=== PATIENT | male | born 1965 | race Caucasian/White ===

== ENCOUNTER 2024-02-24 02:09 | Emergency (ER) | payer OTHER, SELFPAY ==
[2024-02-24 02:12] VITALS: BP 138/110
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
[2024-02-24] MEDS: TORADOL 60 MG IM (03:48)
[2024-02-24 04:07] VITALS: BP 148/97
== END 2024-02-24 04:09 | disposition home or self-care (01) ==
LOC: EMR 02:09
PROVIDERS: EMERGENCY PHYSICIAN Emergency Medicine; FAMILY PHYSICIAN Physician Assistant Medical
DX: M60.9 Myositis, unspecified (principal); F41.9 Anxiety disorder, unspecified; K21.9 Gastro-esophageal reflux disease without esophagitis; Z82.49 Family history of ischemic heart disease and other diseases of the circulatory system; Z83.49 Family history of other endocrine, nutritional and metabolic diseases; Z85.840 Personal history of malignant neoplasm of eye; Z86.16 Personal history of COVID-19; Z87.891 Personal history of nicotine dependence
CPT/HCPCS: 99282; 96372

== ENCOUNTER 2024-03-11 10:34 | Emergency (ER) | payer OTHER, SELFPAY ==
[2024-03-11 10:43] VITALS: BP 132/96
--- NOTE | 2024-03-11 11:19 | ED.GENMED ---
History of Present Illness
General
Chief Complaint: Musculo-Skeletal Complaint
Source: patient
Time Seen by Provider: 03/11/24 10:52
Travel History
Have you had any contact with someone who has COVID-19?: No
Do you have any symptoms of coronavirus? Fever > 100 degrees, chills, cough, shortness of breath, sore throat, loss of taste or smell, muscle aches, or headache?: No
History of Present Illness
History of Present Illness:
58-year-old male presenting to the emergency department for evaluation of atraumatic right knee pain x 1 day, states no specific injury but notes that he had fallen 2 days prior not have pain to the right knee following. Patient notes a previous
history of needing his right knee drained and is not sure if this is needed today. Denies any fevers, chills, rigors, calf pain or swelling. Patient states he does have a history of gout but that this is something that has not bothered him in a a
while. Patient did not take anything for his pain prior to arrival to the emergency department.
Past History
Past History
ED Past Medical History: GERD, Psychiatric (anxiety), Other (eye melanoma, head injury, Migraines, Gout) and Other (COVID-18 May 2021); Negative Asthma, HTN, Hypercholesterolemia or NIDDM
ED Past Surgical History: Orthopedic (Right elbow surgery), Tonsilectomy and Other (Left inguinal hernia repair, prior head injury requiring craniotomy)
Patient has exhibited threatening behavior?: No
PSI?: No
Social History
Tobacco: Former smoker (Quit March 2020)
Alcohol: Former (12 pack Beer and shots previously, On Vivitrol inj monthly starting Jun; relapsed 01/07/23)
Drug: None
Personal:
Living: alone
Employment: Employed (at a bar)
Family History
Family History: Other (Sister with thyroid disease); Negative Diabetes, Hypertension, Early CAD or CAD
Review of Systems
Review of Systems
All Other Systems: ROS reviewed and negative except as documented in HPI and ROS
Phy Exam
Physical Exam
Physical Exam:
GENERAL: Alert , in no apparent distress
EYE: conjunctiva clear
Head: Normocephalic atraumatic
NECK: Supple,
ENT: mmm.
LUNGS: no acute respiratory distress
NEUROLOGICAL: Alert and oriented
SKIN: Warm and dry, abrasion to the left forearm and left knee
MUSCULOSKELETAL: Right knee: No obvious deformity, erythema, edema, ecchymosis, abrasions or lacerations. No joint effusion. Tenderness over the proximal portion of the patella. Patient does allow for range of motion with pain. No calf
tenderness or edema. Extremities otherwise warm and well-perfused and neurovascularly intact. No laxity to the joint.
PSYCH: Normal and appropriate interaction.
Scores
Heart Failure Risk
Heart Failure Risk Score: Not Applicable
Heart Score for Chest Pain Patients
STEMI patient?: Not applicable
Withdrawal Assessment of Alcohol
Withdrawal Assessment Completed?: Not applicable
Course
Orders/Labs/Results
Orders:
Orders
03/11/24 10:47
CR Knee- Right 4 Or More View* Urgent
Comment:
Reason For Exam: pain/swelling
03/11/24 11:19
Naproxen [Naprosyn] 500 mg PO NOW STA
Oxycodone/Acetaminophen [Percocet 5/325] 1 tablet PO NOW STA
Vital Signs
Initial and Last Documented VS:
Initial Vital Signs
Temp Pulse Resp BP Pulse Ox
97.8 F 89 16 132/96 94
03/11/24 10:43 03/11/24 10:43 03/11/24 10:43 03/11/24 10:43 03/11/24 10:43
Last Documented Vital Signs
Temp Pulse Resp BP Pulse Ox
97.8 F 89 16 132/96 94
03/11/24 10:43 03/11/24 10:43 03/11/24 10:43 03/11/24 10:43 03/11/24 10:43
MDM/Problems Addressed
Differential Diagnosis Includes:
Osteoarthritis, gout, no concern for septic joint, given lack of injury I have less concern for fracture. Like
MDM/Problems Addressed:
58-year-old male presenting to the emergency department for evaluation of atraumatic right knee pain x 1 day. Has not attempted any medications for relief of pain today. No overlying signs of infection. X-ray was ordered from triage and shows
some mild degenerative changes but otherwise no fracture. No evidence for joint effusion that would require arthrocentesis. Will treat with NSAIDs. Dose of Percocet given in the ER. Patient is otherwise stable for discharge home and outpatient
management with his orthopedist.
*Radiology
Radiology exam reviewed: preliminary read by ED provider (No fracture )
*Pulse Oximetry
Patient hypoxic: no
*Critical Care Note
Total Time (30-74mins, 75-104mins- exclusive of procedures): Not Applicable
ED Attending Note
-
Portions of this chart may have been created with voice recognition software.� Occasional wrong word or��sound alike� substitutions may have occurred due to the inherent limitations of voice recognition software.
Discharge Plan
Departure
Patient Disposition: Home (Routine Discharge)
Date of Disposition: 03/11/24
Time of Disposition: 11:20
Patient with high blood pressure during this ER visit?: No
Discharge Problem:
Knee pain, right
Instructions: Knee Pain (DC)
Prescriptions:
New
naproxen 500 mg tablet
500 mg PO BID 7 Days Qty: 14 0RF
No Action
sertraline [Zoloft] 50 MG tablet
50 mg PO DAILY
levothyroxine [Synthroid] 50 mcg Tablet
50 mcg PO DAILY AT 0700
thiamine HCl (vitamin B1) 100 mg Tablet
100 mg PO BID Qty: 0 0RF
folic acid 1 mg Tablet
1 mg PO DAILY Qty: 0 0RF
diclofenac sodium 75 mg tablet,delayed release (DR/EC)
75 mg PO BID PRN (Reason: pain) Qty: 30 0RF
Referrals:
Chema Green MD [Family Provider] -
Interventions
Interventions:
*Risk Screen - Suicide Last Done: 03/11/24 10:46
*General Assessment Last Done: 03/11/24 11:37
*Neglect/Abuse Screening Last Done: 03/11/24 10:46
*ED COVID-19 Vaccine History Last Done: 03/11/24 10:43
*Nursing Disposition Last Done: 03/11/24 11:37
ED-Musculoskeletal Assessment Last Done: 03/11/24 11:36
Discharge Date and Time
Discharge Date/Time: 03/11/24 11:37
Print Language: MALAWIAN
[2024-03-11] MEDS: NAPROSYN 500 MG PO (11:30)
[2024-03-11] MEDS: PERCOCET 5/325 1 TABLET PO (11:31)
== END 2024-03-11 11:37 | disposition home or self-care (01) ==
LOC: EMR 10:34
PROVIDERS: EMERGENCY PHYSICIAN Emergency Medicine; FAMILY PHYSICIAN Internal Medicine
DX: M25.561 Pain in right knee (principal); K21.9 Gastro-esophageal reflux disease without esophagitis; F41.9 Anxiety disorder, unspecified; Z82.49 Family history of ischemic heart disease and other diseases of the circulatory system; Z83.49 Family history of other endocrine, nutritional and metabolic diseases; Z85.840 Personal history of malignant neoplasm of eye; Z86.16 Personal history of COVID-19; Z87.891 Personal history of nicotine dependence
CPT/HCPCS: 99283; 73564

== ENCOUNTER 2024-03-12 04:49 | Emergency (ER) | payer OTHER, SELFPAY ==
[2024-03-12 04:51] VITALS: BP 131/97
--- NOTE | 2024-03-12 06:51 | ED.MUSCINJ ---
HPI-Injury
General
Chief Complaint: Musculo-Skeletal Complaint
Source: patient and records
Exam Limitations: none
Time Seen by Provider: 03/12/24 06:02
Nursing documentation reviewed up to this point in time: agreed with
Travel History
Have you had any contact with someone who has COVID-19?: No
Do you have any symptoms of coronavirus? Fever > 100 degrees, chills, cough, shortness of breath, sore throat, loss of taste or smell, muscle aches, or headache?: No
History of Present Illness-Injury
Initial Injury comments:
58 yo male presents to the emergency department c/o right knee pain for the past 30 hours. He was seen yesterday for same complaint. He noted some redness on his knee.
Past History
Past History
ED Past Medical History: GERD, Psychiatric (anxiety), Other (eye melanoma, head injury, Migraines, Gout) and Other (COVID-18 May 2021); Negative Asthma, HTN, Hypercholesterolemia or NIDDM
ED Past Surgical History: Orthopedic (Right elbow surgery), Tonsilectomy and Other (Left inguinal hernia repair, prior head injury requiring craniotomy)
Patient has exhibited threatening behavior?: No
PSI?: No
Social History
Tobacco: Former smoker (Quit March 2020)
Alcohol: Former (12 pack Beer and shots previously, On Vivitrol inj monthly starting Jun; relapsed 01/07/23)
Drug: None
Personal:
Living: alone
Employment: Employed (at a bar)
Family History
Family History: Other (Sister with thyroid disease); Negative Diabetes, Hypertension, Early CAD or CAD
Review of Systems
Review of Systems
Allergies reviewed?: Yes
All Other Systems: Not applicable
Constitutional: Reports no symptoms
EENT: Reports no symptoms
Respiratory: Reports no symptoms
Cardiac: Reports no symptoms
ABD/GI: Reports no symptoms
: Reports no symptoms
Musculoskeletal: Reports joint pain
Skin: Reports other (redness)
Neurological: Reports no symptoms
Endocrine: Reports no symptoms
Hematologic/Lymphatic: Reports no symptoms
Psychiatric: Reports no symptoms
Musculoskeletal Injury Exam
Musculoskeletal Injury Exam
Right Knee:
Pain with Movement?: Mild
Tender to palpation?: Moderate
Soft tissue swelling?: Mild
External deformity and angulation?: None
Joint effusion?: None
Contusion?: None
Hematoma-local bleeding into tissue?: None
Strain- Sprain- Tear (Connective tissue injury)?: None
Crepitus with movement?: No
Joint instability?: No
Malalignment/deformity?: No
Range of motion: Limited
Distal skin color and temperature: normal-warm & good color
Capillary Refill: normal
Normal distal neurovascular exam?: Yes
Peripheral Pulses: popliteal (right): 4+ and dorsalis pedis (right): 4+
Phy Exam
Physical Exam
Physical Exam:
General: No acute distress, afebrile
Respiratory: No respiratory distress
Cardiovascular: Equal pulses in all extremities
Injury Course
Orders/Labs/Results
Orders:
Orders
03/12/24 06:49
Ketorolac [Toradol] 15 mg IM NOW STA
Pantoprazole [Protonix] 40 mg PO NOW STA
Prednisone [Deltasone] 50 mg PO NOW STA
MDM/Problems Addressed
Differential Diagnosis Includes:
gout, fracture
MDM/Problems Addressed:
58 yo male with right knee pain. Possibly due to gout.
*Radiology
Radiology exam reviewed: radiology read reviewed (right knee xray small effusion, no fracture)
*Pulse Oximetry
Patient hypoxic: no
*EKG
Interpreted by ED Provider?: NA
*Medical Affairs Director Interpretation
Rate: Medical Affairs Director- N/A
*Critical Care Note
Total Time (30-74mins, 75-104mins- exclusive of procedures): Not Applicable
Patient Management
Escalation/DeEscalation of care consider admission/obs:
admit not indicated
ED Attending Note
-
Portions of this chart may have been created with voice recognition software.� Occasional wrong word or��sound alike� substitutions may have occurred due to the inherent limitations of voice recognition software.
Discharge Plan
Departure
Patient Disposition: Home (Routine Discharge)
Date of Disposition: 03/12/24
Time of Disposition: 07:00
Patient with high blood pressure during this ER visit?: Yes
Condition: Good
Discharge Problem:
Acute pain of right knee
Instructions: Knee Pain (DC), Gout ED
Prescriptions:
New
prednisone 50 mg tablet
50 mg PO DAILY Qty: 5 0RF
pantoprazole [Protonix] 40 mg tablet,delayed release (DR/EC)
40 mg PO DAILY Qty: 30 0RF
No Action
sertraline [Zoloft] 50 MG tablet
50 mg PO DAILY
levothyroxine [Synthroid] 50 mcg Tablet
50 mcg PO DAILY AT 0700
thiamine HCl (vitamin B1) 100 mg Tablet
100 mg PO BID Qty: 0 0RF
folic acid 1 mg Tablet
1 mg PO DAILY Qty: 0 0RF
diclofenac sodium 75 mg tablet,delayed release (DR/EC)
75 mg PO BID PRN (Reason: pain) Qty: 30 0RF
naproxen 500 mg tablet
500 mg PO BID 7 Days Qty: 14 0RF
Referrals:
Teresita Jiang PA-C [Family Provider] -
Activity Restrictions/Additional Instructions:
Follow up with your orthopedist. Return for any concerns.
Interventions
Interventions:
*Risk Screen - Suicide Last Done: 03/12/24 04:51
*General Assessment Last Done: 03/12/24 04:51
*Neglect/Abuse Screening Last Done: 03/12/24 04:51
ED- Fall Risk Assessment Last Done: 03/12/24 07:13
*ED COVID-19 Vaccine History Last Done: 03/12/24 07:09
*Nursing Disposition Last Done: 03/12/24 07:13
ED-Musculoskeletal Assessment Last Done: 03/12/24 06:29
Discharge Date and Time
Print Language: MACANESE
[2024-03-12] MEDS: PROTONIX 40 MG PO (07:04)
[2024-03-12] MEDS: TORADOL 15 MG IM (07:04)
[2024-03-12] MEDS: DELTASONE 50 MG PO (07:04)
[2024-03-12 07:08] VITALS: BP 124/82
== END 2024-03-12 07:13 | disposition home or self-care (01) ==
LOC: EMR 04:49
PROVIDERS: EMERGENCY PHYSICIAN Emergency Medicine; FAMILY PHYSICIAN Physician Assistant Medical
DX: M25.561 Pain in right knee (principal); K21.9 Gastro-esophageal reflux disease without esophagitis; F41.9 Anxiety disorder, unspecified; Z82.49 Family history of ischemic heart disease and other diseases of the circulatory system; Z83.49 Family history of other endocrine, nutritional and metabolic diseases; Z85.840 Personal history of malignant neoplasm of eye; Z86.16 Personal history of COVID-19; Z87.891 Personal history of nicotine dependence
CPT/HCPCS: 99282; 96372

== ENCOUNTER 2024-03-30 19:44 | Emergency (ER) | payer OTHER, SELFPAY ==
[2024-03-30 19:54] VITALS: BP 133/84
[2024-03-30 20:18] LABS: % Basophils 1.3 % (0-2); % Eosinophils 5.6 % (0-6); % Immature Granulocytes 0.6 % (0-0.5); % Lymphocytes 36.5 % (20.5-51.1); % Monocytes 9.1 % (1.7-9.3); % Neutrophils 46.9 % (42.2-75.2); Absolute Basophils 0.1 10^3/uL (0-0.2); Absolute Eosinophils 0.4 10^3/uL (0-0.7); Absolute Lymphocytes 2.3 10^3/uL (1.2-3.4); Absolute Monocytes 0.6 10^3/uL (0.1-0.6); Hematocrit 38.3 % (39.0-52.0); Mean Corp Hgb Conc. 36.6 g/dL (33.0-37.0); Mean Corpuscular Hgb 31.8 pg (27.0-31.0); Mean Platelet Volume 9.9 fL (7.4-10.4); Nucleated Red Blood Cells % 0 % (-); Platelet Count 188 10^3/uL (130-400); Red Cell Dist. Width 12.7 % (11.5-14.5); White Blood Cell Count 6.4 10^3/uL (4.8-10.8)
[2024-03-30 20:39] LABS: ALT (SGPT) 17 U/L (0-50); AST (SGOT) 20 U/L (17-59); Albumin 4.7 g/dl (3.5-5.0); Alkaline Phosphatase 63 U/L (38-126); Blood Urea Nitrogen 19 mg/dl (9-20); Calcium 9.9 mg/dl (8.4-10.2); Carbon Dioxide 23 mmol/L (22-30); Chloride 105 mmol/L (98-107); Glucose 98 mg/dl (70-99); Potassium 4.1 mmol/L (3.5-5.1); Sodium 137 mmol/L (135-145); Total Bilirubin 0.7 mg/dl (0.2-1.3); Total Protein 7.5 g/dl (6.3-8.2); eGFR > 60.00
[2024-03-30 20:43] LABS: Troponin I < 0.012 ng/ml
--- NOTE | 2024-03-30 21:07 | ED.GENMED ---
History of Present Illness
General
Chief Complaint: Chest Pain
Source: patient
Exam Limitations: none
Time Seen by Provider: 03/30/24 21:07
History of Present Illness
History of Present Illness:
58-year-old male complaining of chest pain. Started 3 days ago. Has become continuous since late this afternoon. Nonpleuritic not exertional. No diaphoresis. Some mild shortness of breath.
Past History
Past History
ED Past Medical History: GERD, Psychiatric (anxiety), Other (eye melanoma, head injury, Migraines, Gout) and Other (COVID-18 May 2021); Negative Asthma, HTN, Hypercholesterolemia or NIDDM
ED Past Surgical History: Orthopedic (Right elbow surgery), Tonsilectomy and Other (Left inguinal hernia repair, prior head injury requiring craniotomy)
Patient has exhibited threatening behavior?: No
PSI?: No
Social History
Tobacco: Former smoker (Quit March 2020)
Alcohol: Former (12 pack Beer and shots previously, On Vivitrol inj monthly starting Jun; relapsed 01/07/23)
Drug: None
Personal:
Living: alone
Employment: Employed (at a bar)
Family History
Family History: Other (Sister with thyroid disease); Negative Diabetes, Hypertension, Early CAD or CAD
Review of Systems
Review of Systems
All Other Systems: Not applicable
Constitutional: Denies fever
Respiratory: Denies cough
Cardiac: Denies palpitations or syncope
Phy Exam
Physical Exam
Physical Exam:
GENERAL: Alert and oriented in no apparent distress
EYE: Orbits normal.
NECK: Supple, no significant adenopathy.
ENT: Pharynx without erythema
CARDIAC: Regular rate and rhythm without any obvious murmurs.
LUNGS: Clear breath sounds,normal
ABDOMEN: Soft, without focal tenderness or distention
NEUROLOGICAL: Alert and oriented , grossly non-focal
SKIN: Warm and dry, no rash or lesion, no discoloration, skin intact.
MUSCULOSKELETAL: No edema,no deformity.Good color
PSYCH: Normal and appropriate interaction.
Scores
Heart Score for Chest Pain Patients
STEMI patient?: No
History: Slightly or Non-Suspicious
ECG: Normal
Age: >45 - <65 years
Risk Factors: 1 or 2 Risk Factors
Troponin: </= Normal Limit
Heart Score for Chest Pain Patients: 2
Heart Score Risk: 2.5% MACE over next 6 weeks
Course
Orders/Labs/Results
Orders:
Orders
03/30/24 19:45
EKG [Electrocardiogram (*1)] Urgent
Reason for Study: Chest Pain
EKG- Treatment ONCE
03/30/24 20:06
Complete Blood Count/With Diff Urgent
Comprehensive Metabolic Panel Urgent
Troponin I Urgent
03/30/24 21:16
EKG- Treatment ONCE
CR Chest - 2 Views Urgent
Comment:
Reason For Exam: cp
03/30/24 23:00
Electrocardiogram (*1) Stat
Reason for Study: Other
Other Reason for Exam: chest pain
03/30/24 23:50
Troponin I Urgent
Abnormal Lab Results
03/30/24
20:06
RBC 4.40 L 10^6/uL
(4.70-6.10)
Hct 38.3 L %
(39.0-52.0)
MCH 31.8 H pg
(27.0-31.0)
Immature Gran % 0.6 H %
(0-0.5)
03/30/24 20:06
03/30/24 20:06
Vital Signs
Initial and Last Documented VS:
Initial Vital Signs
Temp Pulse Resp BP Pulse Ox
98.2 F 71 18 133/84 96
03/30/24 19:54 03/30/24 19:54 03/30/24 19:54 03/30/24 19:54 03/30/24 19:54
Last Documented Vital Signs
Temp Pulse Resp BP Pulse Ox
98.2 F 71 18 133/84 96
03/30/24 19:54 03/30/24 19:54 03/30/24 19:54 03/30/24 19:54 03/30/24 21:30
MDM/Problems Addressed
Differential Diagnosis Includes:
58-year-old male with no known cardiac disease presents with not exertional chest pain. Continuous since late this afternoon with initial normal EKG and troponin. Repeat EKG is stable. A few risk factors but not overwhelming. Given the prolonged
symptoms with negative cardiac testing reasonable for close outpatient follow-up.
*Pulse Oximetry
Patient hypoxic: no
*EKG
Interpreted by ED Provider?: Yes
Interpretation: abnormal
Comparison EKG: changes noted
Heart Rate: 68
Rate: normal
Rhythm: sinus
[place]: normal axis
Interval: normal interval
QRS Pattern: poor R-wave progression
Ischemia: non-specific ST changes
*Critical Care Note
Total Time (30-74mins, 75-104mins- exclusive of procedures): Not Applicable
Data Reviewed
Review of Other/Old Records Reveals: Labs, Records and Testing
Update Note
Update Note:
Repeat EKG normal sinus rhythm at 64. No acute changes. Poor R wave progression. Patient is remained clinically stable and nontoxic. I am comfortable with close cardiac outpatient follow-up
ED Attending Note
-
Portions of this chart may have been created with voice recognition software.� Occasional wrong word or��sound alike� substitutions may have occurred due to the inherent limitations of voice recognition software.
Discharge Plan
Departure
Patient Disposition: Home (Routine Discharge)
Date of Disposition: 03/31/24
Time of Disposition: 01:29
Patient with high blood pressure during this ER visit?: Yes
Discharge Problem:
Anterior chest pain
Instructions: Chest Pain CBC Follow Up, BLOOD PRESSURE
Prescriptions:
No Action
naproxen 500 mg tablet
500 mg PO BIDPRN PRN (Reason: neck/muscle pain)
Referrals:
Teresita Jiang PA-C [Family Provider] - Follow up in 2-3 days
Interventions
Interventions:
*Risk Screen - Suicide Last Done: 03/30/24 21:30
*General Assessment Last Done: 03/30/24 21:30
*Neglect/Abuse Screening Last Done: 03/30/24 21:30
ED- Fall Risk Assessment Last Done: 03/30/24 21:30
*ED COVID-19 Vaccine History Last Done: 03/30/24 21:30
ED- Cardiac Assessment Last Done: 03/30/24 21:30
Discharge Date and Time
Print Language: POLISH
[2024-03-30 21:29] VITALS: BP 131/77
[2024-03-30 21:45] VITALS: BMI 27.4
--- NOTE | 2024-03-30 21:57 | PHANOTE ---
Med Rec Note:
Pt was previously on Levothyroxine 50mcg Daily, Sertraline 100mg Daily and Atorvastatin 40mg QPM. Pt states he hasn't taken these meds in almost 6 months and needs to get back on them.
[2024-03-30 22:00] VITALS: BP 123/84
[2024-03-30 22:15] VITALS: BP 124/87
[2024-03-30 23:00] VITALS: BP 125/86
[2024-03-31] VITALS: BP 128/82
[2024-03-31 00:19] LABS: Troponin I < 0.012 ng/ml
[2024-03-31 01:00] VITALS: BP 156/85
== END 2024-03-31 01:50 | disposition home or self-care (01) ==
LOC: EMR 19:44
PROVIDERS: EMERGENCY PHYSICIAN Emergency Medicine; FAMILY PHYSICIAN Physician Assistant Medical
DX: R07.89 Other chest pain (principal); R06.02 Shortness of breath; R03.0 Elevated blood-pressure reading, without diagnosis of hypertension; K21.9 Gastro-esophageal reflux disease without esophagitis; F41.9 Anxiety disorder, unspecified; G43.909 Migraine, unspecified, not intractable, without status migrainosus; M10.9 Gout, unspecified; Z85.840 Personal history of malignant neoplasm of eye; Z86.16 Personal history of COVID-19; Z87.891 Personal history of nicotine dependence
CPT/HCPCS: 99284; 71046; 80053; 84484; 85025; 93005

== ENCOUNTER 2024-04-20 21:45 | Emergency (ER) | payer OTHER, SELFPAY ==
[2024-04-20 21:47] VITALS: BP 154/92
--- NOTE | 2024-04-20 22:00 | ED.GENMED ---
History of Present Illness
General
Chief Complaint: Swelling
Time Seen by Provider: 04/20/24 22:00
History of Present Illness
History of Present Illness:
HPI: The patient presents due to concerns for recurrence of gout. He states he no longer drinks alcohol. He ate spicy food (which is set gout attacks off in the past) 2 days ago. He tried to call his primary care doctor who would not prescribe
steroids which have helped him in the past without seeing the patient. He has tried allopurinol for gout without much success.
EXAM:
GENERAL: Well appearing in no distress
HEENT: Moist oral mucosa
CARDIOVASCULAR: No murmurs, normal heart rate, regular rhythm, No chest wall tenderness
PULMONARY: No respiratory distress, breath sounds are clear and equal
ABDOMEN: Soft with no peritoneal signs, no tenderness
NEUROLOGIC: Excellent strength all extremities, no coordination deficits
PSYCHIATRIC: Appropriate mental status, normal insight and judgement
EXTREMITIES: There is a patch of erythema to the dorsal medial aspect of the right foot with no significant abnormality noted at the right first MTP joint
SKIN: As above
TIME OF INITIAL ENCOUNTER: 10 PM
NUMBER AND COMPLEXITY OF PROBLEMS ADDRESSED AT THE ENCOUNTER
� Chronic conditions affecting care: Gout
� Acute Exacerbation and/or Progression of Chronic Illness: This is an acute exacerbation of a chronic problem
� Differential Diagnosis includes: Gout attack, cellulitis
AMOUNT AND/OR COMPLEXITY OF DATA TO BE REVIEWED AND ANALYZED
� I performed an independent evaluation of and my interpretation is:
EKG:
CT:
X-rays:
Laboratory Studies:
Other:
� Review of other/old records: Chest x-ray negative from earlier this month
� Clinical information was obtained by an independent historian: None needed
� Prescriptions/Medications Considered but not given:
� Further testing considered but not performed:
RISK OF COMPLICATIONS AND/OR MORBIDITY OR MORTALITY OF PATIENT MANAGEMENT
� Social determinants of health affecting care: Lives at home
� Discussion with other providers: None needed
� Escalation of care including admission/observation vs risk of discharge considered: The patient states that steroids have helped him in the past. He requests a dose now and will send a prescription to his pharmacy.
Past History
Past History
ED Past Medical History: GERD, Psychiatric (anxiety), Other (eye melanoma, head injury, Migraines, Gout) and Other (COVID-18 May 2021); Negative Asthma, HTN, Hypercholesterolemia or NIDDM
ED Past Surgical History: Orthopedic (Right elbow surgery), Tonsilectomy and Other (Left inguinal hernia repair, prior head injury requiring craniotomy)
Patient has exhibited threatening behavior?: No
PSI?: No
Social History
Tobacco: Former smoker (Quit March 2020)
Alcohol: Former (12 pack Beer and shots previously, On Vivitrol inj monthly starting Jun; relapsed 01/07/23)
Drug: None
Personal:
Living: alone
Employment: Employed (at a bar)
Family History
Family History: Other (Sister with thyroid disease); Negative Diabetes, Hypertension, Early CAD or CAD
Phy Exam
Physical Exam
Physical Exam:
See HPI
Scores
Heart Failure Risk
Heart Failure Risk Score: Not Applicable
Course
Orders/Labs/Results
Orders:
Orders
04/20/24 22:16
Ketorolac [Toradol] 30 mg IM NOW STA
Prednisone [Deltasone] 50 mg PO NOW STA
Vital Signs
Initial and Last Documented VS:
Initial Vital Signs
Temp Pulse Resp BP Pulse Ox
97.9 F 82 18 154/92 96
04/20/24 21:47 04/20/24 21:47 04/20/24 21:47 04/20/24 21:47 04/20/24 21:47
Last Documented Vital Signs
Temp Pulse Resp BP Pulse Ox
97.9 F 82 18 154/92 96
04/20/24 21:47 04/20/24 21:47 04/20/24 21:47 04/20/24 21:47 04/20/24 21:47
*Critical Care Note
Total Time (30-74mins, 75-104mins- exclusive of procedures): Not Applicable
ED Attending Note
-
Portions of this chart may have been created with voice recognition software.� Occasional wrong word or��sound alike� substitutions may have occurred due to the inherent limitations of voice recognition software.
Discharge Plan
Departure
Patient Disposition: Home (Routine Discharge)
Date of Disposition: 04/20/24
Time of Disposition: 22:17
Patient with high blood pressure during this ER visit?: Yes
Discharge Problem:
Acute gout, Gout
Instructions: Gout ED
Prescriptions:
New
prednisone 50 mg tablet
50 mg PO DAILY Qty: 4 0RF
No Action
naproxen 500 mg tablet
500 mg PO BIDPRN PRN (Reason: neck/muscle pain)
Activity Restrictions/Additional Instructions:
Follow-up with your primary care doctor. I sent a prescription for prednisone to your pharmacy. Return here if worse.
Interventions
Interventions:
*Risk Screen - Suicide Last Done: 04/20/24 21:47
*General Assessment Last Done: 04/20/24 21:47
*Neglect/Abuse Screening Last Done: 04/20/24 21:47
*Nursing Disposition Last Done: 04/20/24 22:44
ED- Cardiac Assessment Last Done: 04/20/24 22:41
ED- Pulmonary Assessment Last Done: 04/20/24 22:41
ED-Skin Assessment Last Done: 04/20/24 22:41
Discharge Date and Time
Print Language: CITIZEN OF [place]
[2024-04-20] MEDS: TORADOL 30 MG IM (22:21)
[2024-04-20] MEDS: DELTASONE 50 MG PO (22:21)
== END 2024-04-20 22:44 | disposition home or self-care (01) ==
LOC: EMR 21:45
PROVIDERS: EMERGENCY PHYSICIAN Emergency Medicine; FAMILY PHYSICIAN Internal Medicine
DX: M10.9 Gout, unspecified (principal); E11.9 Type 2 diabetes mellitus without complications; I10 Essential (primary) hypertension; K21.9 Gastro-esophageal reflux disease without esophagitis; Z82.49 Family history of ischemic heart disease and other diseases of the circulatory system; Z83.49 Family history of other endocrine, nutritional and metabolic diseases; Z85.840 Personal history of malignant neoplasm of eye; Z86.16 Personal history of COVID-19; Z87.891 Personal history of nicotine dependence
CPT/HCPCS: 99282; 96372

== ENCOUNTER 2024-05-18 10:40 | Emergency (ER) | payer SELFPAY ==
[2024-05-18 10:56] VITALS: BP 144/92
[2024-05-18 11:18] LABS: Urine Albumin Negative (Neg - Trace); Urine Bilirubin Negative (Negative); Urine Character Clear (Clear); Urine Color Yellow; Urine Glucose Negative (Negative); Urine Ketone Negative (Negative); Urine Leukocyte Negative (Negative); Urine Nitrite Negative (Negative); Urine Occult Blood Negative (Negative); Urine Urobilinogen Negative (Neg - 1+)
[2024-05-18 11:21] VITALS: BMI 28.8
[2024-05-18 11:24] VITALS: BP 132/95
[2024-05-18 11:25] VITALS: BMI 27.7
--- NOTE | 2024-05-18 11:30 | EDRN ---
Perez Hernandez [employer]ORTHAND TEACHER in room w/ pt at this time.
--- NOTE | 2024-05-18 11:38 | ED.GENMED ---
History of Present Illness
General
Chief Complaint: Male Genito-Urinary Symptoms
Source: patient
Exam Limitations: none
Time Seen by Provider: 05/18/24 11:25
Nursing documentation reviewed up to this point in time: agreed with
History of Present Illness
History of Present Illness:
Patient is a 58-year-old male who presents to the ER for evaluation. Patient reports the past couple days he has had tingling at the tip of his penis and some burning sensation and some mild testicular discomfort bilaterally. He denies any
swelling or injury. He denies any discharge. He was sexually active with his ex-girlfriend last week and is concerned about STD. He is concerned that she has been with other partners. He denies any nausea vomiting fever chills abdominal pain.
Past History
Past History
ED Past Medical History: GERD, Psychiatric (anxiety), Other (eye melanoma, head injury, Migraines, Gout) and Other (COVID-18 May 2021); Negative Asthma, HTN, Hypercholesterolemia or NIDDM
ED Past Surgical History: Orthopedic (Right elbow surgery), Tonsilectomy and Other (Left inguinal hernia repair, prior head injury requiring craniotomy)
Patient has exhibited threatening behavior?: No
PSI?: No
Social History
Tobacco: Former smoker (Quit March 2020)
Alcohol: Former (12 pack Beer and shots previously, On Vivitrol inj monthly starting Jun; relapsed 01/07/23)
Drug: None
Personal:
Living: alone
Employment: Employed (at a bar)
Family History
Family History: Other (Sister with thyroid disease); Negative Diabetes, Hypertension, Early CAD or CAD
Review of Systems
Review of Systems
Allergies reviewed?: Yes
All Other Systems: ROS reviewed and negative except as documented in HPI and ROS
Constitutional: Reports no symptoms; Denies fever
ABD/GI: Reports no symptoms
: Reports other (Tingling to penis mild scrotal pain)
Musculoskeletal: Reports no symptoms
Neurological: Reports no symptoms
Psychiatric: Reports no symptoms
Phy Exam
General Physical Exam
General Presentation: no apparent distress
General age: appears stated age
General Skin: warm and dry
General Habitus: normal
General Mental: alert
General Hydration: appears well hydrated
Gastrointestinal Exam
Gastrointestinal Exam: non tender and soft
Genitourinary Exam Male
Exam Male: circumcised, no discharge, normal external genitalia, normal testicular exam, no evidence of trauma, no lesions, no testicular swelling and no testicular tenderness
Neurological Exam
Neurological Exam: alert and oriented x3
Musculoskeletal Exam
Musculoskeletal Exam: full ROM
Skin Exam
Skin Exam: normal color and warm/dry
Psychiatric Exam
Psychiatric Exam: normal mood/affect
Course
Orders/Labs/Results
Orders:
Orders
05/18/24 10:59
Chlamydia/GC by PCR Urgent
NILSA Source: Urine
Specimen Description:
Source:: URINE
Date Specimen was Collected: 05/18/24
Time Specimen was Collected: 11:00
05/18/24 11:08
Urinalysis Reflex To Culture Urgent
Date Specimen was Collected: 05/18/24
Time Specimen was Collected: 10:58
05/18/24 11:37
US Scrotum Urgent
Comment:
Reason For Exam: Pain
Vital Signs
Initial and Last Documented VS:
Initial Vital Signs
Temp Pulse Resp BP Pulse Ox
98.3 F 82 18 144/92 95
05/18/24 10:56 05/18/24 10:56 05/18/24 10:56 05/18/24 10:56 05/18/24 10:56
Last Documented Vital Signs
Temp Pulse Resp BP Pulse Ox
98.3 F 75 16 131/91 96
05/18/24 10:56 05/18/24 13:28 05/18/24 13:28 05/18/24 13:28 05/18/24 13:28
MDM/Problems Addressed
MDM/Problems Addressed:
GC culture taken however there was a delay in the lab as they only resulted urine. It will be an additional an hour and 45 minutes to run the GC chlamydia. I did review this with patient he wishes to simply be treated for possible STD will treat
with Rocephin 500 mg IM and doxycycline 100 mg p.o. twice daily for the next 7 days. No acute findings on ultrasound. will recommend urology follow-up
*Critical Care Note
Total Time (30-74mins, 75-104mins- exclusive of procedures): Not Applicable
ED Attending Note
-
Portions of this chart may have been created with voice recognition software.� Occasional wrong word or��sound alike� substitutions may have occurred due to the inherent limitations of voice recognition software.
Discharge Plan
Departure
Patient Disposition: Home (Routine Discharge)
Date of Disposition: 05/18/24
Time of Disposition: 14:49
Patient with high blood pressure during this ER visit?: Yes
Condition: Fair
Covid-19: Not Applicable
Discharge Problem:
Dysuria
Instructions: BLOOD PRESSURE
Prescriptions:
New
doxycycline monohydrate 100 mg capsule
100 mg PO BID Qty: 14 0RF
No Action
naproxen 500 mg tablet
500 mg PO BIDPRN PRN (Reason: neck/muscle pain)
prednisone 50 mg tablet
50 mg PO DAILY Qty: 4 0RF
Referrals:
Natalio Edwards MD [Active] -
Chema Green MD [Family Provider] -
Activity Restrictions/Additional Instructions:
As discussed your results are pending but you were treated for possible STD.
A prescription was sent to your pharmacy to take as directed for the next week. Follow-up with urology. Given office a call today to make an appointment soon as possible return if any worsening of symptoms
Interventions
Interventions:
*Risk Screen - Suicide Last Done: 05/18/24 10:56
*General Assessment Last Done: 05/18/24 10:56
*Neglect/Abuse Screening Last Done: 05/18/24 10:56
ED- Fall Risk Assessment Last Done: 05/18/24 11:27
*ED COVID-19 Vaccine History Last Done: 05/18/24 11:27
ED-Male Genitourinary Assessment Last Done: 05/18/24 11:27
Discharge Date and Time
Print Language: [place]
[2024-05-18 13:28] VITALS: BP 131/91
--- NOTE | 2024-05-18 13:31 | EDRN ---
Perez Hernandez GRIT BLASTER in room w/pt at this time.
--- NOTE | 2024-05-18 13:45 | EDRN ---
Report was given to Cristiana MARY and pt moved to to await chlamidia test results.
[2024-05-18] MEDS: ROCEPHIN 500 MG IM (15:05)
[2024-05-18] MEDS: VIBRAMYCIN 100 MG PO (15:05)
[2024-05-18 15:23] VITALS: BP 139/97
== END 2024-05-18 15:24 | disposition home or self-care (01) ==
LOC: EMR 10:40
PROVIDERS: EMERGENCY PHYSICIAN Emergency Medicine; FAMILY PHYSICIAN Internal Medicine
DX: R30.0 Dysuria (principal); K21.9 Gastro-esophageal reflux disease without esophagitis; F41.9 Anxiety disorder, unspecified; Z82.49 Family history of ischemic heart disease and other diseases of the circulatory system; Z83.49 Family history of other endocrine, nutritional and metabolic diseases; Z85.840 Personal history of malignant neoplasm of eye; Z86.16 Personal history of COVID-19; Z87.891 Personal history of nicotine dependence
CPT/HCPCS: 99284; 76870; 81003; 87491; 87591; 93976

== ENCOUNTER 2024-05-24 02:46 | Emergency (ER) | payer OTHER, SELFPAY ==
[2024-05-24 02:48] VITALS: BP 142/96
--- NOTE | 2024-05-24 03:03 | ED.GENMED ---
History of Present Illness
General
Chief Complaint: Musculo-Skeletal Complaint
Source: patient, previous radiology exam (Knee x-ray February of this year for very similar complaint of right knee pain) and previous hospital records (ED visit x 2 February of this year for similar complaints of right knee pain.)
Exam Limitations: none
Time Seen by Provider: 05/24/24 02:54
Nursing documentation reviewed up to this point in time: agreed with
History of Present Illness
History of Present Illness:
This is a 58-year-old gentleman prior history of alcohol abuse has been sober more recently. He has history of gout, generalized anxiety and presents with complaints of right anterior knee pain, exquisite tenderness distal anterior knee with mild
local redness. 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 He has not taken anything for pain. Pain is worse with flexion of his knee, worse with direct palpation.
He does have history of gout and was evaluated in this ED twice in February with somewhat similar knee pain and thought was acute gouty arthropathy of his knee, treated with a course of prednisone with resolution.
He has not had a fever nor chills.
He remains sober.
No other associated symptoms.
Past History
Past History
ED Past Medical History: GERD, Psychiatric (anxiety), Other (eye melanoma, head injury, Migraines, Gout) and Other (COVID-18 May 2021); Negative Asthma, HTN, Hypercholesterolemia or NIDDM
ED Past Surgical History: Orthopedic (Right elbow surgery), Tonsilectomy and Other (Left inguinal hernia repair, prior head injury requiring craniotomy)
Patient has exhibited threatening behavior?: No
PSI?: No
Social History
Tobacco: Former smoker (Quit March 2020)
Alcohol: Former (12 pack Beer and shots previously, On Vivitrol inj monthly starting Jun; relapsed 01/07/23)
Drug: None
Personal:
Living: alone
Employment: Employed (at a bar)
Family History
Family History: Other (Sister with thyroid disease); Negative Diabetes, Hypertension, Early CAD or CAD
Phy Exam
Physical Exam
Physical Exam:
GENERAL: 58-year-old male appears somewhat older than stated age, awake and alert, mildly anxious otherwise in no acute distress.
EYE: . anicteric
NECK: Supple, nontender, no meningismus, no significant adenopathy.
ENT: oral mucosa is moist. No rhinorrhea.
CARDIAC: Regular rate and rhythm. no murmur.
LUNGS: Clear breath sounds bilaterally, no acute respiratory distress, no wheezes/rales/rhonchi
NEUROLOGICAL: Alert and oriented x3, no focal neuro deficits. Gait is steady.
SKIN: Warm and dry, normal color, skin intact. No rash.
MUSCULOSKELETAL: Right knee has very minimal erythema with minimal fullness at the patellar tendon insertion distal anterior aspect of the day. This focal area is exquisitely tender to palpation. There is no joint effusion, no tenderness about the
patella. Full range of motion of knee with increased pain with flexion greater than 90 degrees. Sensation and strength intact. Peripheral pulses are full and equal bilaterally.
PSYCH: Mildly anxious.
Course
Orders/Labs/Results
Orders:
Orders
05/24/24 03:02
Ketorolac [Toradol] 30 mg IM NOW STA
Prednisone [Deltasone] 50 mg PO NOW STA
Vital Signs
Initial and Last Documented VS:
Initial Vital Signs
Temp Pulse Resp BP Pulse Ox
97.4 F 86 22 142/96 94
05/24/24 02:48 05/24/24 02:48 05/24/24 02:48 05/24/24 02:48 05/24/24 02:48
Last Documented Vital Signs
Temp Pulse Resp BP Pulse Ox
97.4 F 86 22 142/96 94
05/24/24 02:48 05/24/24 02:48 05/24/24 02:48 05/24/24 02:48 05/24/24 02:48
MDM/Problems Addressed
Differential Diagnosis Includes:
Acute atraumatic right knee pain with focal tenderness to palpation and minimal erythema to distal anterior knee and aspect of patellar tendon I suspect is related to patellar tendinitis versus focal gout.
Will treat with a course of prednisone. Recommend elevation, local heat as tolerated.
As there has been no trauma, no indication for radiologic studies.
Right knee x-ray from February of this year reviewed, shows mild 3 compartment degenerative joint narrowing. Also note of calcific tendinitis of the quadricep tendon.
Focal tenderness at patellar tendon likely tendinitis in nature.
Chronic conditions affecting care: Psychiatric illness and Other (Prior history of gout.)
Acute Exacerbation and/or Progression of Chronic Illness: Other (Exacerbation of gout versus patellar tendinitis)
*Pulse Oximetry
Patient hypoxic: no
*Critical Care Note
Total Time (30-74mins, 75-104mins- exclusive of procedures): Not Applicable
ED Attending Note
-
Portions of this chart may have been created with voice recognition software.� Occasional wrong word or��sound alike� substitutions may have occurred due to the inherent limitations of voice recognition software.
Discharge Plan
Departure
Patient Disposition: Home (Routine Discharge)
Date of Disposition: 05/24/24
Time of Disposition: 03:10
Patient with high blood pressure during this ER visit?: No
Discharge Problem:
Patellar tendinitis of right knee
Instructions: Patellar Tendinopathy (DC)
Prescriptions:
New
prednisone 10 mg Tablet
See Rx Instructions .ROUTE .COMPLEX Qty: 30 0RF
Rx Instructions:
Take By Mouth:
40 mg daily x3 days, 30 mg daily x3 days,
20 mg daily x3 days, 10 mg daily x3 days.
No Action
naproxen 500 mg tablet
500 mg PO BIDPRN PRN (Reason: neck/muscle pain)
prednisone 50 mg tablet
50 mg PO DAILY Qty: 4 0RF
doxycycline monohydrate 100 mg capsule
100 mg PO BID Qty: 14 0RF
Referrals:
Royal Monae MD [Active] - Call in 1-3 days for appt
Interventions
Interventions:
*Risk Screen - Suicide Last Done: 05/24/24 02:48
*General Assessment Last Done: 05/24/24 03:03
*Neglect/Abuse Screening Last Done: 05/24/24 02:48
ED- Fall Risk Assessment Last Done: 05/24/24 03:03
*ED COVID-19 Vaccine History Last Done: 05/24/24 03:03
ED-Musculoskeletal Assessment Last Done: 05/24/24 03:03
Discharge Date and Time
Print Language: [place]BRE[place]
[2024-05-24 03:06] VITALS: BMI 25.7
[2024-05-24] MEDS: DELTASONE 50 MG PO (03:09)
[2024-05-24] MEDS: TORADOL 30 MG IM (03:10)
== END 2024-05-24 03:33 | disposition home or self-care (01) ==
LOC: EMR 02:46
PROVIDERS: EMERGENCY PHYSICIAN Emergency Medicine
DX: M76.51 Patellar tendinitis, right knee (principal); Z87.891 Personal history of nicotine dependence
CPT/HCPCS: 99284; 96372

== ENCOUNTER 2024-06-02 21:32 | Emergency (ER) | payer OTHER, SELFPAY ==
[2024-06-02 21:36] VITALS: BP 124/92
[2024-06-02 21:52] LABS: % Basophils 0.7 % (0-2); % Eosinophils 3.2 % (0-6); % Lymphocytes 37.8 % (20.5-51.1); % Monocytes 8.8 % (1.7-9.3); % Neutrophils 47.5 % (42.2-75.2); Absolute Basophils 0.1 10^3/uL (0-0.2); Absolute Eosinophils 0.2 10^3/uL (0-0.7); Absolute Immature Granulocytes 0.2 10^3/uL (0-0.05); Absolute Lymphocytes 2.8 10^3/uL (1.2-3.4); Absolute Monocytes 0.7 10^3/uL (0.1-0.6); Absolute Neutrophils 3.5 10^3/uL (1.4-6.5); Hematocrit 45.6 % (39.0-52.0); Hemoglobin 16.3 g/dL (13.0-18.0); Mean Corp Hgb Conc. 35.7 g/dL (33.0-37.0); Mean Corpuscular Hgb 32.4 pg (27.0-31.0); Mean Corpuscular Volume 90.7 fL (80.0-94.0); Mean Platelet Volume 9.2 fL (7.4-10.4); Nucleated Red Blood Cells % 0 % (-); Platelet Count 265 10^3/uL (130-400); Red Blood Cell Count 5.03 10^6/uL (4.70-6.10); Red Cell Dist. Width 12.5 % (11.5-14.5); White Blood Cell Count 7.4 10^3/uL (4.8-10.8)
[2024-06-02 22:08] LABS: COVID-19 Antigen Negative (Negative)
[2024-06-02 22:12] LABS: ALT (SGPT) 20 U/L (0-50); AST (SGOT) 26 U/L (17-59); Albumin 4.8 g/dl (3.5-5.0); Alkaline Phosphatase 66 U/L (38-126); Blood Urea Nitrogen 15 mg/dl (9-20); Calcium 9.7 mg/dl (8.4-10.2); Carbon Dioxide 21 mmol/L (22-30); Chloride 98 mmol/L (98-107); Glucose 90 mg/dl (70-99); Potassium 4.4 mmol/L (3.5-5.1); Sodium 136 mmol/L (135-145); Total Bilirubin 0.6 mg/dl (0.2-1.3); Total Protein 7.6 g/dl (6.3-8.2); eGFR > 60.00
[2024-06-02 22:22] VITALS: BP 139/97
[2024-06-02 22:49] VITALS: BMI 27.0
[2024-06-02] MEDS: NSS 1000 IV (22:57)
[2024-06-02 22:58] VITALS: BP 139/97
[2024-06-02 23:00] VITALS: BP 137/93
[2024-06-02 23:26] VITALS: BP 135/95
[2024-06-03] VITALS: BP 150/102
[2024-06-03 01:00] VITALS: BP 142/99
[2024-06-03] MEDS: ZOFRAN 4 MG IV (01:00)
--- NOTE | 2024-06-03 01:03 | ED.GENMED ---
History of Present Illness
<LEXI Cordero - Last Filed: 06/03/24 02:50>
General
Chief Complaint: Fever
Source: patient
Exam Limitations: none
Time Seen by Provider: 06/03/24 00:14
History of Present Illness
History of Present Illness:
This is a 58 year old male that comes in with c/o congestion. States that he started 4-5 days ago with sinus congestion. States that he has a headache across his forehead and he felt that he was just getting worse and worse. States that he had some
chest heaviness with SOB and there is a lot of mucous. States that he hat not been eating and that he feels nauseated. Denies any fever, chills, abd pain, vomiting, diarrhea, dizziness, urinary burning.
Past History
<LEXI Cordero - Last Filed: 06/03/24 02:50>
Past History
ED Past Medical History: GERD, Hypothyroidism, Psychiatric (anxiety, Depression), Other ( Left eye melanoma, head injury, Migraines, Gout, back pain, Hemorrhoids, ) and Other (COVID-18 May 2021); Negative Asthma, HTN, Hypercholesterolemia or NIDDM
ED Past Surgical History: Orthopedic (Right elbow surgery), Tonsilectomy and Other (Left inguinal hernia repair, prior head injury requiring craniotomy, Left eye tumor removed)
Patient has exhibited threatening behavior?: No
PSI?: No
Social History
Tobacco: Former smoker (Quit March 2020)
Alcohol: Former (12 pack Beer and shots previously, On Vivitrol inj monthly starting Jun; relapsed 01/07/23)
Drug: None
Personal:
Living: alone
Employment: Employed (at a bar)
Family History
Family History: Other (Sister with thyroid disease); Negative Diabetes, Hypertension, Early CAD or CAD
Review of Systems
<LEXI Cordero - Last Filed: 06/03/24 02:50>
Review of Systems
All Other Systems: ROS reviewed and negative except as documented in HPI and ROS
Constitutional: Reports no symptoms; Denies fever or chills
EENT: Reports no symptoms
Respiratory: Reports trouble breathing; Denies cough
Cardiac: Reports chest pain (Heaviness)
ABD/GI: Reports nausea; Denies abdominal pain, vomiting or diarrhea
: Reports no symptoms; Denies dysuria, frequency or urgency
Musculoskeletal: Reports no symptoms
Skin: Reports no symptoms
Neurological: Reports headache; Denies dizzy
Psychiatric: Reports no symptoms
Phy Exam
<LEXI Cordero - Last Filed: 06/03/24 02:50>
General Physical Exam
General Presentation: no apparent distress
General age: appears stated age
General Skin: warm and dry
General Habitus: normal
General Mental: alert
General Hydration: dry mucous membranes
ENT Exam
ENT Exam: TM's normal, pharynx normal and neck supple
Eye Exam
Eye Exam: EOMI
Cardiovascular Exam
Cardiovascular Exam: regular rate/rhythm, no edema, no murmur and normal peripheral pulses
Pulmonary Exam
Pulmonary Exam: lungs clear, no respiratory distress, no rales, chest non tender, no crackles, no rhonchi, no wheezing and no cough
Gastrointestinal Exam
Gastrointestinal Exam: normal bowel sounds, non tender, soft, no organomegaly, no pulsatile mass and non distended
Musculoskeletal Exam
Musculoskeletal Exam: full ROM and no edema
Skin Exam
Skin Exam: normal color, warm/dry, no rash and no petechia
Psychiatric Exam
Psychiatric Exam: normal mood/affect
Course
<LEXI Cordero - Last Filed: 06/03/24 02:50>
Orders/Labs/Results
Orders:
Orders
06/02/24 21:39
COVID-19 Antigen Urgent
Source: Nasal Swab
Complete Blood Count/With Diff Urgent
Comprehensive Metabolic Panel Urgent
Influenza A+B Rapid Molecular Urgent
NILSA Source: Nasal Swab
Specimen Description:
06/02/24 22:49
Chest [CR Chest - 2 Views ] Urgent
Comment:
Reason For Exam: Cough, SOB
06/02/24 22:56
0.9% Sodium Chloride 1000 ml [Nss] 1,000 ml IV BOLUS
06/03/24 00:57
Ondansetron Injectable [Zofran] 4 mg .ROUTE .STK-MED ONE
06/03/24 01:00
Ondansetron Injectable [Zofran] 4 mg IV NOW STA
06/03/24 01:03
Ketorolac [Toradol] 30 mg IV NOW STA
06/03/24 01:05
Electrocardiogram (*1) Urgent
Reason for Study: Shortness of Breath
EKG- Treatment ONCE
06/03/24 01:18
Troponin I Urgent
06/03/24 03:00
Add On- LAB Urgent
Tests Added?: Alcohol
Abnormal Lab Results
06/02/24
21:39
MCH 32.4 H pg
(27.0-31.0)
Abs Immat Gran (auto) 0.2 H 10^3/uL
(0-0.05)
Absolute Monos (auto) 0.7 H 10^3/uL
(0.1-0.6)
Immature Gran % 2.0 H %
(0-0.5)
Carbon Dioxide 21 L mmol/L
(22-30)
06/02/24 21:39
06/02/24 21:39
Carbon dioxide very slightly low. COVID negative. Influenza negative. Troponin <0.012
Vital Signs
Initial and Last Documented VS:
Initial Vital Signs
Temp Pulse Resp BP Pulse Ox
98.1 F 109 18 124/92 93
06/02/24 21:36 06/02/24 21:36 06/02/24 21:36 06/02/24 21:36 06/02/24 21:36
Last Documented Vital Signs
Temp Pulse Resp BP Pulse Ox
98.1 F 82 15 141/95 96
06/02/24 21:36 06/03/24 03:00 06/03/24 03:00 06/03/24 02:00 06/03/24 02:15
<Jerson Burch, DO - Last Filed: 06/03/24 03:14>
Orders/Labs/Results
Orders:
Orders
06/02/24 21:39
COVID-19 Antigen Urgent
Source: Nasal Swab
Complete Blood Count/With Diff Urgent
Comprehensive Metabolic Panel Urgent
Influenza A+B Rapid Molecular Urgent
NILSA Source: Nasal Swab
Specimen Description:
06/02/24 22:49
Chest [CR Chest - 2 Views ] Urgent
Comment:
Reason For Exam: Cough, SOB
06/02/24 22:56
0.9% Sodium Chloride 1000 ml [Nss] 1,000 ml IV BOLUS
06/03/24 00:57
Ondansetron Injectable [Zofran] 4 mg .ROUTE .STK-MED ONE
06/03/24 01:00
Ondansetron Injectable [Zofran] 4 mg IV NOW STA
06/03/24 01:03
Ketorolac [Toradol] 30 mg IV NOW STA
06/03/24 01:05
Electrocardiogram (*1) Urgent
Reason for Study: Shortness of Breath
EKG- Treatment ONCE
06/03/24 01:18
Troponin I Urgent
06/03/24 03:00
Add On- LAB Urgent
Tests Added?: Alcohol
Abnormal Lab Results
06/02/24
21:39
MCH 32.4 H pg
(27.0-31.0)
Abs Immat Gran (auto) 0.2 H 10^3/uL
(0-0.05)
Absolute Monos (auto) 0.7 H 10^3/uL
(0.1-0.6)
Immature Gran % 2.0 H %
(0-0.5)
Carbon Dioxide 21 L mmol/L
(22-30)
06/02/24 21:39
06/02/24 21:39
Vital Signs
Initial and Last Documented VS:
Initial Vital Signs
Temp Pulse Resp BP Pulse Ox
98.1 F 109 18 124/92 93
06/02/24 21:36 06/02/24 21:36 06/02/24 21:36 06/02/24 21:36 06/02/24 21:36
Last Documented Vital Signs
Temp Pulse Resp BP Pulse Ox
98.1 F 82 15 141/95 96
06/02/24 21:36 06/03/24 03:00 06/03/24 03:00 06/03/24 02:00 06/03/24 02:15
<LEXI Cordero - Last Filed: 06/03/24 02:50>
MDM/Problems Addressed
Differential Diagnosis Includes:
Viral syndrome,
MDM/Problems Addressed:
This is a 58 year old male that comes in with c/o sinus congestion and headache. States that he also felt SOB and had chest heaviness.
will check labs. Give IV fluids, COVID and chest x-ray.
back into see patient. Explained that his blood work is normal and he is negative for COVID and Influenza. chest x-ray is normal. Explained that this is most likely a viral illness. Patient to increase his water intake to 8-8oz glasses daily. Will
give patient a prescription for Zofran to help with any nausea so he can eat a well balanced diet. Follow up with the family doctor. Return with any concerns.
Chronic conditions affecting care:
NA
Acute Exacerbation and/or Progression of Chronic Illness:
NA
<LEXI Cordero - Last Filed: 06/03/24 02:50>
*Radiology
Radiology exam reviewed: preliminary read by ED provider (Chest- Negative for active disease. )
*Pulse Oximetry
Patient hypoxic: no
*EKG
Interpreted by ED Provider?: Yes
Heart Rate: 82
Rate: normal
Rhythm: sinus
[place]: normal axis
Interval: normal interval
QRS Pattern: normal QRS
Ischemia: no ischemia
*Client Sales And Service Officer Interpretation
Rate: normal
Heart Rate: 80
Rhythm: sinus
*Critical Care Note
Total Time (30-74mins, 75-104mins- exclusive of procedures): Not Applicable
ED Attending Note
<LEXI Cordero - Last Filed: 06/03/24 02:50>
-
Portions of this chart may have been created with voice recognition software.� Occasional wrong word or��sound alike� substitutions may have occurred due to the inherent limitations of voice recognition software.
<Jerson Burch DO - Last Filed: 06/03/24 03:14>
ED Attending Note
Patient seen and examined by attending physician: Yes
ED Attending Note:
Patient refused [facility] intervention. They will give him resources but he refused outpatient services.
Discharge Plan
Departure
Patient Disposition: Home (Routine Discharge)
Date of Disposition: 06/03/24
Time of Disposition: 02:41
Patient with high blood pressure during this ER visit?: Yes
Condition: Good
Covid-19: Negative COVID-19
Discharge Problem:
Acute viral syndrome
Instructions: Viral Syndrome (DC), BLOOD PRESSURE
Prescriptions:
No Action
naproxen 500 mg tablet
500 mg PO BIDPRN PRN (Reason: neck/muscle pain)
prednisone 50 mg tablet
50 mg PO DAILY Qty: 4 0RF
prednisone 10 mg Tablet
See Rx Instructions .ROUTE .COMPLEX Qty: 30 0RF
Rx Instructions:
Take By Mouth:
40 mg daily x3 days, 30 mg daily x3 days,
20 mg daily x3 days, 10 mg daily x3 days.
Referrals:
NONE,* [Family Provider] -
Activity Restrictions/Additional Instructions:
As discussed, your blood work is normal and you are negative for COVID and Influenza. You chest x-ray is normal. Please increase your water intake to 8-8oz glasses daily. Tylenol or Ibuprofen for fever and body aches. You may also try a Claritin or
Zyrtec as some of this congestion may be allergies. Follow up with the family doctor for recheck. IF YOU HAVE ANY OTHER CONCERNS PLEASE RETURN TO THE EMERGENCY ROOM
Interventions
Interventions:
*Risk Screen - Suicide Last Done: 06/02/24 22:49
*General Assessment Last Done: 06/02/24 22:49
*Neglect/Abuse Screening Last Done: 06/02/24 22:49
ED- Fall Risk Assessment Last Done: 06/02/24 22:47
*ED COVID-19 Vaccine History Last Done: 06/02/24 22:49
ED- Neurological Assessment Last Done: 06/02/24 22:47
ED-Skin Assessment Last Done: 06/02/24 22:47
Discharge Date and Time
Print Language: YORUBA
[2024-06-03] MEDS: TORADOL 30 MG IV (01:17)
[2024-06-03 02:00] VITALS: BP 141/95
[2024-06-03 02:18] LABS: Troponin I < 0.012 ng/ml
[2024-06-03] MEDS: ATIVAN 0.5 MG PO (03:20)
[2024-06-03 03:42] LABS: Alcohol 85 mg/dl
[2024-06-03 05:00] VITALS: BP 147/98
[2024-06-03 06:58] VITALS: BP 149/98
== END 2024-06-03 06:59 | disposition home or self-care (01) ==
LOC: EMR 21:32
PROVIDERS: Clinical Nurse Specialist Family Health; EMERGENCY PHYSICIAN Emergency Medicine
DX: B34.9 Viral infection, unspecified (principal); R51.9 Headache, unspecified; R07.89 Other chest pain; R06.02 Shortness of breath; R11.0 Nausea; Z11.52 Encounter for screening for COVID-19; K21.9 Gastro-esophageal reflux disease without esophagitis; E03.9 Hypothyroidism, unspecified; F41.9 Anxiety disorder, unspecified; F32.A Depression, unspecified; G43.909 Migraine, unspecified, not intractable, without status migrainosus; Z85.840 Personal history of malignant neoplasm of eye; Z86.16 Personal history of COVID-19; Z87.891 Personal history of nicotine dependence
CPT/HCPCS: 99284; 96374; 96375; 96361; 71046; 80053; 82077; 84484; 85025; 87502; 87811; 93005

== ENCOUNTER 2024-06-24 10:37 | Emergency (ER) | payer OTHER, SELFPAY ==
[2024-06-24 10:47] VITALS: BP 134/96
[2024-06-24] MEDS: VALIUM 5 MG PO (12:15)
[2024-06-24 12:26] LABS: % Basophils 0.7 % (0-2); % Eosinophils 3.6 % (0-6); % Immature Granulocytes 0.8 % (0-0.5); % Lymphocytes 28.3 % (20.5-51.1); % Monocytes 8.4 % (1.7-9.3); % Neutrophils 58.2 % (42.2-75.2); Absolute Basophils 0.1 10^3/uL (0-0.2); Absolute Eosinophils 0.3 10^3/uL (0-0.7); Absolute Immature Granulocytes 0.1 10^3/uL (0-0.05); Absolute Monocytes 0.6 10^3/uL (0.1-0.6); Absolute Neutrophils 4.2 10^3/uL (1.4-6.5); Hemoglobin 14.2 g/dL (13.0-18.0); Mean Corp Hgb Conc. 35.5 g/dL (33.0-37.0); Mean Corpuscular Hgb 32.6 pg (27.0-31.0); Nucleated Red Blood Cells % 0 % (-); Platelet Count 210 10^3/uL (130-400); Red Blood Cell Count 4.35 10^6/uL (4.70-6.10); Red Cell Dist. Width 12.6 % (11.5-14.5); White Blood Cell Count 7.1 10^3/uL (4.8-10.8)
[2024-06-24 12:46] LABS: ALT (SGPT) 36 U/L (0-50); AST (SGOT) 30 U/L (17-59); Albumin 4.4 g/dl (3.5-5.0); Alkaline Phosphatase 65 U/L (38-126); Blood Urea Nitrogen 11 mg/dl (9-20); Calcium 9.3 mg/dl (8.4-10.2); Carbon Dioxide 21 mmol/L (22-30); Chloride 105 mmol/L (98-107); Glucose 94 mg/dl (70-99); Potassium 4.5 mmol/L (3.5-5.1); Sodium 140 mmol/L (135-145); Total Bilirubin 0.4 mg/dl (0.2-1.3); Total Protein 6.8 g/dl (6.3-8.2); eGFR > 60.00
[2024-06-24 12:47] VITALS: BP 130/78
[2024-06-24 12:54] LABS: Alcohol None Detected
[2024-06-24 12:57] LABS: Amphetamines Negative (Negative); Barbiturates Negative (Negative); Benzodiazepines Negative (Negative); Buprenorphine Negative (Negative); Cocaine Negative (Negative); Marijuana Negative (Negative); Methadone Negative (Negative); Methamphetamines Negative (Negative); Opiates Negative (Negative); Phencyclidine Negative (Negative); Tricyclic Antidepressants Negative (Negative)
--- NOTE | 2024-06-24 14:01 | ED.GENMED ---
History of Present Illness
General
Chief Complaint: Alcohol Problem
Source: patient
Exam Limitations: none
Time Seen by Provider: 06/24/24 11:33
Nursing documentation reviewed up to this point in time: agreed with
History of Present Illness
History of Present Illness:
58-year-old male with past medical history of GERD, hypothyroidism, alcohol abuse presenting to the emergency department today seeking treatment for alcohol abuse. He claims that he is been drinking roughly 20 alcoholic drinks per day over the past
few months. Has a long history of alcoholism. Denies any thoughts of harming himself or others.
Past History
Past History
ED Past Medical History: GERD, Hypothyroidism, Psychiatric (anxiety, Depression), Other ( Left eye melanoma, head injury, Migraines, Gout, back pain, Hemorrhoids, ) and Other (COVID-18 May 2021); Negative Asthma, HTN, Hypercholesterolemia or NIDDM
ED Past Surgical History: Orthopedic (Right elbow surgery), Tonsilectomy and Other (Left inguinal hernia repair, prior head injury requiring craniotomy, Left eye tumor removed)
Patient has exhibited threatening behavior?: No
PSI?: No
Social History
Tobacco: Former smoker (Quit March 2020)
Alcohol: Former (12 pack Beer and shots previously, On Vivitrol inj monthly starting Jun; relapsed 01/07/23)
Drug: None
Personal:
Living: alone
Employment: Employed (at a bar)
Family History
Family History: Other (Sister with thyroid disease); Negative Diabetes, Hypertension, Early CAD or CAD
Review of Systems
Review of Systems
Allergies reviewed?: Yes
All Other Systems: ROS reviewed and negative except as documented in HPI and ROS
Phy Exam
Physical Exam
Physical Exam:
GENERAL: Alert , in no apparent distress
EYE: pupils equal and reactive
NECK: Supple, no significant adenopathy.
ENT: o/p clr, mmm.
CARDIAC: Regular rate and rhythm .
LUNGS: Clear breath sounds bilaterally, no acute respiratory distress, no wheezes/rales/rhonchi
ABDOMEN: Soft, without focal tenderness, no r/g, no cvat
NEUROLOGICAL: Alert and oriented, no focal neuro deficits
SKIN: Warm and dry, skin intact.
MUSCULOSKELETAL: No edema, well perfused.
PSYCH: Normal and appropriate interaction.
Scores
Withdrawal Assessment of Alcohol
Withdrawal Assessment Completed?: Yes
Nausea and Vomiting: Mild nausea with no vomiting
Tactile Disturbances: None
Tremor: Moderate, with patient's arms extended
Auditory Disturbances: Not present
Paroxysmal Sweats: No sweat visible
Visual Disturbances: Not present
Anxiety: Moderately anxious, or guarded, so anxiety is inferred
Headache, Fullness in Head: Not present
Agitation: Normal activity
Orientation and clouding of sensorium: Oriented and can do serial additions
Total CIWA Score: 9
Alcohol Withdrawal Medication Recommendation: Equal to MSAS Score 5-7. Lorazepam 1mg IV or PO NOW & re-assess q2hrs
Course
Orders/Labs/Results
Orders:
Orders
06/24/24 11:54
EKG [Electrocardiogram (*1)] Urgent
Reason for Study: Fatigue / Weakness
Diazepam [Valium] 5 mg PO NOW STA
06/24/24 11:55
EKG- Treatment ONCE
06/24/24 11:58
Alcohol Urgent
CBC/With Diff [Complete Blood Count/With Diff] Urgent
CMP [Comprehensive Metabolic Panel] Urgent
Urine Drug Abuse Screen Urgent
Date Specimen was Collected: 06/24/24
Time Specimen was Collected: 11:57
Abnormal Lab Results
06/24/24
11:58
RBC 4.35 L 10^6/uL
(4.70-6.10)
MCH 32.6 H pg
(27.0-31.0)
Abs Immat Gran (auto) 0.1 H 10^3/uL
(0-0.05)
Immature Gran % 0.8 H %
(0-0.5)
Carbon Dioxide 21 L mmol/L
(22-30)
06/24/24 11:58
06/24/24 11:58
Vital Signs
Initial and Last Documented VS:
Initial Vital Signs
Temp Pulse Resp BP Pulse Ox
98.9 F 97 18 134/96 95
06/24/24 10:47 06/24/24 10:47 06/24/24 10:47 06/24/24 10:47 06/24/24 10:47
Last Documented Vital Signs
Temp Pulse Resp BP Pulse Ox
98.9 F 84 18 130/78 97
06/24/24 10:47 06/24/24 12:47 06/24/24 12:47 06/24/24 12:47 06/24/24 12:47
MDM/Problems Addressed
MDM/Problems Addressed:
58-year-old male presenting to the emergency department today with concerns of alcohol abuse. Last drink was last night starting to have some withdrawal seeking treatment. Has been drinking 20 drinks a day for multiple months. Upon arrival vital
signs are normal patient no distress patient does have tremor with arms extended and has a CIWA score of roughly 10. He was given initial dose of benzodiazepine. Patient was seen by Jamie altamirano and set up for inpatient rehab. Stable throughout ER
stay. Went directly to rehab. return precautions given
*Critical Care Note
Total Time (30-74mins, 75-104mins- exclusive of procedures): Not Applicable
ED Attending Note
-
Portions of this chart may have been created with voice recognition software.� Occasional wrong word or��sound alike� substitutions may have occurred due to the inherent limitations of voice recognition software.
Discharge Plan
Departure
Patient Disposition: Home (Routine Discharge)
Date of Disposition: 06/24/24
Time of Disposition: 14:01
Patient with high blood pressure during this ER visit?: No
Condition: Good
Covid-19: Not Applicable
Discharge Problem:
Alcohol withdrawal
Instructions: Alcohol Use Disorder (DC)
Prescriptions:
No Action
naproxen 500 mg tablet
500 mg PO BIDPRN PRN (Reason: neck/muscle pain)
prednisone 50 mg tablet
50 mg PO DAILY Qty: 4 0RF
prednisone 10 mg Tablet
See Rx Instructions .ROUTE .COMPLEX Qty: 30 0RF
Rx Instructions:
Take By Mouth:
40 mg daily x3 days, 30 mg daily x3 days,
20 mg daily x3 days, 10 mg daily x3 days.
Referrals:
NONE,* [Family Provider] -
Activity Restrictions/Additional Instructions:
You came to the emergency department today seeking treatment for alcohol use. you had a reassuring assessment. Please go directly to the inpatient treatment center. Return for any worsening, new or concerning symptoms.
Interventions
Interventions:
*Risk Screen - Suicide Last Done: 06/24/24 10:47
*General Assessment Last Done: 06/24/24 10:47
*Neglect/Abuse Screening Last Done: 06/24/24 10:47
ED- Fall Risk Assessment Last Done: 06/24/24 11:14
*Nursing Disposition Last Done: 06/24/24 14:34
ED- Neurological Assessment Last Done: 06/24/24 11:14
Discharge Date and Time
Discharge Date/Time: 06/24/24 14:35
Print Language: SAMI
== END 2024-06-24 14:35 ==
LOC: EMR 10:37
PROVIDERS: Physician Assistant; EMERGENCY PHYSICIAN Emergency Medicine
DX: F10.139 Alcohol abuse with withdrawal, unspecified (principal); E03.9 Hypothyroidism, unspecified; K21.9 Gastro-esophageal reflux disease without esophagitis; Z87.891 Personal history of nicotine dependence
CPT/HCPCS: 99285; 80053; 80306; 82077; 85025; 93005

== ENCOUNTER 2024-10-03 07:28 | Emergency (ER) | payer OTHER, SELFPAY ==
[2024-10-03 07:30] VITALS: BP 162/110
--- NOTE | 2024-10-03 07:45 | ED.GENMED ---
History of Present Illness
General
Chief Complaint: Musculo-Skeletal Complaint
Time Seen by Provider: 10/03/24 07:35
History of Present Illness
History of Present Illness:
59-year-old presents to the emergency department for evaluation of nontraumatic right knee pain ongoing for the past 2 to 3 days. History of similar approximately 1 year ago. Denies any falls or trauma. Able to ambulate with significant
discomfort. Did not take any medication for symptoms
Past History
Past History
ED Past Medical History: GERD, Hypothyroidism, Psychiatric (anxiety, Depression), Other ( Left eye melanoma, head injury, Migraines, Gout, back pain, Hemorrhoids, ) and Other (COVID-18 May 2021); Negative Asthma, HTN, Hypercholesterolemia or NIDDM
ED Past Surgical History: Orthopedic (Right elbow surgery), Tonsilectomy and Other (Left inguinal hernia repair, prior head injury requiring craniotomy, Left eye tumor removed)
Patient has exhibited threatening behavior?: No
PSI?: No
Social History
Tobacco: Former smoker (Quit March 2020)
Alcohol: Former (12 pack Beer and shots previously, On Vivitrol inj monthly starting Jun; relapsed 01/07/23)
Drug: None
Personal:
Living: alone
Employment: Employed (at a bar)
Family History
Family History: Other (Sister with thyroid disease); Negative Diabetes, Hypertension, Early CAD or CAD
Review of Systems
Review of Systems
Allergies reviewed?: Yes
All Other Systems: ROS reviewed and negative except as documented in HPI and ROS
Phy Exam
Physical Exam
Physical Exam:
GEN: Well appearing, NAD, WDWN
HEENT: Oral mucosa moist, no scleral icterus
Cardiac: Regular rate
Lung: No respiratory distress, no tachypnea
MSK: No gross deformity or injuries. No right knee effusion. Range of motion intact but painful throughout. Straight leg raise normal. Focal tenderness to the proximal quadriceps tendon, no palpable deformities, normal patellar glide
Skin: Good color, no pallor or jaundice, no rashes
Neuro: AO x3, moves all extremities freely
Psych: Calm, cooperative
Course
Orders/Labs/Results
Orders:
Orders
10/03/24 07:44
Ketorolac [Toradol] 30 mg IM NOW STA
CR Knee- Right 4 Or More View* Urgent
Comment:
Reason For Exam: non traumatic pain
Vital Signs
Initial and Last Documented VS:
Initial Vital Signs
Temp Pulse Resp BP Pulse Ox
97.4 F 87 16 162/110 98
10/03/24 07:30 10/03/24 07:30 10/03/24 07:30 10/03/24 07:30 10/03/24 07:30
Last Documented Vital Signs
Temp Pulse Resp BP Pulse Ox
97.6 F 82 16 145/82 98
10/03/24 08:30 10/03/24 08:30 10/03/24 08:30 10/03/24 08:30 10/03/24 08:30
MDM/Problems Addressed
MDM/Problems Addressed:
Likely quadriceps tendinitis, discussed supportive care
*Critical Care Note
Total Time (30-74mins, 75-104mins- exclusive of procedures): Not Applicable
ED Attending Note
-
Portions of this chart may have been created with voice recognition software.� Occasional wrong word or��sound alike� substitutions may have occurred due to the inherent limitations of voice recognition software.
Discharge Plan
Departure
Patient Disposition: Home (Routine Discharge)
Date of Disposition: 10/03/24
Time of Disposition: 08:22
Patient with high blood pressure during this ER visit?: Yes
Discharge Problem:
Tendinitis of right quadriceps tendon
Instructions: Patellar Tendinopathy (DC)
Prescriptions:
New
celecoxib [Celebrex] 200 mg capsule
200 mg PO BID Qty: 20 0RF
No Action
naproxen 500 mg tablet
500 mg PO BIDPRN PRN (Reason: neck/muscle pain)
prednisone 50 mg tablet
50 mg PO DAILY Qty: 4 0RF
prednisone 10 mg Tablet
See Rx Instructions .ROUTE .COMPLEX Qty: 30 0RF
Rx Instructions:
Take By Mouth:
40 mg daily x3 days, 30 mg daily x3 days,
20 mg daily x3 days, 10 mg daily x3 days.
Referrals:
Jaime Livingston MD [Active] -
Activity Restrictions/Additional Instructions:
Ice often
Elevate when not walking
Use the prescribed medication and do not take additional over the counter ibuprofen, aleve, or aspirin
Follow up with Orthopedics
Interventions
Interventions:
*Risk Screen - Suicide Last Done: 10/03/24 07:30
*General Assessment Last Done: 10/03/24 07:30
*Neglect/Abuse Screening Last Done: 10/03/24 07:30
ED- Fall Risk Assessment Last Done: 10/03/24 08:01
*ED COVID-19 Vaccine History Last Done: 10/03/24 08:30
*Nursing Disposition Last Done: 10/03/24 08:30
ED-Musculoskeletal Assessment Last Done: 10/03/24 08:01
Discharge Date and Time
Discharge Date/Time: 10/03/24 08:30
Print Language: MOSOTHO
[2024-10-03] MEDS: TORADOL 30 MG IM (07:57)
[2024-10-03 08:00] VITALS: BMI 27.4
[2024-10-03 08:30] VITALS: BP 145/82
== END 2024-10-03 08:30 | disposition home or self-care (01) ==
LOC: EMR 07:28
PROVIDERS: EMERGENCY PHYSICIAN Emergency Medicine; FAMILY PHYSICIAN Internal Medicine
DX: M77.9 Enthesopathy, unspecified (principal); K21.9 Gastro-esophageal reflux disease without esophagitis; E03.9 Hypothyroidism, unspecified; F41.8 Other specified anxiety disorders; Z82.49 Family history of ischemic heart disease and other diseases of the circulatory system; Z83.49 Family history of other endocrine, nutritional and metabolic diseases; Z85.840 Personal history of malignant neoplasm of eye; Z86.16 Personal history of COVID-19; Z87.19 Personal history of other diseases of the digestive system; Z87.891 Personal history of nicotine dependence
CPT/HCPCS: 99283; 96372; 73564

== ENCOUNTER 2024-10-11 09:47 | Emergency (ER) | payer OTHER, SELFPAY ==
[2024-10-11 09:50] VITALS: BP 132/97
--- NOTE | 2024-10-11 11:18 | ED.GENMED ---
History of Present Illness
General
Chief Complaint: Musculo-Skeletal Complaint
Time Seen by Provider: 10/11/24 11:10
History of Present Illness
History of Present Illness:
59-year-old male presents to the emergency department for evaluation of continued pain to the right knee. Was seen in this ER by myself 8 days ago and diagnosed with quadriceps tendinitis. He has since seen orthopedics and was put on oral
corticosteroids as well as oral NSAIDs. He has had increasing pain coinciding with increased activity. He is requesting pain medication today.
Past History
Past History
ED Past Medical History: GERD, Hypothyroidism, Psychiatric (anxiety, Depression), Other ( Left eye melanoma, head injury, Migraines, Gout, back pain, Hemorrhoids, ) and Other (COVID-18 May 2021); Negative Asthma, HTN, Hypercholesterolemia or NIDDM
ED Past Surgical History: Orthopedic (Right elbow surgery), Tonsilectomy and Other (Left inguinal hernia repair, prior head injury requiring craniotomy, Left eye tumor removed)
Patient has exhibited threatening behavior?: No
PSI?: No
Social History
Tobacco: Former smoker (Quit March 2020)
Alcohol: Former (12 pack Beer and shots previously, On Vivitrol inj monthly starting Jun; relapsed 01/07/23)
Drug: None
Personal:
Living: alone
Employment: Employed (at a bar)
Family History
Family History: Other (Sister with thyroid disease); Negative Diabetes, Hypertension, Early CAD or CAD
Review of Systems
Review of Systems
Allergies reviewed?: Yes
All Other Systems: ROS reviewed and negative except as documented in HPI and ROS
Phy Exam
Physical Exam
Physical Exam:
GEN: Well appearing, NAD, WDWN
HEENT: Oral mucosa moist, no scleral icterus
Cardiac: Regular rate
Lung: No respiratory distress, no tachypnea
MSK: Minor right knee effusion noted, range of motion limited secondary to pain
Skin: Good color, no pallor or jaundice, no rashes
Neuro: AO x3, moves all extremities freely
Psych: Calm, cooperative
Course
Orders/Labs/Results
Orders:
Orders
10/11/24 11:18
Knee Immobilizer Right-Treatme ONCE
Hydrocodone 5/APAP 325 [[place] 5/325] 1 tablet PO NOW STA
Vital Signs
Initial and Last Documented VS:
Initial Vital Signs
Temp Pulse Resp BP Pulse Ox
98.6 F 98 16 132/97 98
10/11/24 09:50 10/11/24 09:50 10/11/24 09:50 10/11/24 09:50 10/11/24 09:50
Last Documented Vital Signs
Temp Pulse Resp BP Pulse Ox
98.6 F 98 16 132/97 98
10/11/24 09:50 10/11/24 09:50 10/11/24 09:50 10/11/24 09:50 10/11/24 09:50
MDM/Problems Addressed
MDM/Problems Addressed:
Likely quadriceps tendinitis versus suprapatellar bursitis. Discussed supportive care, recommend orthopedic follow-up, will provide analgesics given that he is failing steroids and NSAIDs
*Critical Care Note
Total Time (30-74mins, 75-104mins- exclusive of procedures): Not Applicable
ED Attending Note
-
Portions of this chart may have been created with voice recognition software.� Occasional wrong word or��sound alike� substitutions may have occurred due to the inherent limitations of voice recognition software.
Discharge Plan
Departure
Patient Disposition: Home (Routine Discharge)
Date of Disposition: 10/11/24
Time of Disposition: 11:19
Patient with high blood pressure during this ER visit?: No
Discharge Problem:
Bursitis of right knee
Instructions: Bursitis ED
Prescriptions:
New
hydrocodone-acetaminophen 5-325 mg tablet
1 tab PO Q6H PRN (Reason: pain) Qty: 8 0RF
No Action
naproxen 500 mg tablet
500 mg PO BIDPRN PRN (Reason: neck/muscle pain)
prednisone 50 mg tablet
50 mg PO DAILY Qty: 4 0RF
prednisone 10 mg Tablet
See Rx Instructions .ROUTE .COMPLEX Qty: 30 0RF
Rx Instructions:
Take By Mouth:
40 mg daily x3 days, 30 mg daily x3 days,
20 mg daily x3 days, 10 mg daily x3 days.
celecoxib [Celebrex] 200 mg capsule
200 mg PO BID Qty: 20 0RF
Referrals:
Horacio Brumfield MD [Family Provider] -
Stand Alone Forms: Return to Work
Interventions
Interventions:
*Risk Screen - Suicide Last Done: 10/11/24 09:50
*General Assessment Last Done: 10/11/24 09:50
*Neglect/Abuse Screening Last Done: 10/11/24 09:50
ED- Fall Risk Assessment Last Done: 10/11/24 10:53
*ED COVID-19 Vaccine History Last Done: 10/11/24 09:50
*Nursing Disposition Last Done: 10/11/24 11:38
ED-Musculoskeletal Assessment Last Done: 10/11/24 10:53
Discharge Date and Time
Discharge Date/Time: 10/11/24 11:43
Print Language: INDONESIAN
[2024-10-11] MEDS: NORCO 5/325 1 TABLET PO (11:27)
== END 2024-10-11 11:43 | disposition home or self-care (01) ==
LOC: EMR 09:47
PROVIDERS: EMERGENCY PHYSICIAN Emergency Medicine; FAMILY PHYSICIAN Internal Medicine
DX: M70.51 Other bursitis of knee, right knee (principal); E03.9 Hypothyroidism, unspecified; K21.9 Gastro-esophageal reflux disease without esophagitis; Z85.820 Personal history of malignant melanoma of skin; Z87.891 Personal history of nicotine dependence
CPT/HCPCS: 99283

== ENCOUNTER 2024-11-01 12:48 | Emergency (ER) | payer OTHER, SELFPAY ==
[2024-11-01 12:56] VITALS: BP 126/84
[2024-11-01] MEDS: TORADOL 30 MG IM (13:27)
--- NOTE | 2024-11-01 13:49 | ED.GENMED ---
History of Present Illness
General
Chief Complaint: Musculo-Skeletal Complaint
Source: patient
Exam Limitations: none
Time Seen by Provider: 11/01/24 13:00
Nursing documentation reviewed up to this point in time: agreed with
History of Present Illness
History of Present Illness:
59-year-old male past medical history of GERD, hypothyroidism presenting to the emergency department today with concerns of ongoing right-sided knee discomfort. This has been ongoing for multiple weeks. He is followed up with [facility]
and our hospital twice now over the past month or so. He has been following with orthopedics but claims that the orthopedic doctor is currently in [place] and unable to answer his calls. He has been intermittently taking opioids and NSAIDs without
full relief. He also has been taking gabapentin. He claims that he is having trouble ambulating secondary to the pain as well. He has been using a knee brace. Denies any fevers redness or warmth.
Past History
Past History
ED Past Medical History: GERD, Hypothyroidism, Psychiatric (anxiety, Depression), Other ( Left eye melanoma, head injury, Migraines, Gout, back pain, Hemorrhoids, ) and Other (COVID-18 May 2021); Negative Asthma, HTN, Hypercholesterolemia or NIDDM
ED Past Surgical History: Orthopedic (Right elbow surgery), Tonsilectomy and Other (Left inguinal hernia repair, prior head injury requiring craniotomy, Left eye tumor removed)
Patient has exhibited threatening behavior?: No
PSI?: No
Social History
Tobacco: Former smoker (Quit March 2020)
Alcohol: Former (12 pack Beer and shots previously, On Vivitrol inj monthly starting Jun; relapsed 01/07/23)
Drug: None
Personal:
Living: alone
Employment: Employed (at a bar)
Family History
Family History: Other (Sister with thyroid disease); Negative Diabetes, Hypertension, Early CAD or CAD
Review of Systems
Review of Systems
Allergies reviewed?: Yes
All Other Systems: ROS reviewed and negative except as documented in HPI and ROS
Phy Exam
Physical Exam
Physical Exam:
GENERAL: Alert , in no apparent distress
EYE: pupils equal and reactive
NECK: Supple, no significant adenopathy.
ENT: o/p clr, mmm.
CARDIAC: Regular rate and rhythm .
LUNGS: Clear breath sounds bilaterally, no acute respiratory distress, no wheezes/rales/rhonchi
ABDOMEN: Soft, without focal tenderness, no r/g, no cvat
NEUROLOGICAL: Alert and oriented, no focal neuro deficits
SKIN: Warm and dry, skin intact.
MUSCULOSKELETAL: Swelling throughout the right knee no redness or warmth increased discomfort with flexion of the knee. Normal distal pulses dorsalis pedis and posterior tibialis. No discomfort throughout the hip area or ankle. well perfused.
PSYCH: Normal and appropriate interaction.
Course
Orders/Labs/Results
Orders:
Orders
11/01/24 13:21
Ketorolac [Toradol] 30 mg IM NOW STA
11/01/24 13:25
Body Fluid Cell Count Urgent
What is the Body Fluid: joint
Date Specimen was Collected: 11/01/24
Time Specimen was Collected: 13:22
Comment: with DIFF
Body Fluid Crystals Urgent
What is the Body Fluid: joint
Date Specimen was Collected: 11/01/24
Time Specimen was Collected: 13:22
Lyme Progressive Urgent
Fluid Culture with Gram Stain Urgent
NILSA Source: Joint Fluid
Specimen Description:
Date Specimen was Collected: 11/01/24
Time Specimen was Collected: 13:22
11/01/24 14:05
EKG [Electrocardiogram (*1)] Urgent
Reason for Study: Fatigue / Weakness
BMP [Basic Metabolic Panel] Urgent
11/01/24 14:10
Prednisone [Deltasone] 50 mg PO NOW STA
11/01/24 14:05
11/01/24 14:05
Vital Signs
Initial and Last Documented VS:
Initial Vital Signs
Temp Pulse Resp BP Pulse Ox
98.2 F 77 20 126/84 98
11/01/24 12:56 11/01/24 12:56 11/01/24 12:56 11/01/24 12:56 11/01/24 12:56
Last Documented Vital Signs
Temp Pulse Resp BP Pulse Ox
98.2 F 77 20 126/84 98
11/01/24 12:56 11/01/24 12:56 11/01/24 12:56 11/01/24 12:56 11/01/24 12:56
MDM/Problems Addressed
MDM/Problems Addressed:
59-year-old male presenting to the emergency department today with concerns of right-sided knee discomfort. Has been ongoing over the past month has a scheduled outpatient MRI has been following up with orthopedics. Has been seen in multiple ERs
and also has been seen by orthopedics. Ongoing discomfort today. On arrival here vital signs are normal patient no distress patient without redness or warmth to the knee but increased discomfort with palpation and movement of the knee. Joint tap
was performed that michaela 20 cc. Fluid analysis shows crystals. Less than 50,000 white blood cells seems to be less likely to be infectious otherwise patient treated with steroid advised for close orthopedic follow-up return precautions given.
*Critical Care Note
Total Time (30-74mins, 75-104mins- exclusive of procedures): Not Applicable
ED Attending Note
-
Portions of this chart may have been created with voice recognition software.� Occasional wrong word or��sound alike� substitutions may have occurred due to the inherent limitations of voice recognition software.
Discharge Plan
Departure
Patient Disposition: Home (Routine Discharge)
Date of Disposition: 11/01/24
Time of Disposition: 14:10
Patient with high blood pressure during this ER visit?: No
Condition: Good
Covid-19: Not Applicable
Discharge Problem:
Gout of knee
Instructions: Knee Pain (DC)
Prescriptions:
New
prednisone 50 mg tablet
50 mg PO DAILY 4 Days Qty: 4 0RF
No Action
naproxen 500 mg tablet
500 mg PO BIDPRN PRN (Reason: neck/muscle pain)
prednisone 50 mg tablet
50 mg PO DAILY Qty: 4 0RF
prednisone 10 mg Tablet
See Rx Instructions .ROUTE .COMPLEX Qty: 30 0RF
Rx Instructions:
Take By Mouth:
40 mg daily x3 days, 30 mg daily x3 days,
20 mg daily x3 days, 10 mg daily x3 days.
celecoxib [Celebrex] 200 mg capsule
200 mg PO BID Qty: 20 0RF
hydrocodone-acetaminophen 5-325 mg tablet
1 tab PO Q6H PRN (Reason: pain) Qty: 8 0RF
Referrals:
Horacio Brumfield MD [Primary Care Provider] -
Chema Green MD [Family Provider] -
Activity Restrictions/Additional Instructions:
You came to the emergency department today with concerns of knee discomfort. You are found to have gout to your right knee. Please take the prescribed medication and follow-up closely with orthopedics. Return for any worsening, new or concerning
symptoms.
Interventions
Interventions:
*Risk Screen - Suicide Last Done: 11/01/24 12:59
*General Assessment Last Done: 11/01/24 12:56
*Neglect/Abuse Screening Last Done: 11/01/24 12:59
ED- Fall Risk Assessment Last Done: 11/01/24 12:59
*ED COVID-19 Vaccine History Last Done: 11/01/24 12:59
ED-Musculoskeletal Assessment Last Done: 11/01/24 12:59
Discharge Date and Time
Print Language: MALTESE
[2024-11-01 13:51] LABS: Body Fluid Mononuclear 8.8 %; Body Fluid Polymorphonuclear 91.2 %; Body Fluid WBC 34165 /CUMM
[2024-11-01 13:56] LABS: Body Fluid Second Tech DW
[2024-11-01] MEDS: DELTASONE 50 MG PO (14:18)
== END 2024-11-01 14:25 | disposition home or self-care (01) ==
LOC: EMR 12:48
PROVIDERS: Physician Assistant; EMERGENCY PHYSICIAN Emergency Medicine; FAMILY PHYSICIAN Internal Medicine; PRIMARYCARE PHYSICIAN Internal Medicine
DX: M10.9 Gout, unspecified (principal); E03.9 Hypothyroidism, unspecified; K21.9 Gastro-esophageal reflux disease without esophagitis; Z82.49 Family history of ischemic heart disease and other diseases of the circulatory system; Z83.49 Family history of other endocrine, nutritional and metabolic diseases; Z85.840 Personal history of malignant neoplasm of eye; Z86.16 Personal history of COVID-19; Z87.19 Personal history of other diseases of the digestive system; Z87.891 Personal history of nicotine dependence
CPT/HCPCS: 99283; 20610; 96372; 87015; 87070; 87205; 89051; 89060

== ENCOUNTER → 2024-11-03 11:25 | Outpatient (REF) | payer OTHER, SELFPAY | LOC: MRI 3T 11:25 | PROVIDERS: ATTENDING PHYSICIAN Orthopaedic Surgery; FAMILY PHYSICIAN Internal Medicine | DX: M23.91 Unspecified internal derangement of right knee (principal) | CPT/HCPCS: 73721 ==

== ENCOUNTER 2024-12-22 06:56 | Emergency (ER) | payer OTHER, SELFPAY ==
[2024-12-22 07:02] VITALS: BP 131/95
--- NOTE | 2024-12-22 07:15 | EDRN ---
[facility]al[facility] TEST PILOT in to see pt at this time.
[2024-12-22 07:40] VITALS: BMI 26.8
[2024-12-22 07:44] VITALS: BP 145/106
[2024-12-22] MEDS: MOTRIN 600 MG PO (07:47)
--- NOTE | 2024-12-22 07:49 | ED.MUSCINJ ---
HPI-Injury
General
Chief Complaint: Musculo-Skeletal Complaint
Source: patient
Exam Limitations: none
Time Seen by Provider: 12/22/24 07:13
Nursing documentation reviewed up to this point in time: agreed with
History of Present Illness-Injury
Initial Injury comments:
59 yo male with no clinically significant past medical history presents for gradually increasing left knee pain and swelling over the past 3 days. No recollection of overuse or injury. He states the pain is 9/10. He [place] mile from
the [facility] and had no ride so he walked here.
Past History
Past History
ED Past Medical History: GERD, Hypothyroidism, Psychiatric (anxiety, Depression), Other ( Left eye melanoma, head injury, Migraines, Gout, back pain, Hemorrhoids, ) and Other (COVID-18 May 2021); Negative Asthma, HTN, Hypercholesterolemia or NIDDM
ED Past Surgical History: Orthopedic (Right elbow surgery), Tonsilectomy and Other (Left inguinal hernia repair, prior head injury requiring craniotomy, Left eye tumor removed)
Patient has exhibited threatening behavior?: No
PSI?: No
Social History
Tobacco: Former smoker (Quit March 2020)
Alcohol: Former (12 pack Beer and shots previously, On Vivitrol inj monthly starting Jun; relapsed 01/07/23)
Drug: None
Personal:
Living: with family
Employment: Employed (at a bar)
Family History
Family History: Other (Sister with thyroid disease); Negative Diabetes, Hypertension, Early CAD or CAD
Review of Systems
Review of Systems
Allergies reviewed?: Yes
All Other Systems: ROS reviewed and negative except as documented in HPI and ROS
Constitutional: Denies fever or chills
Musculoskeletal: Reports other (Pain and swelling left knee)
Skin: Reports no symptoms
Musculoskeletal Injury Exam
Musculoskeletal Injury Exam
Left Knee:
Pain with Movement?: Moderate
Tender to palpation?: Moderate
Soft tissue swelling?: Moderate
Joint effusion?: Moderate
Crepitus with movement?: No
Joint instability?: No
Malalignment/deformity?: No
Range of motion: Limited
Distal skin color and temperature: normal-warm & good color
Capillary Refill: normal
Normal distal neurovascular exam?: Yes
Phy Exam
Physical Exam
Physical Exam:
PHYSICAL EXAMINATION:
General: no apparent distress, not acutely ill
Neuro: alert and oriented.
Psychiatric: well kept. interactive and cooperative
Musculoskeletal: Moves with ease
Skin: Warm, pink.
Injury Course
Orders/Labs/Results
Orders:
Orders
12/22/24 07:46
Ibuprofen [Motrin] 600 mg .ROUTE .STK-MED ONE
12/22/24 07:47
Ibuprofen [Motrin] 600 mg PO NOW STA
12/22/24 07:48
Knee Immobilizer Left-Treatmen ONCE
12/22/24 07:58
Body Fluid Cell Count Urgent
What is the Body Fluid: joint
Date Specimen was Collected: 12/22/24
Time Specimen was Collected: 07:55
Comment: with DIFF
Body Fluid Crystals Urgent
What is the Body Fluid: joint
Date Specimen was Collected: 12/22/24
Time Specimen was Collected: 07:55
Body Fluid Glucose Urgent
Fluid Source: Other
Other Source: Left knee
Date Specimen was Collected: 12/22/24
Time Specimen was Collected: 07:55
Lyme Progressive Urgent
Fluid Culture with Gram Stain Urgent
NILSA Source: Joint Fluid
Specimen Description:
Date Specimen was Collected: 12/22/24
Time Specimen was Collected: 07:55
12/22/24 08:25
Knee, Left 4 or More Views [CR Knee - Left 4 Or More View*] Urgent
Comment:
Reason For Exam: pain, swelling, drained 30 ml
12/22/24 08:36
Oxycodone/Acetaminophen [Percocet 5/325] 2 tablet PO NOW STA
Procedures
Incision/Drainage/Joint Aspiration
Left Knee:
Anethesia: 1% Lidocaine with Epi
Preparation: cleaned with alcohol wipe
Type of procedure: aspiration
Nature of site: other (Suprapatellar effusion)
How much fluid was obtained?: number in mls (30)
Fluid description: clear and straw colored
Treatment: bandaid applied
MDM/Problems Addressed
MDM/Problems Addressed:
59 yo male with no clinically significant past medical history presents for gradually increasing left knee pain and swelling over the past 3 days. No recollection of overuse or injury. He states the pain is 9/10. [place] mile from
the hospital and had no ride so he walked here.
After draining 30 mL of clear straw-colored fluid, and given ibuprofen, patient states pain remains 'excruciating.'
10:00 a.m.
Knee xray initially read by this examiner: small suprapatellar effusion
Joint fluid not infected
Knee immobilizer and crutches provided.
Good pain relief after Percocet
He will follow-up with his orthopedic doctor who is not on staff here but is covered by his insurance
*Critical Care Note
Total Time (30-74mins, 75-104mins- exclusive of procedures): Not Applicable
ED Attending Note
-
Portions of this chart may have been created with voice recognition software.� Occasional wrong word or��sound alike� substitutions may have occurred due to the inherent limitations of voice recognition software.
Discharge Plan
Departure
Patient Disposition: Home (Routine Discharge)
Date of Disposition: 12/22/24
Time of Disposition: 10:06
Patient with high blood pressure during this ER visit?: No
Condition: Good
Discharge Problem:
Effusion of left knee, Acute pain of left knee
Instructions: Swollen Joints (DC), Using Cold for Pain, Knee pain - ED discharge instructions
Prescriptions:
No Action
naproxen 500 mg tablet
500 mg PO BIDPRN PRN (Reason: neck/muscle pain)
prednisone 50 mg tablet
50 mg PO DAILY Qty: 4 0RF
prednisone 10 mg Tablet
See Rx Instructions .ROUTE .COMPLEX Qty: 30 0RF
Rx Instructions:
Take By Mouth:
40 mg daily x3 days, 30 mg daily x3 days,
20 mg daily x3 days, 10 mg daily x3 days.
celecoxib [Celebrex] 200 mg capsule
200 mg PO BID Qty: 20 0RF
hydrocodone-acetaminophen 5-325 mg tablet
1 tab PO Q6H PRN (Reason: pain) Qty: 8 0RF
prednisone 50 mg tablet
50 mg PO DAILY 4 Days Qty: 4 0RF
Referrals:
Jaime Livingston MD [Active] - Next open appointment
Chema Green MD [Family Provider] -
Activity Restrictions/Additional Instructions:
As we discussed, wear the knee immobilizer when up and around at all times until further instructed by the orthopedic doctor.
Use the crutches as needed with gradually increasing weight bearing as comfort permits.
Call and make appointment with the orthopedic doctor for recheck within the next 1-2 weeks.
Ibuprofen 600 mg (with food) every 6 hours as needed for pain
Cold compress 20 minutes off and on today and tomorrow as much as you can to minimize swelling.
Interventions
Interventions:
*Risk Screen - Suicide Last Done: 12/22/24 07:42
*General Assessment Last Done: 12/22/24 07:40
*Neglect/Abuse Screening Last Done: 12/22/24 07:42
*ED- Fall Risk Assessment Last Done: 12/22/24 07:40
*ED COVID-19 Vaccine History Last Done: 12/22/24 07:40
*Nursing Disposition Last Done: 12/22/24 11:14
ED-Musculoskeletal Assessment Last Done: 12/22/24 07:42
Discharge Date and Time
Discharge Date/Time: 12/22/24 11:15
Print Language: YORUBA
--- NOTE | 2024-12-22 08:30 | EDRN ---
Unable to place immobilizer. Pt states pain is worse than when he came in. Pt moaning and uncomfortable appearing in L knee pain. TT to Lovely ELLIOTT.
[2024-12-22 08:32] VITALS: BP 130/103
[2024-12-22] MEDS: PERCOCET 5/325 2 TABLET PO (08:39)
[2024-12-22 08:48] LABS: Body Fluid Mononuclear 32.5 %; Body Fluid Polymorphonuclear 67.5 %; Body Fluid WBC 4838 /CUMM
[2024-12-22 09:00] VITALS: BP 128/85
[2024-12-22 09:09] LABS: Body Fluid Second Tech CF
[2024-12-22 10:00] VITALS: BP 128/93
[2024-12-22 11:00] VITALS: BP 127/90
[2024-12-23 15:02] LABS: Lyme Antibody Screen, EIA Negative (Negative)
== END 2024-12-22 11:15 | disposition home or self-care (01) ==
LOC: EMR 06:56
PROVIDERS: Registered Nurse; EMERGENCY PHYSICIAN Emergency Medicine; FAMILY PHYSICIAN Internal Medicine
DX: M25.462 Effusion, left knee (principal); M25.562 Pain in left knee; Z87.891 Personal history of nicotine dependence
CPT/HCPCS: 99284; 20610; 73564; 82945; 86618; 87015; 87070; 87205; 89051; 89060

== ENCOUNTER 2024-12-23 05:11 | Emergency (ER) | payer OTHER, SELFPAY ==
[2024-12-23 05:15] VITALS: BP 144/98; BMI 28.3
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
[2024-12-23] MEDS: PERCOCET 5/325 1 TABLET PO (06:44)
[2024-12-23] MEDS: DECADRON 10 MG PO (06:44)
[2024-12-23] MEDS: MOTRIN 400 MG PO (06:44)
[2024-12-23 07:04] VITALS: BP 138/85
== END 2024-12-23 07:36 | disposition home or self-care (01) ==
LOC: EMR 05:11
PROVIDERS: EMERGENCY PHYSICIAN Emergency Medicine
DX: M25.562 Pain in left knee (principal); M25.462 Effusion, left knee; E03.9 Hypothyroidism, unspecified; E11.9 Type 2 diabetes mellitus without complications; I10 Essential (primary) hypertension; Z87.891 Personal history of nicotine dependence
CPT/HCPCS: 99283

== ENCOUNTER 2025-01-19 23:38 | Emergency (ER) | payer OTHER, SELFPAY ==
[2025-01-19 23:45] VITALS: BP 135/90
[2025-01-20] VITALS (13 sets, daily range): BP systolic 124–133; BP diastolic 85–102; BMI 27.2
[2025-01-20 00:35] LABS: % Basophils 0.8 % (0-2); % Eosinophils 4.1 % (0-6); % Immature Granulocytes 1.4 % (0-0.5); % Lymphocytes 32.8 % (20.5-51.1); % Monocytes 7.6 % (1.7-9.3); % Neutrophils 53.3 % (42.2-75.2); Absolute Basophils 0.1 10^3/uL (0-0.2); Absolute Eosinophils 0.2 10^3/uL (0-0.7); Absolute Immature Granulocytes 0.1 10^3/uL (0-0.05); Absolute Lymphocytes 1.9 10^3/uL (1.2-3.4); Absolute Monocytes 0.5 10^3/uL (0.1-0.6); Absolute Neutrophils 3.2 10^3/uL (1.4-6.5); Hematocrit 41.1 % (39.0-52.0); Hemoglobin 14.4 g/dL (13.0-18.0); Mean Corpuscular Hgb 31.7 pg (27.0-31.0); Mean Corpuscular Volume 90.5 fL (80.0-94.0); Mean Platelet Volume 9.9 fL (7.4-10.4); Nucleated Red Blood Cells % 0 % (-); Platelet Count 207 10^3/uL (130-400); Red Blood Cell Count 4.54 10^6/uL (4.70-6.10); Red Cell Dist. Width 13.2 % (11.5-14.5); White Blood Cell Count 5.9 10^3/uL (4.8-10.8)
[2025-01-20 00:38] LABS: ALT (SGPT) 19 U/L (0-50); AST (SGOT) 20 U/L (17-59); Albumin 4.6 g/dl (3.5-5.0); Alkaline Phosphatase 52 U/L (38-126); Blood Urea Nitrogen 22 mg/dl (9-20); Calcium 9.7 mg/dl (8.4-10.2); Carbon Dioxide 23 mmol/L (22-30); Chloride 100 mmol/L (98-107); Estimated Creatinine Clearance 101 ml/min; Glucose 127 mg/dl (70-99); Potassium 4.4 mmol/L (3.5-5.1); Sodium 134 mmol/L (135-145); Total Bilirubin 0.8 mg/dl (0.2-1.3); Total Protein 7.6 g/dl (6.3-8.2); eGFR > 60.00
[2025-01-20 00:49] LABS: Troponin I < 0.012 ng/ml
--- NOTE | 2025-01-20 01:48 | ED.GENMED ---
History of Present Illness
General
Chief Complaint: Withdrawal Symptoms
Source: patient
Time Seen by Provider: 01/20/25 01:18
Nursing documentation reviewed up to this point in time: agreed with
History of Present Illness
History of Present Illness:
59-year-old male presents to the emergency department with acute alcohol withdrawal. He states that his last drink was 4 days ago. He started to have shakes 2 days ago. Tonight he was at an AA meeting and some of the participants urged him to
come to the emergency department. Upon arrival patient stated that he just wanted Ativan and that he did not want to seek treatment. He did not want to talk to [facility]. Patient also reported a brief episode of bright red blood per rectum.
Past History
Past History
ED Past Medical History: GERD, Hypothyroidism, Psychiatric (anxiety, Depression), Other ( Left eye melanoma, head injury, Migraines, Gout, back pain, Hemorrhoids, ) and Other (COVID-18 May 2021); Negative Asthma, HTN, Hypercholesterolemia or NIDDM
ED Past Surgical History: Orthopedic (Right elbow surgery), Tonsilectomy and Other (Left inguinal hernia repair, prior head injury requiring craniotomy, Left eye tumor removed)
Patient has exhibited threatening behavior?: No
PSI?: No
Social History
Tobacco: Former smoker (Quit March 2020)
Alcohol: Former (12 pack Beer and shots previously, On Vivitrol inj monthly starting Jun; relapsed 01/07/23)
Drug: None
Personal:
Living: with family
Employment: Employed (at a bar)
Family History
Family History: Other (Sister with thyroid disease); Negative Diabetes, Hypertension, Early CAD or CAD
Review of Systems
Review of Systems
Allergies reviewed?: Yes
All Other Systems: ROS reviewed and negative except as documented in HPI and ROS
Psychiatric: Reports anxiety
Scores
Withdrawal Assessment of Alcohol
Withdrawal Assessment Completed?: Yes
Nausea and Vomiting: No nausea and no vomiting
Tactile Disturbances: None
Tremor: Not visible, but can be felt fingertip to fingertip
Auditory Disturbances: Not present
Paroxysmal Sweats: No sweat visible
Visual Disturbances: Not present
Anxiety: No anxiety, at ease
Headache, Fullness in Head: Not present
Agitation: Normal activity
Orientation and clouding of sensorium: Oriented and can do serial additions
Total CIWA Score: 1
Alcohol Withdrawal Medication Recommendation: Equal to MSAS Score 0-4. Monitor & re-assess q2hrs, NO MEDICATION NEEDED
Course
Orders/Labs/Results
Orders:
Orders
01/19/25 23:39
Electrocardiogram (*1) Urgent
Reason for Study: Chest Pain
CMP [Comprehensive Metabolic Panel] Urgent
Complete Blood Count/With Diff Urgent
Troponin I Urgent
01/19/25 23:40
EKG- Treatment ONCE
01/20/25 01:43
Lorazepam [Ativan] 1 mg PO NOW STA
Abnormal Lab Results
01/20/25
00:09
RBC 4.54 L 10^6/uL
(4.70-6.10)
MCH 31.7 H pg
(27.0-31.0)
Abs Immat Gran (auto) 0.1 H 10^3/uL
(0-0.05)
Immature Gran % 1.4 H %
(0-0.5)
Sodium 134 L mmol/L
(135-145)
BUN 22 H mg/dl
(9-20)
Glucose 127 H mg/dl
(70-99)
01/20/25 00:09
01/20/25 00:09
Vital Signs
Initial and Last Documented VS:
Initial Vital Signs
Temp Pulse Resp BP Pulse Ox
98.4 F 80 20 135/90 95
01/19/25 23:45 01/19/25 23:45 01/19/25 23:45 01/19/25 23:45 01/19/25 23:45
Last Documented Vital Signs
Temp Pulse Resp BP Pulse Ox
98.1 F 61 15 132/89 96
01/20/25 03:00 01/20/25 06:30 01/20/25 01:30 01/20/25 06:00 01/20/25 06:30
*Critical Care Note
Total Time (30-74mins, 75-104mins- exclusive of procedures): Not Applicable
Update Note
Update Note:
Patient refuses [facility]
He does not want to speak with crisis
He does not feel he is going into withdrawal
He wishes to be discharged.
He states that he has a good support network with [facility].
He request a prescription for Ativan which I feel is reasonable.
ED Attending Note
-
Portions of this chart may have been created with voice recognition software.� Occasional wrong word or��sound alike� substitutions may have occurred due to the inherent limitations of voice recognition software.
Discharge Plan
Departure
Patient Disposition: Home (Routine Discharge)
Date of Disposition: 01/20/25
Time of Disposition: 06:41
Patient with high blood pressure during this ER visit?: Yes
Discharge Problem:
Alcohol withdrawal
Instructions: Anxiety, Adult (DC), Alcohol Use Disorder (DC), BLOOD PRESSURE
Prescriptions:
New
lorazepam [Ativan] 1 mg tablet
1 mg PO BID PRN (Reason: alcohol withdrawal) Qty: 7 0RF
No Action
naproxen 500 mg tablet
500 mg PO BIDPRN PRN (Reason: neck/muscle pain)
prednisone 50 mg tablet
50 mg PO DAILY Qty: 4 0RF
prednisone 10 mg Tablet
See Rx Instructions .ROUTE .COMPLEX Qty: 30 0RF
Rx Instructions:
Take By Mouth:
40 mg daily x3 days, 30 mg daily x3 days,
20 mg daily x3 days, 10 mg daily x3 days.
celecoxib [Celebrex] 200 mg capsule
200 mg PO BID Qty: 20 0RF
hydrocodone-acetaminophen 5-325 mg tablet
1 tab PO Q6H PRN (Reason: pain) Qty: 8 0RF
prednisone 50 mg tablet
50 mg PO DAILY 4 Days Qty: 4 0RF
methylprednisolone [Medrol (Raffy)] 4 mg tablets,dose pack
4 mg PO DAILY Qty: 21 0RF
oxycodone-acetaminophen [Percocet] 5-325 mg tablet
1 tab PO Q8H PRN (Reason: Pain) Qty: 10 0RF
colchicine 0.6 mg capsule
0.6 mg PO DAILY Qty: 7 0RF
Referrals:
Chema Green MD [Family Provider] -
Activity Restrictions/Additional Instructions:
Thank You for choosing [facility].
It was a pleasure meeting you and taking part in your care. We hope for your continued healing and wellness.
Please read discharge instructions in their entirety. However, they are for general education and may not describe your exact diagnosis at discharge. Information on your ER visit and medical conditions were discussed with you along with appropriate
follow up information...
If indicated, please take your medications as instructed and indicated on discharge paperwork.
Please schedule a follow up appointment as directed. Call to schedule an appointment
Please return to the emergency department with ANY change in, persisting, or worsening of symptoms. If any of your symptoms do not improve, or persist, or become more severe within 6-12 hours, please return to the emergency department for further
care.
Please return to the emergency department if you develop a headache, neck pain/stiffness, fever greater than 100.4F, chest pain, shortness of breath, persistent nausea, vomiting, slurred speech, difficulty walking, numbness/tingling, weakness, signs
of infection or any other symptoms that are worrisome to you.
If you have any questions or concerns please do not hesitate to call the Hospital at
Interventions
Interventions:
*Risk Screen - Suicide Last Done: 01/19/25 23:45
*General Assessment Last Done: 01/20/25 00:12
*Neglect/Abuse Screening Last Done: 01/19/25 23:45
*ED- Fall Risk Assessment Last Done: 01/20/25 00:12
*ED COVID-19 Vaccine History Last Done: 01/20/25 00:12
ED- Neurological Assessment Last Done: 01/20/25 00:14
ED-Psychological Assessment Last Done: 01/20/25 00:14
Discharge Date and Time
Print Language: SCOTTISH
[2025-01-20] MEDS: ATIVAN 1 MG PO (01:50)
== END 2025-01-20 06:49 | disposition home or self-care (01) ==
LOC: EMR 23:38
PROVIDERS: EMERGENCY PHYSICIAN Student in an Organized Health Care Education/Training Program; FAMILY PHYSICIAN Internal Medicine
DX: F10.239 Alcohol dependence with withdrawal, unspecified (principal); F41.9 Anxiety disorder, unspecified; Y90.9 Presence of alcohol in blood, level not specified; E03.9 Hypothyroidism, unspecified; E11.9 Type 2 diabetes mellitus without complications; I10 Essential (primary) hypertension; K62.5 Hemorrhage of anus and rectum; Z87.891 Personal history of nicotine dependence
CPT/HCPCS: 99283; 80053; 84484; 85025; 93005

== ENCOUNTER 2025-02-01 05:44 | Emergency (ER) | payer OTHER, SELFPAY ==
[2025-02-01 05:44] VITALS: BMI 27.1
[2025-02-01 05:46] VITALS: BP 152/94
[2025-02-01 06:07] VITALS: BP 156/103
--- NOTE | 2025-02-01 06:37 | ED.GENMED ---
History of Present Illness
General
Chief Complaint: Alcohol Problem
Time Seen by Provider: 02/01/25 06:06
History of Present Illness
History of Present Illness:
59-year-old male with history of anxiety, depression, alcohol abuse presenting to the emergency department for concern of alcohol withdrawal. Patient reports last ingestion of alcohol was yesterday around noon and since has been very tremulous, dry
heaving, sweating. Denies any hallucinations. Notes history of withdrawal in the past and rehabilitation stays. Denies any current chest pain or difficulty breathing. Denies any fever. Denies SI or HI. Denies additional acute medical complaints
Past History
Past History
ED Past Medical History: GERD, Hypothyroidism, Psychiatric (anxiety, Depression), Other ( Left eye melanoma, head injury, Migraines, Gout, back pain, Hemorrhoids, ) and Other (COVID-18 May 2021); Negative Asthma, HTN, Hypercholesterolemia or NIDDM
ED Past Surgical History: Orthopedic (Right elbow surgery), Tonsilectomy and Other (Left inguinal hernia repair, prior head injury requiring craniotomy, Left eye tumor removed)
Patient has exhibited threatening behavior?: No
PSI?: No
Social History
Tobacco: Former smoker (Quit March 2020)
Alcohol: Former (12 pack Beer and shots previously, On Vivitrol inj monthly starting Jun; relapsed 01/07/23)
Drug: None
Personal:
Living: with family
Employment: Employed (at a bar)
Family History
Family History: Other (Sister with thyroid disease); Negative Diabetes, Hypertension, Early CAD or CAD
Phy Exam
Physical Exam
Physical Exam:
General: Well-appearing, no clinical signs of dehydration, nontoxic and in no acute distress
HEENT: protecting airway
Neck: appears supple
CV: Normal heart rate, regular rhythm
Resp: No accessory muscle use, no increased work of breathing, lungs clear to auscultation bilaterally
Abd: Soft and non-distended, no tenderness to palpation
Extremities: No deformities, no swelling, no erythema
Neuro: alert, no focal neurologic deficit
: deferred
Rectal: deferred
Psych: Normal affect, slightly tremulous
Skin: Intact
Scores
Withdrawal Assessment of Alcohol
Withdrawal Assessment Completed?: Yes
Nausea and Vomiting: Mild nausea with no vomiting
Tactile Disturbances: None
Tremor: Moderate, with patient's arms extended
Auditory Disturbances: Not present
Paroxysmal Sweats: Beads of sweat obvious on forehead
Visual Disturbances: Not present
Anxiety: No anxiety, at ease
Headache, Fullness in Head: Not present
Agitation: Normal activity
Orientation and clouding of sensorium: Oriented and can do serial additions
Total CIWA Score: 9
Alcohol Withdrawal Medication Recommendation: Equal to MSAS Score 5-7. Lorazepam 1mg IV or PO NOW & re-assess q2hrs
Course
Orders/Labs/Results
Orders:
Orders
02/01/25 06:34
0.9% Sodium Chloride 1000 ml [Nss] 1,000 ml IV BOLUS
Lorazepam [Ativan] 2 mg IV NOW STA
02/01/25 06:39
Ondansetron Injectable [Zofran] 4 mg IV NOW STA
02/01/25 06:43
Alcohol Urgent
Complete Blood Count/With Diff Urgent
Comprehensive Metabolic Panel Urgent
02/01/25 08:20
Urinalysis Reflex To Culture Urgent
Date Specimen was Collected: 02/01/25
Time Specimen was Collected: 07:45
Urine Drug Abuse Screen Urgent
Date Specimen was Collected: 02/01/25
Time Specimen was Collected: 07:45
Abnormal Lab Results
02/01/25
06:43
RBC 4.27 L 10^6/uL
(4.70-6.10)
MCH 31.9 H pg
(27.0-31.0)
Abs Immat Gran (auto) 0.1 H 10^3/uL
(0-0.05)
Absolute Neuts (auto) 7.5 H 10^3/uL
(1.4-6.5)
Absolute Monos (auto) 0.7 H 10^3/uL
(0.1-0.6)
Lymphocytes % 18.9 L %
(20.5-51.1)
Chloride 108 H mmol/L
(98-107)
Carbon Dioxide 20 L mmol/L
(22-30)
02/01/25 06:43
02/01/25 06:43
Vital Signs
Initial and Last Documented VS:
Initial Vital Signs
Temp Pulse Resp BP Pulse Ox
98 F 94 26 152/94 93
02/01/25 05:46 02/01/25 05:46 02/01/25 05:46 02/01/25 05:46 02/01/25 05:46
Last Documented Vital Signs
Temp Pulse Resp BP Pulse Ox
98 F 88 17 130/89 94
02/01/25 05:46 02/01/25 08:45 02/01/25 08:45 02/01/25 08:16 02/01/25 08:45
MDM/Problems Addressed
MDM/Problems Addressed:
59-year-old male with history of alcohol abuse presenting for concern of alcohol withdrawal. Vital signs on arrival are significant for mild hypertension.
On exam patient is in no acute distress, slightly tremulous. Patient appears to be in mild alcohol withdrawal. He is requesting to go to [facility] for inpatient rehabilitation. Will discuss with [facility]. Will screen with laboratory analysis
and treat patient with IV fluids, Zofran, Ativan and reassess for improvement.
09:25 -labs are unremarkable. Patient sleeping comfortably on reassessment. Patient accepted to [facility]. Plan for discharge. Feel medically cleared for rehabilitation services.
*Critical Care Note
Total Time (30-74mins, 75-104mins- exclusive of procedures): Not Applicable
ED Attending Note
-
Portions of this chart may have been created with voice recognition software.� Occasional wrong word or��sound alike� substitutions may have occurred due to the inherent limitations of voice recognition software.
Discharge Plan
Departure
Prescriptions:
No Action
sertraline 50 mg Tablet
50 mg PO DAILY
thiamine HCl (vitamin B1) 100 mg Tablet
100 mg PO DAILY
Theragen Tablet
1 tab PO DAILY
acetaminophen [Tylenol Arthritis Pain] 650 mg Tablet Extended Release
1,300 mg PO [id number] PRN (Reason: mild pain)
Referrals:
Chema Green MD [Family Provider] -
Interventions
Interventions:
*Risk Screen - Suicide Last Done: 02/01/25 05:46
*General Assessment Last Done: 02/01/25 06:21
*Neglect/Abuse Screening Last Done: 02/01/25 05:46
*ED- Fall Risk Assessment Last Done: 02/01/25 08:00
*ED COVID-19 Vaccine History Last Done: 02/01/25 06:23
ED- Neurological Assessment Last Done: 02/01/25 08:00
ED-Psychological Assessment Last Done: 02/01/25 08:00
Discharge Date and Time
Print Language: TELUGU
[2025-02-01] MEDS: NSS 1000 IV (06:39)
[2025-02-01] MEDS: ATIVAN 2 MG IV (06:40)
[2025-02-01] MEDS: ZOFRAN 4 MG IV (06:45)
[2025-02-01 06:50] LABS: % Basophils 0.7 % (0-2); % Immature Granulocytes 0.5 % (0-0.5); % Lymphocytes 18.9 % (20.5-51.1); % Neutrophils 70.9 % (42.2-75.2); Absolute Basophils 0.1 10^3/uL (0-0.2); Absolute Eosinophils 0.2 10^3/uL (0-0.7); Absolute Immature Granulocytes 0.1 10^3/uL (0-0.05); Absolute Monocytes 0.7 10^3/uL (0.1-0.6); Absolute Neutrophils 7.5 10^3/uL (1.4-6.5); Hematocrit 39.6 % (39.0-52.0); Hemoglobin 13.6 g/dL (13.0-18.0); Mean Corp Hgb Conc. 34.3 g/dL (33.0-37.0); Mean Corpuscular Hgb 31.9 pg (27.0-31.0); Mean Corpuscular Volume 92.7 fL (80.0-94.0); Mean Platelet Volume 10.1 fL (7.4-10.4); Nucleated Red Blood Cells % 0.2 % (-); Platelet Count 203 10^3/uL (130-400); Red Blood Cell Count 4.27 10^6/uL (4.70-6.10); Red Cell Dist. Width 13.8 % (11.5-14.5); White Blood Cell Count 10.5 10^3/uL (4.8-10.8)
[2025-02-01 07:00] VITALS: BP 129/90
[2025-02-01 07:09] LABS: ALT (SGPT) 16 U/L (0-50); AST (SGOT) 19 U/L (17-59); Albumin 4.9 g/dl (3.5-5.0); Alkaline Phosphatase 54 U/L (38-126); Blood Urea Nitrogen 19 mg/dl (9-20); Calcium 9.5 mg/dl (8.4-10.2); Carbon Dioxide 20 mmol/L (22-30); Chloride 108 mmol/L (98-107); Estimated Creatinine Clearance 101 ml/min; Glucose 85 mg/dl (70-99); Potassium 4.5 mmol/L (3.5-5.1); Sodium 140 mmol/L (135-145); Total Bilirubin 0.6 mg/dl (0.2-1.3); Total Protein 7.3 g/dl (6.3-8.2); eGFR > 60.00
[2025-02-01 07:17] LABS: Alcohol None Detected
[2025-02-01 08:16] VITALS: BP 130/89
--- NOTE | 2025-02-01 08:25 | PHANOTE ---
med rec note- patient explained he suppose to be on allopurinol but no pharmacy fills also ecw show allopurinol 100mg daily stopped in 2016 and to start colchicine 0.6mg daily in 2022, no recently pharmacy fills for these two medication, recently
dher records show ER doctor gave him a small script for colchicine #7 11/2024
[2025-02-01 08:41] LABS: Urine Albumin Negative (Neg - Trace); Urine Bilirubin Negative (Negative); Urine Character Slightly Cloudy (Clear); Urine Color Yellow; Urine Glucose Negative (Negative); Urine Ketone Negative (Negative); Urine Leukocyte Negative (Negative); Urine Nitrite Negative (Negative); Urine Occult Blood Negative (Negative); Urine Specific Gravity 1.025 (<1.030); Urine Urobilinogen Negative (Neg - 1+)
[2025-02-01 09:00] VITALS: BP 129/85
[2025-02-01 09:08] LABS: Amphetamines Negative (Negative); Barbiturates Negative (Negative); Benzodiazepines Negative (Negative); Buprenorphine Negative (Negative); Cocaine Negative (Negative); Marijuana Negative (Negative); Methadone Negative (Negative); Methamphetamines Negative (Negative); Opiates Negative (Negative); Phencyclidine Negative (Negative); Tricyclic Antidepressants Negative (Negative)
== END 2025-02-01 11:06 ==
LOC: EMR 05:44
PROVIDERS: EMERGENCY PHYSICIAN Student in an Organized Health Care Education/Training Program; FAMILY PHYSICIAN Internal Medicine
DX: F10.229 Alcohol dependence with intoxication, unspecified (principal); E03.9 Hypothyroidism, unspecified; E11.9 Type 2 diabetes mellitus without complications; I10 Essential (primary) hypertension; Z82.49 Family history of ischemic heart disease and other diseases of the circulatory system; Z83.49 Family history of other endocrine, nutritional and metabolic diseases; Z85.840 Personal history of malignant neoplasm of eye; Z86.16 Personal history of COVID-19; Z87.19 Personal history of other diseases of the digestive system; Z87.891 Personal history of nicotine dependence
CPT/HCPCS: 99285; 96374; 96375; 80053; 80306; 81003; 82077; 85025

== ENCOUNTER 2025-03-03 21:59 | Emergency (ER) | payer OTHER, SELFPAY ==
[2025-03-03 22:01] VITALS: BP 145/97
[2025-03-04 00:24] VITALS: BMI 28.1
--- NOTE | 2025-03-04 00:32 | ED.GENMED ---
History of Present Illness
General
Chief Complaint: Musculo-Skeletal Complaint
Source: patient
Exam Limitations: none
Time Seen by Provider: 03/03/25 23:47
History of Present Illness
History of Present Illness:
See MDM
Past History
Past History
ED Past Medical History: GERD, Hypothyroidism, Psychiatric (anxiety, Depression), Other ( Left eye melanoma, head injury, Migraines, Gout, back pain, Hemorrhoids, ) and Other (COVID-18 May 2021); Negative Asthma, HTN, Hypercholesterolemia or NIDDM
ED Past Surgical History: Orthopedic (Right elbow surgery), Tonsilectomy and Other (Left inguinal hernia repair, prior head injury requiring craniotomy, Left eye tumor removed)
Patient has exhibited threatening behavior?: No
PSI?: No
Social History
Tobacco: Former smoker (Quit March 2020)
Alcohol: Former (12 pack Beer and shots previously, On Vivitrol inj monthly starting Jun; relapsed 01/07/23)
Drug: None
Personal:
Living: with family
Employment: Employed (at a bar)
Family History
Family History: Other (Sister with thyroid disease); Negative Diabetes, Hypertension, Early CAD or CAD
Phy Exam
Physical Exam
Physical Exam:
See MDM
Course
Orders/Labs/Results
Orders:
Orders
03/04/25 00:29
Oxycodone/Acetaminophen [Percocet 5/325] 1 tablet PO NOW STA
Prednisone [Deltasone] 50 mg PO NOW STA
Vital Signs
Initial and Last Documented VS:
Initial Vital Signs
Temp Pulse Resp BP Pulse Ox
98.5 F 94 16 145/97 98
03/03/25 22:01 03/03/25 22:01 03/03/25 22:01 03/03/25 22:01 03/03/25 22:01
Last Documented Vital Signs
Temp Pulse Resp BP Pulse Ox
98.5 F 94 16 145/97 98
03/03/25 22:01 03/03/25 22:01 03/03/25 22:01 03/03/25 22:01 03/03/25 22:01
MDM/Problems Addressed
Differential Diagnosis Includes:
HPI and MDM Narrative:
59-year-old male presenting with left knee pain and swelling. This has been ongoing for the past several days. Patient states he has a history of gout. He is confused why he has a gout flare. He has not drank alcohol in over a month. Upon
further questioning, he did have steak recently. We did discuss the possibility of this being food related. Regardless, patient states he wants an arthrocentesis. Patient understands the risk of obtaining arthrocentesis as this could seed
infection. He understands risks and consented for arthrocentesis
Physical exam
General: Well appearing and non-toxic
HEENT: protecting airway
Neck: appears supple
CV: No evidence of cyanosis
Resp: No accessory muscle use
Abd: Non-distended
Extremities: No deformities. Left knee effusion without erythema
Neuro: alert
Psych: Normal affect
Skin: Intact
Problems Addressed including Acute and Chronic Conditions affecting care:
1. Gout flare
Acuity: acute
Prognosis: stable
Details: Patient requesting arthrocentesis and steroids
Updates
As soon as the numbing needle touched his skin, patient started to scream. Based on his discomfort, it was shared decision making to not perform the arthrocentesis
Differential Diagnosis (but not limited to): Gout flare, knee contusion
Testing considered: Knee x-ray
Drug therapy (if applicable): OTC meds, please see d/c instruction regarding Rx drugs
Amount and/or Complexity of Data Reviewed
Clinical info obtained from: Patient
External data reviewed: N/A
Labs I independently reviewed (but not limited to): N/A
Radiology: N/A
Pulse Ox: not hypoxic
EKG independently reviewed: N/A
Steel Plate Caulker: N/A
Critical Care: N/A
Risk of Complication:
Social Determinants of health: Good social support
Discussed with other providers: N/A
Escalation of Care includes Admit/Obs: After being observed in the Emergency Department, pt stable for discharge.
Occasional wrong word or 'sound a like' substitutions may have occurred due to the inherent limitations of voice recognition software. Read the chart carefully and recognize, using context, where substitutions have occurred.
*Critical Care Note
Total Time (30-74mins, 75-104mins- exclusive of procedures): Not Applicable
ED Attending Note
-
Portions of this chart may have been created with voice recognition software.� Occasional wrong word or��sound alike� substitutions may have occurred due to the inherent limitations of voice recognition software.
Discharge Plan
Departure
Patient Disposition: Home (Routine Discharge)
Date of Disposition: 03/04/25
Time of Disposition: 00:52
Patient with high blood pressure during this ER visit?: Yes
Discharge Problem:
Gout
Instructions: Low-purine diet, Gout - ED discharge instructions, BLOOD PRESSURE
Prescriptions:
New
prednisone 10 mg tablet
See Rx Instructions .ROUTE .COMPLEX Qty: 45 0RF
Rx Instructions:
5 tabs day 1-3, 4 tabs day 4-6, 3 tabs day 7-9, 2 tabs day 10-12, 1 tab day 13-15
oxycodone 5 mg tablet
5 mg PO Q8H PRN (Reason: Pain) Qty: 14 0RF
No Action
sertraline 50 mg Tablet
50 mg PO DAILY
thiamine HCl (vitamin B1) 100 mg Tablet
100 mg PO DAILY
Theragen Tablet
1 tab PO DAILY
acetaminophen [Tylenol Arthritis Pain] 650 mg Tablet Extended Release
1,300 mg PO [id number] PRN (Reason: mild pain)
Referrals:
Horacio Brumfield MD [Family Provider, Internal Medicine]
Activity Restrictions/Additional Instructions:
Please return for any worsening symptoms.
You may return at any time if you have further concerns.
Please follow up with your doctor at the first available appointment, preferably this week.
Thank you for choosing [facility].
Interventions
Interventions:
*Risk Screen - Suicide Last Done: 03/03/25 22:01
*General Assessment Last Done: 03/04/25 00:24
*Neglect/Abuse Screening Last Done: 03/03/25 22:01
*ED- Fall Risk Assessment Last Done: 03/04/25 00:24
*ED COVID-19 Vaccine History Last Done: 03/04/25 00:24
ED-Musculoskeletal Assessment Last Done: 03/04/25 00:24
Discharge Date and Time
Print Language: PASHTO
[2025-03-04] MEDS: DELTASONE 50 MG PO (00:42)
[2025-03-04] MEDS: PERCOCET 5/325 1 TABLET PO (00:42)
== END 2025-03-04 01:22 | disposition home or self-care (01) ==
LOC: EMR 21:59
PROVIDERS: EMERGENCY PHYSICIAN Student in an Organized Health Care Education/Training Program; FAMILY PHYSICIAN Internal Medicine
DX: M10.9 Gout, unspecified (principal); K21.9 Gastro-esophageal reflux disease without esophagitis; E03.9 Hypothyroidism, unspecified; E11.9 Type 2 diabetes mellitus without complications; F41.8 Other specified anxiety disorders; Z82.49 Family history of ischemic heart disease and other diseases of the circulatory system; Z83.49 Family history of other endocrine, nutritional and metabolic diseases; Z85.840 Personal history of malignant neoplasm of eye; Z86.16 Personal history of COVID-19; Z87.19 Personal history of other diseases of the digestive system; Z87.891 Personal history of nicotine dependence
CPT/HCPCS: 99283

== ENCOUNTER 2025-05-08 03:51 | Inpatient (IN) | payer OTHER, SELFPAY ==
[2025-05-07 22:00] VITALS: BMI 28.2
[2025-05-07 22:01] VITALS: BP 156/105
[2025-05-07 22:30] VITALS: BP 149/97
--- NOTE | 2025-05-07 22:45 | ED.GENMED ---
History of Present Illness
General
Chief Complaint: Withdrawal Symptoms
Source: patient
Exam Limitations: none
Time Seen by Provider: 05/07/25 22:28
History of Present Illness
History of Present Illness:
59yoM with a history of ocular cancer and alcohol abuse presenting for evaluation of alcohol withdrawal. Patient was drinking about 6-8 beers/day plus a few shots for about a month. Last drink was about 24 hours ago. He is symptomatic with
tremors, anxiety, nausea, and vomiting. He states he has been unable to keep anything down and is having generalized abdominal pain and pain in his kidney area. He also reports bright red blood in stool, last episode was 2 days ago. No prior
history of withdrawal seizures. He was last following with the [facility] about 4-5 months ago.
Past History
Past History
ED Past Medical History: GERD, Hypothyroidism, Psychiatric (anxiety, Depression), Other ( Left eye melanoma, head injury, Migraines, Gout, back pain, Hemorrhoids, ) and Other (COVID-18 May 2021); Negative Asthma, HTN, Hypercholesterolemia or NIDDM
ED Past Surgical History: Orthopedic (Right elbow surgery), Tonsilectomy and Other (Left inguinal hernia repair, prior head injury requiring craniotomy, Left eye tumor removed)
Patient has exhibited threatening behavior?: No
PSI?: No
Social History
Tobacco: Former smoker (Quit March 2020)
Alcohol: Former (12 pack Beer and shots previously, On Vivitrol inj monthly starting Jun; relapsed 01/07/23)
Drug: None
Personal:
Living: with family
Employment: Employed (at a bar)
Family History
Family History: Other (Sister with thyroid disease); Negative Diabetes, Hypertension, Early CAD or CAD
Phy Exam
Physical Exam
Physical Exam:
Anxious, tremulous
General Physical Exam
General Presentation: mild distress
General Skin: warm and dry
General Habitus: normal
General Mental: alert
ENT Exam
ENT Exam: normocephalic
Cardiovascular Exam
Cardiovascular Exam: no edema, no murmur and tachycardia
Pulmonary Exam
Pulmonary Exam: lungs clear, no respiratory distress, no rales, no crackles, no rhonchi and no wheezing
Gastrointestinal Exam
Gastrointestinal Exam: soft, non distended and other (+Mild generalized tenderness. No rebound or guarding.)
Rectal Exam: other (Small amount of red tinged stool noted on rectal exam)
Neurological Exam
Neurological Exam: alert
Darell Coma Scale
Eye Opening: Spontaneous
Verbal Response: Oriented
Motor Response: Obeys Commands
GCS Total Score: 15
Skin Exam
Skin Exam: normal color and warm/dry
Psychiatric Exam
Psychiatric Exam: anxious
Course
Orders/Labs/Results
Orders:
Orders
05/07/25 22:43
Cardiac Monitoring- Treatment ONCE
0.9% Sodium Chloride 1000 ml [Nss] 1,000 ml IV BOLUS
Lorazepam [Ativan] 2 mg IV NOW STA
Ondansetron Injectable [Zofran] 4 mg IV NOW STA
05/07/25 22:44
Electrocardiogram (*1) Urgent
Reason for Study: Abdominal Pain
EKG- Treatment ONCE
05/07/25 22:46
Urinalysis Reflex To Culture Urgent
05/07/25 22:57
Alcohol Urgent
Complete Blood Count/With Diff Urgent
Comprehensive Metabolic Panel Urgent
Lactate Level [Lactic Acid] Urgent
Lipase Urgent
Magnesium Urgent
Troponin I Urgent
05/07/25 23:17
Protime/PTT Urgent
05/08/25 00:02
CT Abd/pelvis W Iv Cont Urgent
Reason For Exam: generalized abd pain, vomiting
Abnormal Lab Results
05/07/25
22:57
Abs Immat Gran (auto) 0.1 H 10^3/uL
(0-0.05)
Immature Gran % 1.0 H %
(0-0.5)
05/07/25 22:57
05/07/25 22:57
Vital Signs
Initial and Last Documented VS:
Initial Vital Signs
Temp Pulse Resp BP Pulse Ox
97.8 F 106 16 156/105 95
05/07/25 22:01 05/07/25 22:01 05/07/25 22:01 05/07/25 22:01 05/07/25 22:01
Last Documented Vital Signs
Temp Pulse Resp BP Pulse Ox
97.8 F 83 16 142/97 96
05/07/25 22:01 05/08/25 02:00 05/08/25 02:00 05/08/25 02:00 05/08/25 02:00
MDM/Problems Addressed
Differential Diagnosis Includes:
59yoM here with alcohol withdrawal. Last drink 24 hours ago. Symptomatic with n/v, anxiety, and tremors. Also c/o abd pain and rectal bleeding. He is mildly hypertensive and tachycardic. He is anxious and tremulous on exam. Stool is red-tinged on
rectal exam. Differential diagnosis includes but is not limited to: Alcohol withdrawal, GI bleed, dehydration
Initial ED plan: Abdominal labs, lactate, ETOH level, troponin/EKG, and CT abdomen. 2 mg IV Ativan, Zofran, and fluid bolus for symptoms.
*Pulse Oximetry
SaO2: 95
Oxygen Mode of Delivery: Room air
Patient hypoxic: no (95%)
*EKG
Interpreted by ED Provider?: Yes
EKG Intrepretation Date: 05/07/25
Heart Rate: 96
Rate: normal
Rhythm: sinus
[place]: normal axis
Interval: normal interval
QRS Pattern: normal QRS
Ischemia: no ischemia
*Critical Care Note
Total Time (30-74mins, 75-104mins- exclusive of procedures): Not Applicable
Update Note
Update Note:
Labs overall unremarkable including normal hemoglobin and electrolytes. Alcohol level undetectable. CT negative for acute findings. Will admit for further management.
ED Attending Note
-
Portions of this chart may have been created with voice recognition software.� Occasional wrong word or��sound alike� substitutions may have occurred due to the inherent limitations of voice recognition software.
Discharge Plan
Departure
Patient Disposition: Admit
Date of Disposition: 05/08/25
Time of Disposition: 02:00
Presentation/result/management discussed w/ accepting MD/DO: Hospitalist
Discharge Problem:
Alcohol withdrawal, Rectal bleeding
Prescriptions:
No Action
sertraline 50 mg Tablet
50 mg PO DAILY
thiamine HCl (vitamin B1) 100 mg Tablet
100 mg PO DAILY
Theragen Tablet
1 tab PO DAILY
Referrals:
Horacio Brumfield MD [Family Provider, Internal Medicine]
Interventions
Interventions:
*Risk Screen - Suicide Last Done: 05/07/25 22:03
*Neglect/Abuse Screening Last Done: 05/07/25 22:03
ED- Neurological Assessment Last Done: 05/07/25 22:42
ED-Psychological Assessment Last Done: 05/07/25 22:42
Discharge Date and Time
Print Language: FRENCH
[2025-05-07] MEDS: ZOFRAN 4 MG IV (22:53)
[2025-05-07] MEDS: NSS 1000 IV (22:54)
[2025-05-07 23:00] VITALS: BP 135/88
[2025-05-07] MEDS: ATIVAN 2 MG IV (23:03)
[2025-05-07 23:06] LABS: Hematocrit 42.6 % (39.0-52.0); Hemoglobin 14.9 g/dL (13.0-18.0); Mean Corp Hgb Conc. 35.0 g/dL (33.0-37.0); Mean Corpuscular Volume 87.5 fL (80.0-94.0); Nucleated Red Blood Cells % 0 % (-); Platelet Count 230 10^3/uL (130-400); Red Cell Dist. Width 13.5 % (11.5-14.5)
[2025-05-07 23:25] LABS: ALT (SGPT) 19 U/L (0-50); AST (SGOT) 23 U/L (17-59); Albumin 4.9 g/dl (3.5-5.0); Alkaline Phosphatase 49 U/L (38-126); Blood Urea Nitrogen 20 mg/dl (9-20); Calcium 9.8 mg/dl (8.4-10.2); Carbon Dioxide 22 mmol/L (22-30); Chloride 104 mmol/L (98-107); Glucose 92 mg/dl (70-99); Magnesium 1.9 mg/dl (1.6-2.3); Potassium 4.6 mmol/L (3.5-5.1); Sodium 135 mmol/L (135-145); Total Protein 7.9 g/dl (6.3-8.2); eGFR > 60.00
[2025-05-07 23:28] LABS: Troponin I < 0.012 ng/ml
[2025-05-07 23:31] LABS: Lipase 142 U/L (23-300)
[2025-05-07 23:35] LABS: APTT 27.0 Sec (23.4-35.0); INR 0.97; PT 13.2 Sec (11.4-14.6)
[2025-05-08] VITALS (10 sets, daily range): BP systolic 130–144; BP diastolic 84–97; BMI 27.2
--- NOTE | 2025-05-08 03:45 | HPS.HSE ---
Family Physician
-
Family Physician: Horacio Brumfield MD
Chief Complaint
-
Abd pain, N/V, rectal bleeding
History of Present Illness
Patient is a 59y M with PMH significant for anxiety / depression and alcohol use disorder who presents to ED complaining of flank pain, abdominal pain, N/V, tremulousness and rectal bleeding. Patient states that he had maintained sobriety for a
long period - but relapsed about 3-4 weeks ago. He states that the has been drinking about 12 beers / day in the past three weeks. His last drink was evening. Patient states that he developed flank pain, lower abdominal pain and N/V
which has persisted since that time. He notes multiple episodes of non-bloody emesis. He also reports intermittent episodes of bright red blood per rectum. No rectal burning / pain.
Today he felt very nauseated and tremulous and presented to the ED for further evaluation.
Medical History
Past Medical History
Past Medical History: Reports Other
Additional Past Medical History:
Head Injury
Anxiety
Melanoma - Eye
Gout
Alcohol Use Disorder
Past Surgical History: Reports Other
Additional Past Surgical History:
Craniotomy
Right Elbow Surgery
Herniorrhaphy x 3
Eye Surgery / Melanoma Excision
Social History
Tobacco: Smoker (Current some day smoker.)
Alcohol: Chronic Alcoholic (Sober recently until relapse 3 weeks ago. 12 beers per day since. Last drink 05/06/25.)
Drug: None (No history of IVDA)
Family History
Family History: Not pertinent
Allergies / Home Medications
Allergies reflects when Allergies were last updated in [employer].
Home Medications with original date entered in [employer]
Allergy/Medication List:
Allergies
Allergy/AdvReac Type Severity Reaction Status Date / Time
No Known Allergies Allergy Verified 03/03/25 22:00
Home Medications
sertraline 50 mg tablet 50 mg PO DAILY 02/01/25
therapeutic multivitamin 1 tab PO DAILY 02/01/25
thiamine HCl (vitamin B1) 100 mg tablet 100 mg PO DAILY 02/01/25
Review of Systems
-
History Source: Patient
Constitutional: Reports Fatigue; Denies Fever or Chills
EENT: Denies Sore Throat
Respiratory: Denies Cough or Trouble Breathing
Cardiac: Denies Chest Pain or Palpitations
Abdomen/GI: Reports Abdominal Pain, Nausea, Vomiting and Bloody Stools; Denies Diarrhea or Anorexia
: Reports Flank Pain; Denies Dysuria or Frequency
Musculoskeletal: Denies Joint Pain or Edema
Neurological: Reports Other (shaky / tremulous); Denies Dizzy or Headache
Physical Exam
Vital Signs
Vital Signs
Temp Pulse Resp BP Pulse Ox
97.8 F 83 17 140/88 98
05/07/25 22:01 05/08/25 03:00 05/08/25 03:00 05/08/25 03:00 05/08/25 03:00
Physical Exam
General: Other (59y M in no acute distress.)
HEENT: Moist mucous membranes
Respiratory: Clear; No Wheezes, Rales or Rhonchi
Cardiac: S1/S2 and Regular Rhythm; No Murmur
GI: Soft, Non Tender, Non Distended and Normal Bowel Sounds
Musculoskeletal: No Clubbing, No Cyanosis and No Edema
Neuro: AO x 3
Laboratory Results
-
05/07/25 22:57
05/07/25 22:57
Laboratory Results
PT 13.2 Sec (11.4-14.6) 05/07/25 23:17
INR 0.97 05/07/25 23:17
APTT 27.0 Sec (23.4-35.0) 05/07/25 23:17
Lactic Acid 1.2 mmol/L (0.7-2.0) 05/07/25 22:57
Total Bilirubin 0.6 mg/dl (0.2-1.3) 05/07/25 22:57
AST 23 U/L (17-59) 05/07/25 22:57
ALT 19 U/L (0-50) 05/07/25 22:57
Alkaline Phosphatase 49 U/L (38-126) 05/07/25 22:57
Troponin I < 0.012 ng/ml 05/07/25 22:57
Lipase 142 U/L (23-300) 05/07/25 22:57
Impression/Plan
-
A/P: Patient is a 59y M with PMH significant for alcohol use disorder who presents to ED complaining of N/V, tremulousness and BRBPR.
Alcohol Withdrawal Syndrome
Chronic Alcohol Use Disorder
- Admit for further evaluation and treatment.
- Daily EtOH intake to excess for the past 3-4 weeks.
- Last drink 05/06/25.
- Follow MSAS and treat as needed based on symptoms.
- Thiamine, folate, MVI, etc.
- Follow for improvement in symptoms.
Rectal Bleeding
- Very likely due to hemorrhoids, fissure, etc.
- Hgb stable. Hemodynamically stable.
- Follow for any significant changes.
- GI evaluation.
Anxiety / Depression
- Continue sertraline.
DVT Prophylaxis: SCDs
Code Status: Full
--- NOTE | 2025-05-08 05:00 | PTCARENOTE ---
Patient arrived to 3W 325 from ED via stretcher, ambulated from stretcher to bed IND with standby assist for safety. Alert and oriented. C/o pain to left flank and left lower back 03/09 -- PRN Toradol provided, see MAR. VSS. Initiated on telemetry
monitor #6 -- NSR with HR 80s. IVFs initiated per MD orders. Maintained on 2LNC overnight for sleeping, as patient states he has some issues with sleep apnea. 1 PPD smoker, no interest in nicotine patch or gum at this time. MSAS score 2 for tremors
to UEs/hands B/L. Call monge is in reach, will ring for assist. Will monitor patient.
[2025-05-08] MEDS: NSS 1000 IV (05:33)
[2025-05-08] MEDS: TORADOL 10 MG IV ×2 (05:40→13:42)
[2025-05-08 08:04] LABS: Hematocrit 39.7 % (39.0-52.0); Hemoglobin 13.2 g/dL (13.0-18.0); Mean Corp Hgb Conc. 33.2 g/dL (33.0-37.0); Mean Corpuscular Volume 90.8 fL (80.0-94.0); Platelet Count 180 10^3/uL (130-400); Red Cell Dist. Width 13.6 % (11.5-14.5)
[2025-05-08 08:25] LABS: ALT (SGPT) 15 U/L (0-50); AST (SGOT) 17 U/L (17-59); Albumin 4.1 g/dl (3.5-5.0); Alkaline Phosphatase 45 U/L (38-126); Blood Urea Nitrogen 18 mg/dl (9-20); Calcium 9.1 mg/dl (8.4-10.2); Carbon Dioxide 25 mmol/L (22-30); Chloride 106 mmol/L (98-107); Estimated Creatinine Clearance 101 ml/min; Glucose 92 mg/dl (70-99); Magnesium 2.1 mg/dl (1.6-2.3); Potassium 4.9 mmol/L (3.5-5.1); Sodium 136 mmol/L (135-145); Total Protein 6.6 g/dl (6.3-8.2); eGFR > 60.00
[2025-05-08] MEDS: ZOLOFT 50 MG PO (08:25)
[2025-05-08] MEDS: FOLVITE 1 MG PO (08:26)
[2025-05-08] MEDS: THIAMINE INJECTION 200 MG IV ×2 (08:26→19:51)
[2025-05-08] MEDS: PROTONIX 40 MG PO (08:26)
--- NOTE | 2025-05-08 08:32 | W.PN.HOSP.TC ---
Today's Communication/Plan
-
see plan
Assessment / Plan
Assessment / Plan
A/P: Patient is a 59y M with PMH significant for alcohol use disorder who presents to ED complaining of N/V, tremulousness and BRBPR.
CT A/P
Mildl haziness of small bowel mesentery, question mild enteritis. No bowel obstruction. Appendix normal. 2 hypodense lesions right hepatic lobe also visualized on prior; no e/o ureteral calculus or hydronephrosis; no acute abnormality of
gallbladder or pancreas
Alcohol Withdrawal Syndrome
Chronic Alcohol Use Disorder
- Daily EtOH intake to excess for the past 3-4 weeks.
- Last drink 05/06/25.
- MSAS, PRN Ativan
- Thiamine, folate, MVI, etc
- NS @ 100 then OK to stop when back complete
- tolerating cleras, advance to LRD
- patient is a member of AA, has a sponsor who knows he is here
Rectal Bleeding
- Likely due to hemorrhoids, fissure, etc.
- Hgb stable.
- will cancel inpatient GI consult and refer as outpatient for colonoscopy (never had one)
Anxiety / Depression
- Continue sertraline.
DVT Prophylaxis: SCDs
Code Status: Full
Anticipated Discharge: 24 - 48 hours
Subjective/Interval History
-
Date of Service: May 08, 2025
feeling better than yesterday
still has some aching in back
he had a nl BM since seeing blood in stool 2 days ago
no vomiting overnight
Objective Data
-
Labs:
Laboratory Results
05/07/25 05/07/25 05/08/25
22:57 23:17 07:07
WBC 6.2 6.2
Hgb 14.9 13.2
Hct 42.6 39.7
Plt Count 230 180 D
PT Cancelled 13.2
INR Cancelled 0.97
APTT Cancelled 27.0
Sodium 135 136
Potassium 4.6 4.9
Chloride 104 106
Carbon Dioxide 22 25
BUN 20 18
Creatinine 0.8 0.8
Glucose 92 92
Calcium 9.8 9.1
Total Bilirubin 0.6 0.6
AST 23 17
ALT 19 15
Alkaline Phosphatase 49 45
Vital Signs:
Vital Signs
Temp Pulse Resp BP Pulse Ox
97.8 F 75 18 130/85 96
05/08/25 07:00 05/08/25 07:00 05/08/25 07:00 05/08/25 07:00 05/08/25 07:00
I&O
05/07/25 05/08/25 05/09/25
06:59 06:59 06:59
Intake Total 820 / 820
Balance 820 / 820
Review of Systems
-
History Source: Patient
All other systems: Reviewed and negative
Physical Exam
-
General: Well Developed and No Apparent Distress
HEENT: Normocephalic, Atraumatic and Moist Mucous Membranes
Respiratory: Clear to Auscultation
Cardiac: Regular Rhythm and S1/S2; Negative Murmur, Rub or Gallop
GI: Soft, Nontender, Nondistended and Normal Bowel Sounds; Negative Organomegaly
Rectal: Deferred by Provider
Musculoskeletal: No Clubbing, No Cyanosis and No Edema
Skin: Negative Rash
Neuro: Nonfocal/Grossly Intact
Psych: Calm
Data Reviewed
-
Diagnostic Radiology: Report Reviewed by me
Labs: Labs Reviewed by me
[2025-05-08 08:48] LABS: Urine Character Clear (Clear)
[2025-05-08] MEDS: NSS (PRESERVATIVE FREE) 10 ML IV (09:54)
[2025-05-08] MEDS: PROTONIX IV 40 MG IV (09:54)
--- NOTE | 2025-05-08 16:05 | CM ---
Initial assessment completed with pt at bedside.
Pt is a 59yr old admitted with Alcohol Withdrawal
At baseline, pt lives alone in a 1 level condo and is indep with ADLs and mobility.
CM Consult for Sub Abuse, though pt is in AA and feels that is enough support. Pt claims his sponsor is very involved and supportive.
PCP; Horacio Brumfield
Pharm; [facility]
PLAN; Home with no identified needs.
[2025-05-08] MEDS: ATIVAN 1 MG PO (19:53)
[2025-05-09 03:00] VITALS: BP 143/95
[2025-05-09 05:46] LABS: Hematocrit 38.1 % (39.0-52.0); Hemoglobin 13.1 g/dL (13.0-18.0); Mean Corp Hgb Conc. 34.4 g/dL (33.0-37.0); Mean Corpuscular Volume 90.3 fL (80.0-94.0); Platelet Count 163 10^3/uL (130-400); Red Cell Dist. Width 13.2 % (11.5-14.5)
[2025-05-09 06:00] VITALS: BMI 27.1
[2025-05-09 06:07] LABS: Blood Urea Nitrogen 15 mg/dl (9-20); Calcium 8.7 mg/dl (8.4-10.2); Carbon Dioxide 26 mmol/L (22-30); Chloride 103 mmol/L (98-107); Estimated Creatinine Clearance 89 ml/min; Glucose 100 mg/dl (70-99); Magnesium 2.1 mg/dl (1.6-2.3); Potassium 4.7 mmol/L (3.5-5.1); Sodium 134 mmol/L (135-145); eGFR > 60.00
[2025-05-09 07:00] VITALS: BP 151/92
[2025-05-09] MEDS: ZOLOFT 50 MG PO (07:13)
[2025-05-09] MEDS: PROTONIX IV 40 MG IV (07:13)
[2025-05-09] MEDS: FOLVITE 1 MG PO (07:13)
[2025-05-09] MEDS: THIAMINE INJECTION 200 MG IV (07:13)
[2025-05-09] MEDS: NSS (PRESERVATIVE FREE) 10 ML IV (07:14)
--- NOTE | 2025-05-09 08:52 | W.DS.TRANS ---
DC Summary - [employer]
-
Discharge Instructions:
Discharge Diagnosis/Procedures alcohol withdrawal, rectal bleeding possibly
hemorrhoids
Diet Regular
Activity As tolerated
Driving Restrictions As prior to admission
Bathing Restrictions None
Instructions:
Stand-Alone Forms:
Changes to Home Medications: No
Discharge Medications:
DC Medications w/original date entered in [employer]
sertraline 50 mg tablet 50 mg PO DAILY Mental Health/Anxiety 02/01/25
therapeutic multivitamin 1 tab PO DAILY Supplement 02/01/25
thiamine HCl (vitamin B1) 100 mg tablet 100 mg PO DAILY Supplement 02/01/25
Home Medication Changes
Pending Results: No
--- NOTE | 2025-05-09 09:10 | W.PN.HOSP.TC ---
Today's Communication/Plan
-
OK for DC today
Assessment / Plan
Assessment / Plan
A/P: Patient is a 59y M with PMH significant for alcohol use disorder who presents to ED complaining of N/V, tremulousness and BRBPR.
CT A/P
Mildl haziness of small bowel mesentery, question mild enteritis. No bowel obstruction. Appendix normal. 2 hypodense lesions right hepatic lobe also visualized on prior; no e/o ureteral calculus or hydronephrosis; no acute abnormality of
gallbladder or pancreas
Alcohol Withdrawal Syndrome
Chronic Alcohol Use Disorder
- Daily EtOH intake to excess for the past 3-4 weeks.
- Last drink 05/06/25.
- MSAS, PRN Ativan
- Thiamine, folate, MVI, etc
- tolerating diet; and has not required PRN Ativan today; states dose last night was more in setting of anxiety attack. He plans to meet with sponsor today
- patient is a member of AA, h
Rectal Bleeding
- Likely due to hemorrhoids, fissure, etc.
- Hgb stable.
patient knows to follow up as outpatient with GI
Anxiety / Depression
- Continue sertraline.
DVT Prophylaxis: SCDs
Code Status: Full
Anticipated Discharge: Today
Subjective/Interval History
-
Date of Service: May 09, 2025
feeling well today 'I feel great.' He is eager for discharge
states ativan last night was in setting of anxiety from not sleeping well
Objective Data
-
Labs:
Laboratory Results
05/09/25
04:56
WBC 5.9
Hgb 13.1
Hct 38.1 L
Plt Count 163
Sodium 134 L
Potassium 4.7
Chloride 103
Carbon Dioxide 26
BUN 15
Creatinine 0.9
Glucose 100 H
Calcium 8.7
Vital Signs:
Vital Signs
Temp Pulse Resp BP Pulse Ox
97.7 F 64 18 151/92 95
05/09/25 07:00 05/09/25 07:00 05/09/25 07:00 05/09/25 07:00 05/09/25 07:00
I&O
05/08/25 05/09/25 05/10/25
06:59 06:59 06:59
Intake Total 820 / 820 1919
Balance 820 / 820 1919
Review of Systems
-
History Source: Patient
All other systems: Reviewed and negative
Physical Exam
-
General: Well Developed and No Apparent Distress
HEENT: Normocephalic, Atraumatic and Moist Mucous Membranes
Respiratory: Clear to Auscultation
Cardiac: Regular Rhythm and S1/S2; Negative Murmur, Rub or Gallop
GI: Soft, Nontender, Nondistended and Normal Bowel Sounds; Negative Organomegaly
Rectal: Deferred by Provider
Musculoskeletal: No Clubbing, No Cyanosis and No Edema
Skin: Negative Rash
Neuro: Nonfocal/Grossly Intact
Psych: Calm
Data Reviewed
-
Diagnostic Radiology: Report Reviewed by me
Labs: Labs Reviewed by me
--- NOTE | 2025-05-09 13:52 | W.DCSUMMARY ---
Discharge Summary
Discharge Data
Date of Admission: 05/08/25
Date of Discharge: 05/09/25
-
Pending Results: No
Hospital Course
Discharging Physician : Dr. Destiny Cain
Disposition : Home
Primary care physician : Dr. Horacio Brumfield
Principal Discharge diagnosis : Alcohol withdrawal
Hospital Course :
Patient is a 59y M with PMH significant for alcohol use disorder who presents to ED complaining of N/V, tremulousness. He also reported BRBPR 2 days prior.
Triage vitals significant for pulse 106, BP 156/105. Labs unremarkable, Hg 14.9.
Patient was admitted for treatment of alcohol withdrawal. He as given IVF, PRN Ativan and symptoms improved. His diet was advanced and he is tolerating a LRD prior to discharge. Patient states he is feeling well and eager for discharge.
Regarding BRBPR, this resolved and Hg is stable. Patient has never had a colonoscopy. He is referred to GI as outpatient.
Patient states he is going to meet with his sponsor after discharge and has the resources he needs to stay sober.
Patient's CT on admit showed 2 hepatic lobe lesions stable from prior, consider MRI with and without contrast as outpatient.
Time spent on discharge was 35 minutes.
Important imaging findings :
Abdomen/Pelvis CT 05/08/25
IMPRESSION:
1. No significant acute abnormality identified in the abdomen or pelvis, as described above.
2. Indeterminate right hepatic lobe lesions. Consider outpatient workup with dedicated MRI abdomen without and with gadolinium contrast.
Procedure findings :
Discharge Plan
-
Patient Disposition: Home (Routine Discharge)
Discharge Diagnosis/Procedures: alcohol withdrawal, rectal bleeding possibly hemorrhoids
Diet: Regular
Activity: As tolerated
Driving Restrictions: As prior to admission
Bathing Restrictions: None
Referrals:
Horacio Brumfield MD [Family Provider, Internal Medicine] - in less than 1 week
Lizzie Rogers MD [Active, Gastroenterology] - in one to two months
Referral Note: schedule colonoscopy for screening; hx blood in stool
Prescriptions:
Continued
sertraline 50 mg Tablet
50 mg PO DAILY
thiamine HCl (vitamin B1) 100 mg Tablet
100 mg PO DAILY
therapeutic multivitamin Tablet
1 tab PO DAILY
Discharge Orders:
Discharge Patient (As Directed); Ordered 05/09/25
Ordered By: Destiny Cain
Discharge Date and Time
Discharge Date/Time: 05/09/25 10:02
Print Language: PASHTO
== END 2025-05-09 10:02 | disposition home or self-care (01) | DRG 897 ==
LOC: 3 WEST ACU 03:51
PROVIDERS: Physician Assistant; ADMITTING PHYSICIAN Hospitalist; ATTENDING PHYSICIAN Student in an Organized Health Care Education/Training Program; EMERGENCY PHYSICIAN Emergency Medicine; FAMILY PHYSICIAN Internal Medicine
DX: F10.239 Alcohol dependence with withdrawal, unspecified (principal); K92.1 Melena; F17.200 Nicotine dependence, unspecified, uncomplicated; E03.9 Hypothyroidism, unspecified; E11.9 Type 2 diabetes mellitus without complications; E78.00 Pure hypercholesterolemia, unspecified; F32.A Depression, unspecified; I10 Essential (primary) hypertension; M10.9 Gout, unspecified; G43.909 Migraine, unspecified, not intractable, without status migrainosus; K21.9 Gastro-esophageal reflux disease without esophagitis; M54.9 Dorsalgia, unspecified; F41.9 Anxiety disorder, unspecified; K76.9 Liver disease, unspecified; K64.9 Unspecified hemorrhoids; Z60.2 Problems related to living alone; Z85.840 Personal history of malignant neoplasm of eye; Z86.16 Personal history of COVID-19; Z87.828 Personal history of other (healed) physical injury and trauma; Z82.49 Family history of ischemic heart disease and other diseases of the circulatory system
CPT/HCPCS: 74177; 80048; 80053; 80076; 80306; 80307; 81003; 82077; 83605; 83690; 83735; 84100; 84484; 85025; 85027; 85610; 85730; 93005; 96361; 96374; 96375; 99285; Q9967

== ENCOUNTER 2025-05-31 06:31 | Emergency (ER) | payer OTHER, SELFPAY ==
[2025-05-31 06:32] VITALS: BP 158/100
[2025-05-31 07:02] VITALS: BP 144/92
[2025-05-31] MEDS: LIDOCAINE 4% PATCH 1 PATCH TOPICAL (07:25)
[2025-05-31] MEDS: VALIUM 5 MG PO (07:25)
[2025-05-31] MEDS: ZOFRAN 4 MG IV (07:33)
[2025-05-31 07:36] LABS: Hematocrit 41.0 % (39.0-52.0); Hemoglobin 13.9 g/dL (13.0-18.0); Mean Corp Hgb Conc. 33.9 g/dL (33.0-37.0); Mean Corpuscular Volume 88.2 fL (80.0-94.0); Nucleated Red Blood Cells % 0 % (-); Platelet Count 233 10^3/uL (130-400); Red Cell Dist. Width 13.3 % (11.5-14.5)
[2025-05-31 07:48] LABS: ALT (SGPT) 19 U/L (0-50); AST (SGOT) 20 U/L (17-59); Albumin 4.6 g/dl (3.5-5.0); Alkaline Phosphatase 57 U/L (38-126); Blood Urea Nitrogen 12 mg/dl (9-20); Calcium 9.6 mg/dl (8.4-10.2); Carbon Dioxide 24 mmol/L (22-30); Chloride 106 mmol/L (98-107); Glucose 93 mg/dl (70-99); Magnesium 1.8 mg/dl (1.6-2.3); Potassium 4.9 mmol/L (3.5-5.1); Sodium 136 mmol/L (135-145); Total Protein 7.2 g/dl (6.3-8.2); eGFR > 60.00
--- NOTE | 2025-05-31 07:54 | ED.GENMED ---
History of Present Illness
General
Chief Complaint: Numbness
Source: patient
Time Seen by Provider: 05/31/25 07:05
History of Present Illness
History of Present Illness:
59-year-old male with past medical history of alcohol abuse, recently admitted here for alcohol withdrawal, presenting back to the emergency department for 2 separate concerns including feeling that he is withdrawing from alcohol after he last drank
yesterday afternoon. Patient's second concern is that he has been dealing with chronic neck pain along the right side of the neck extending into the scapular region but now with pain and numbness in his entirety of the right arm and stating he
still able to range of motion his right upper extremity but that he has a constant paresthesia sensation. He had previously been treated by a chiropractor twice a week which she said helped with symptoms but he has not seen the chiropractor
recently. Patient denies any trauma to the affected area, no fevers or infectious symptoms, did not take anything for the pain. Triage note states bilateral arm numbness however patient states the symptoms are isolated to the right arm. Patient
did not take anything for his symptoms prior to arrival. As far as his alcohol withdrawal goes to the states he does feel mildly anxious and nauseous presently. He declines intervention with [facility] stating he knows the pathway and what he needs to
do, has a sponsor that he can talk to and has gone the inpatient treatment route before and he does not feel that this would work for him at present time.
Past History
Past History
ED Past Medical History: GERD, Hypothyroidism, Psychiatric (anxiety, Depression), Other ( Left eye melanoma, head injury, Migraines, Gout, back pain, Hemorrhoids, ) and Other (COVID-18 May 2021); Negative Asthma, HTN, Hypercholesterolemia or NIDDM
ED Past Surgical History: Orthopedic (Right elbow surgery), Tonsilectomy and Other (Left inguinal hernia repair, prior head injury requiring craniotomy, Left eye tumor removed)
Patient has exhibited threatening behavior?: No
PSI?: No
Social History
Tobacco: Former smoker (Quit March 2020)
Alcohol: Chronic alcoholic (12 pack Beer and shots previously, On Vivitrol inj monthly starting Jun; relapsed 01/07/23)
Drug: None
Personal:
Living: alone
Employment: Employed (at a bar)
Family History
Family History: Other (Sister with thyroid disease); Negative Diabetes, Hypertension, Early CAD or CAD
Review of Systems
Review of Systems
All Other Systems: ROS reviewed and negative except as documented in HPI and ROS
Phy Exam
Physical Exam
Physical Exam:
GENERAL: Alert , in no apparent distress
HEAD: Normocephalic atraumatic
EYE: Clear conjunctiva
NECK: Supple, tenderness within the right posterior occipital region extending into the trapezius musculature and down towards the medial border of the scapula. Full range of motion with right lateral rotation slightly exacerbating the symptoms
ENT: o/p clr, mmm.
CARDIAC: Regular rate and rhythm .
LUNGS: Clear breath sounds bilaterally, no acute respiratory distress, no wheezes/rales/rhonchi
NEUROLOGICAL: Alert and oriented, no focal neuro deficits, sensation grossly intact to light touch throughout, 5 out of 5 strength upper extremities bilateral
SKIN: Warm and dry, skin intact.
MUSCULOSKELETAL: No edema, well perfused. Full range of motion of the bilateral upper extremities
PSYCH: Normal and appropriate interaction.
Scores
Heart Failure Risk
Heart Failure Risk Score: Not Applicable
Heart Score for Chest Pain Patients
STEMI patient?: Not applicable
Withdrawal Assessment of Alcohol
Withdrawal Assessment Completed?: Yes
Nausea and Vomiting: Mild nausea with no vomiting
Tactile Disturbances: Very mild itching, pins and needles, burning or numbness
Tremor: No tremor
Auditory Disturbances: Not present
Paroxysmal Sweats: No sweat visible
Visual Disturbances: Not present
Anxiety: No anxiety, at ease
Headache, Fullness in Head: Not present
Agitation: Normal activity
Orientation and clouding of sensorium: Oriented and can do serial additions
Total CIWA Score: 2
Alcohol Withdrawal Medication Recommendation: Equal to MSAS Score 0-4. Monitor & re-assess q2hrs, NO MEDICATION NEEDED
Course
Orders/Labs/Results
Orders:
Orders
05/31/25 07:16
Diazepam [Valium] 5 mg PO NOW STA
Lidocaine [Lidocaine 4% Patch] 1 patch TOPICAL NOW STA
Apply Lidocaine patch(s) to:: right upper back/neck
CR Cervical Spine 4 Or 5 Vw Urgent
Comment:
Reason For Exam: right sided radiculopathy
05/31/25 07:22
Alcohol Urgent
Complete Blood Count/With Diff Urgent
Comprehensive Metabolic Panel Urgent
Magnesium Urgent
05/31/25 07:29
Ondansetron Injectable [Zofran] 4 mg IV NOW STA
Abnormal Lab Results
05/31/25
07:22
RBC 4.65 L 10^6/uL
(4.70-6.10)
Abs Immat Gran (auto) 0.1 H 10^3/uL
(0-0.05)
Immature Gran % 1.3 H %
(0-0.5)
Monocytes % 9.7 H %
(1.7-9.3)
05/31/25 07:22
05/31/25 07:22
Vital Signs
Initial and Last Documented VS:
Initial Vital Signs
Temp Pulse Resp BP Pulse Ox
97.8 F 84 20 158/100 96
05/31/25 06:32 05/31/25 06:32 05/31/25 06:32 05/31/25 06:32 05/31/25 06:32
Last Documented Vital Signs
Temp Pulse Resp BP Pulse Ox
97.8 F 79 16 148/95 98
05/31/25 06:32 05/31/25 08:56 05/31/25 08:56 05/31/25 08:56 05/31/25 08:56
MDM/Problems Addressed
Differential Diagnosis Includes:
Alcohol abuse with mild alcohol withdrawal
Cervical spine radiculopathy
Spinal stenosis
Patient denying any trauma however given alcohol history, trauma still being considered although less likely
No current signs to suggest infectious etiology/osteomyelitis/discitis or epidural abscess
Electrolyte imbalance
MDM/Problems Addressed:
59-year-old male presenting to the ER for 2 separate concerns noting concern for alcohol withdrawal as well as radicular symptoms to the right upper extremity with neck pain. Patient denying any trauma. No focal neurologic deficits during my
exam. Will obtain x-ray imaging here. Discussed with patient he may need further outpatient treatment and MRI to further assess. Current alcohol withdrawal symptoms are very mild. Will treat with Valium as this will also likely give patient some
relief from his radicular symptoms. Zofran for nausea. Patient recently admitted at this facility for alcohol withdrawal. Disposition remains pending
Chronic conditions affecting care: Psychiatric illness (Alcohol abuse)
*Radiology
Radiology exam reviewed: preliminary read by ED provider (Degenerative changes without evidence for fracture)
*Pulse Oximetry
SaO2: 96
Oxygen Mode of Delivery: Room air
Patient hypoxic: no
*Critical Care Note
Total Time (30-74mins, 75-104mins- exclusive of procedures): Not Applicable
Data Reviewed
Review of Other/Old Records Reveals: Labs, Records and Discharge Summary
Source: patient and records
Patient Management
Escalation/DeEscalation of care consider admission/obs:
Patient's workup unremarkable. He does report some relief with Valium. Ultimately patient wishes to be discharged home. Continues to decline any intervention with [facility]. Will send prescription for Ativan and Medrol Dosepak tonics home with the
patient. Protonix ordered to protect stomach given his daily alcohol use combined with the potential adverse effect from the Medrol Dosepak. Ativan ordered for combination of both muscle relaxation and to help with any further withdrawal symptoms
ED Attending Note
-
Portions of this chart may have been created with voice recognition software.� Occasional wrong word or��sound alike� substitutions may have occurred due to the inherent limitations of voice recognition software.
Discharge Plan
Departure
Patient Disposition: Home (Routine Discharge)
Date of Disposition: 05/31/25
Time of Disposition: 08:51
Patient with high blood pressure during this ER visit?: Yes
Discharge Problem:
Cervical radiculopathy, Alcohol abuse
Instructions: Peripheral Neuropathy (DC), Alcohol Use Disorder (DC)
Prescriptions:
New
methylprednisolone [Medrol (Raffy)] 4 mg tablets,dose pack
4 mg PO DIRECTED Qty: 21 0RF
omeprazole 40 mg capsule,delayed release(DR/EC)
40 mg PO DAILY Qty: 30 0RF
lorazepam [Ativan] 1 mg tablet
1 mg PO BID PRN (Reason: alcohol withdrawal) Qty: 10 0RF
No Action
sertraline 50 mg Tablet
50 mg PO DAILY
thiamine HCl (vitamin B1) 100 mg Tablet
100 mg PO DAILY
therapeutic multivitamin Tablet
1 tab PO DAILY
Referrals:
Horacio Brumfield MD [Family Provider, Internal Medicine]
Interventions
Interventions:
*Risk Screen - Suicide Last Done: 05/31/25 06:32
*General Assessment Last Done: 05/31/25 06:32
*Neglect/Abuse Screening Last Done: 05/31/25 06:32
*ED- Fall Risk Assessment Last Done: 05/31/25 06:51
*ED COVID-19 Vaccine History Last Done: 05/31/25 06:32
*Nursing Disposition Last Done: 05/31/25 08:56
ED- Neurological Assessment Last Done: 05/31/25 07:08
ED-Psychological Assessment Last Done: 05/31/25 06:52
Discharge Date and Time
Discharge Date/Time: 05/31/25 09:04
Print Language: OCCITAN
[2025-05-31 08:56] VITALS: BP 148/95
== END 2025-05-31 09:04 | disposition home or self-care (01) ==
LOC: EMR 06:31
PROVIDERS: Physician Assistant Medical; EMERGENCY PHYSICIAN Emergency Medicine; FAMILY PHYSICIAN Internal Medicine
DX: M54.12 Radiculopathy, cervical region (principal); F10.10 Alcohol abuse, uncomplicated; E03.9 Hypothyroidism, unspecified; Z87.891 Personal history of nicotine dependence
CPT/HCPCS: 96374; 99284; 72050; 80053; 82077; 83735; 85025

== ENCOUNTER 2025-07-26 10:49 | Emergency (ER) | payer OTHER, SELFPAY ==
[2025-07-26 10:56] VITALS: BP 149/103
[2025-07-26 11:10] VITALS: BP 158/95
[2025-07-26 11:28] LABS: Hematocrit 44.3 % (39.0-52.0); Hemoglobin 14.9 g/dL (13.0-18.0); Mean Corp Hgb Conc. 33.6 g/dL (33.0-37.0); Mean Corpuscular Volume 92.9 fL (80.0-94.0); Nucleated Red Blood Cells % 0 % (-); Platelet Count 190 10^3/uL (130-400); Red Cell Dist. Width 12.9 % (11.5-14.5)
[2025-07-26 11:46] LABS: ALT (SGPT) 20 U/L (0-50); AST (SGOT) 19 U/L (17-59); Albumin 4.9 g/dl (3.5-5.0); Alkaline Phosphatase 53 U/L (38-126); Blood Urea Nitrogen 22 mg/dl (9-20); Calcium 9.8 mg/dl (8.4-10.2); Carbon Dioxide 23 mmol/L (22-30); Chloride 104 mmol/L (98-107); Glucose 96 mg/dl (70-99); Potassium 4.2 mmol/L (3.5-5.1); Sodium 132 mmol/L (135-145); Total Protein 7.9 g/dl (6.3-8.2); eGFR > 60.00
--- NOTE | 2025-07-26 11:54 | ED.GENMED ---
History of Present Illness
General
Chief Complaint: Chest Pain
Source: patient
Time Seen by Provider: 07/26/25 11:45
History of Present Illness
History of Present Illness:
59-year-old male presents emergency room complaining of nausea, generalized weakness, dizziness, shortness of breath. Symptoms began shortly after waking up this morning. Patient endorses drinking heavily last night. He had at least 8 shots and 8
beers. He was home by 5 PM and went to bed. When he immediately woke up he did not feel too bad but the symptoms started a bit after getting up and out of bed. Symptoms are somewhat better now. He was concerned that he might be developing a
heart problem. Patient has not traveled recently. No pain with deep inspiration. Patient denies drinking on a daily basis. He states he only drinks once a week when he is out with his friends on Sundays.
Past History
Past History
ED Past Medical History: GERD, Hypothyroidism, Psychiatric (anxiety, Depression), Other ( Left eye melanoma, head injury, Migraines, Gout, back pain, Hemorrhoids, ) and Other (COVID-18 May 2021); Negative Asthma, HTN, Hypercholesterolemia or NIDDM
ED Past Surgical History: Orthopedic (Right elbow surgery), Tonsilectomy and Other (Left inguinal hernia repair, prior head injury requiring craniotomy, Left eye tumor removed)
Patient has exhibited threatening behavior?: No
PSI?: No
Social History
Tobacco: Former smoker (Quit March 2020)
Alcohol: Chronic alcoholic (12 pack Beer and shots previously, On Vivitrol inj monthly starting Jun; relapsed 01/07/23)
Drug: None
Personal:
Living: alone
Employment: Employed (at a bar)
Family History
Family History: Other (Sister with thyroid disease); Negative Diabetes, Hypertension, Early CAD or CAD
Phy Exam
Physical Exam
Physical Exam:
General: Awake, Alert, Oriented X3. No acute distress.
Vitals: unremarkable
Head: Atraumatic
Eyes: Pupils equal, EOMI
Throat: Airway intact, no exudates
Neck: Trachea midline
Lungs: Clear and equal b/l
Heart: Regular rate, no murmurs
Abd: Soft, Nontender, No pulsatile mass
Neuro: Nonfocal
Skin: Warm, dry, no rash
Extremities: pulses equal b/l, no edema
Scores
Heart Score for Chest Pain Patients
STEMI patient?: No
History: Slightly or Non-Suspicious
ECG: Nonspecific Repolarization
Age: >45 - <65 years
Risk Factors: 1 or 2 Risk Factors
Troponin: </= Normal Limit
Heart Score for Chest Pain Patients: 3
Heart Score Risk: 2.5% MACE over next 6 weeks
Course
Orders/Labs/Results
Orders:
Orders
07/26/25 10:51
Electrocardiogram (*1) Urgent
Reason for Study: Chest Pain
EKG- Treatment ONCE
07/26/25 11:17
CBC/With Diff [Complete Blood Count/With Diff] Urgent
CMP [Comprehensive Metabolic Panel] Urgent
Troponin I Urgent
07/26/25 11:53
0.9% Sodium Chloride 1000 ml [Nss] 1,000 ml IV BOLUS
Abnormal Lab Results
07/26/25
11:17
MCH 31.2 H pg
(27.0-31.0)
Abs Immat Gran (auto) 0.1 H 10^3/uL
(0-0.05)
Immature Gran % 0.7 H %
(0-0.5)
Sodium 132 L mmol/L
(135-145)
BUN 22 H mg/dl
(9-20)
07/26/25 11:17
07/26/25 11:17
Vital Signs
Initial and Last Documented VS:
Initial Vital Signs
Temp Pulse Resp BP Pulse Ox
97.7 F 77 16 149/103 95
07/26/25 10:56 07/26/25 10:56 07/26/25 10:56 07/26/25 10:56 07/26/25 10:56
Last Documented Vital Signs
Temp Pulse Resp BP Pulse Ox
97.7 F 73 16 142/97 95
07/26/25 10:56 07/26/25 13:00 07/26/25 13:00 07/26/25 13:00 07/26/25 13:00
MDM/Problems Addressed
Differential Diagnosis Includes:
ACS, dehydration, electrode abnormality
MDM/Problems Addressed:
Patient presents feeling unwell this morning. He endorses drinking a significant amount last night. Suspect symptoms are secondary to this. Troponin is normal and symptoms have been present for greater than 3 hours prior to arrival. EKG shows no
acute ischemic changes. After treatment patient feeling significantly better. Stable for discharge home.
*Pulse Oximetry
SaO2: 96
Oxygen Mode of Delivery: Room air
Patient hypoxic: no
*EKG
Interpreted by ED Provider?: Yes
Heart Rate: 80
Rate: normal
Rhythm: sinus
Ischemia: non-specific ST changes
*Dowel Pin Man Interpretation
Rate: normal
Interpretation: normal
Rhythm: sinus
*Critical Care Note
Total Time (30-74mins, 75-104mins- exclusive of procedures): Not Applicable
ED Attending Note
-
Portions of this chart may have been created with voice recognition software.� Occasional wrong word or��sound alike� substitutions may have occurred due to the inherent limitations of voice recognition software.
Discharge Plan
Departure
Prescriptions:
No Action
sertraline 50 mg Tablet
50 mg PO DAILY
thiamine HCl (vitamin B1) 100 mg Tablet
100 mg PO DAILY
therapeutic multivitamin Tablet
1 tab PO DAILY
methylprednisolone [Medrol (Raffy)] 4 mg tablets,dose pack
4 mg PO DIRECTED Qty: 21 0RF
omeprazole 40 mg capsule,delayed release(DR/EC)
40 mg PO DAILY Qty: 30 0RF
lorazepam [Ativan] 1 mg tablet
1 mg PO BID PRN (Reason: alcohol withdrawal) Qty: 10 0RF
Referrals:
Chema Green MD [Family Provider, Internal Medicine]
Interventions
Interventions:
*Risk Screen - Suicide Last Done: 07/26/25 10:57
*General Assessment Last Done: 07/26/25 11:10
*Neglect/Abuse Screening Last Done: 07/26/25 10:57
*ED COVID-19 Vaccine History Last Done: 07/26/25 11:10
*ED Influenza Vaccine History Last Done: 07/26/25 11:10
ED- Cardiac Assessment Last Done: 07/26/25 11:10
Discharge Date and Time
Print Language: MALAYSIAN
[2025-07-26] MEDS: NSS 1000 IV (11:57)
[2025-07-26 11:58] LABS: Troponin I < 0.012 ng/ml
[2025-07-26 12:00] VITALS: BP 141/98
[2025-07-26 13:00] VITALS: BP 142/97
--- NOTE | 2025-07-26 13:43 | ED.GENMED ---
History of Present Illness
General
Chief Complaint: Chest Pain
Source: patient
Time Seen by Provider: 07/26/25 11:45
Past History
Past History
ED Past Medical History: GERD, Hypothyroidism, Psychiatric (anxiety, Depression), Other ( Left eye melanoma, head injury, Migraines, Gout, back pain, Hemorrhoids, ) and Other (COVID-18 May 2021); Negative Asthma, HTN, Hypercholesterolemia or NIDDM
ED Past Surgical History: Orthopedic (Right elbow surgery), Tonsilectomy and Other (Left inguinal hernia repair, prior head injury requiring craniotomy, Left eye tumor removed)
Patient has exhibited threatening behavior?: No
PSI?: No
Social History
Tobacco: Former smoker (Quit March 2020)
Alcohol: Chronic alcoholic (12 pack Beer and shots previously, On Vivitrol inj monthly starting Jun; relapsed 01/07/23)
Drug: None
Personal:
Living: alone
Employment: Employed (at a bar)
Family History
Family History: Other (Sister with thyroid disease); Negative Diabetes, Hypertension, Early CAD or CAD
Course
Orders/Labs/Results
Orders:
Orders
07/26/25 10:51
Electrocardiogram (*1) Urgent
Reason for Study: Chest Pain
EKG- Treatment ONCE
07/26/25 11:17
CBC/With Diff [Complete Blood Count/With Diff] Urgent
CMP [Comprehensive Metabolic Panel] Urgent
Troponin I Urgent
07/26/25 11:53
0.9% Sodium Chloride 1000 ml [Nss] 1,000 ml IV BOLUS
Abnormal Lab Results
07/26/25
11:17
MCH 31.2 H pg
(27.0-31.0)
Abs Immat Gran (auto) 0.1 H 10^3/uL
(0-0.05)
Immature Gran % 0.7 H %
(0-0.5)
Sodium 132 L mmol/L
(135-145)
BUN 22 H mg/dl
(9-20)
07/26/25 11:17
07/26/25 11:17
Vital Signs
Initial and Last Documented VS:
Initial Vital Signs
Temp Pulse Resp BP Pulse Ox
97.7 F 77 16 149/103 95
07/26/25 10:56 07/26/25 10:56 07/26/25 10:56 07/26/25 10:56 07/26/25 10:56
Last Documented Vital Signs
Temp Pulse Resp BP Pulse Ox
97.7 F 73 16 142/97 95
07/26/25 10:56 07/26/25 13:00 07/26/25 13:00 07/26/25 13:00 07/26/25 13:00
*Pulse Oximetry
SaO2: 95
Oxygen Mode of Delivery: Room air
ED Attending Note
-
Portions of this chart may have been created with voice recognition software.� Occasional wrong word or��sound alike� substitutions may have occurred due to the inherent limitations of voice recognition software.
Discharge Plan
Departure
Patient Disposition: Home (Routine Discharge)
Date of Disposition: 07/26/25
Time of Disposition: 13:43
Patient with high blood pressure during this ER visit?: Yes
Condition: Good
Discharge Problem:
Dizziness, Nausea & vomiting
Prescriptions:
No Action
sertraline 50 mg Tablet
50 mg PO DAILY
thiamine HCl (vitamin B1) 100 mg Tablet
100 mg PO DAILY
therapeutic multivitamin Tablet
1 tab PO DAILY
methylprednisolone [Medrol (Raffy)] 4 mg tablets,dose pack
4 mg PO DIRECTED Qty: 21 0RF
omeprazole 40 mg capsule,delayed release(DR/EC)
40 mg PO DAILY Qty: 30 0RF
lorazepam [Ativan] 1 mg tablet
1 mg PO BID PRN (Reason: alcohol withdrawal) Qty: 10 0RF
Referrals:
Chema Green MD [Family Provider, Internal Medicine]
Interventions
Interventions:
*Risk Screen - Suicide Last Done: 07/26/25 10:57
*General Assessment Last Done: 07/26/25 11:10
*Neglect/Abuse Screening Last Done: 07/26/25 10:57
*ED COVID-19 Vaccine History Last Done: 07/26/25 11:10
*ED Influenza Vaccine History Last Done: 07/26/25 11:10
*Nursing Disposition Last Done: 07/26/25 13:41
ED- Cardiac Assessment Last Done: 07/26/25 11:10
Discharge Date and Time
Discharge Date/Time: 07/26/25 13:46
Print Language: ALBANIAN
== END 2025-07-26 13:46 | disposition home or self-care (01) ==
LOC: EMR 10:49
PROVIDERS: EMERGENCY PHYSICIAN Emergency Medicine; FAMILY PHYSICIAN Internal Medicine
DX: R07.89 Other chest pain (principal); R11.0 Nausea; R53.1 Weakness; R42 Dizziness and giddiness; R06.02 Shortness of breath; K21.9 Gastro-esophageal reflux disease without esophagitis; E03.9 Hypothyroidism, unspecified; E11.9 Type 2 diabetes mellitus without complications; F41.8 Other specified anxiety disorders; M10.9 Gout, unspecified; Z82.49 Family history of ischemic heart disease and other diseases of the circulatory system; Z83.49 Family history of other endocrine, nutritional and metabolic diseases; Z85.840 Personal history of malignant neoplasm of eye; Z86.16 Personal history of COVID-19; Z87.19 Personal history of other diseases of the digestive system; Z87.891 Personal history of nicotine dependence
CPT/HCPCS: 99283; 96360; 80053; 84484; 85025; 93005

== ENCOUNTER 2025-07-29 12:14 | Emergency (ER) | payer OTHER, SELFPAY ==
[2025-07-29 12:16] VITALS: BP 140/91
[2025-07-29 12:51] VITALS: BP 134/91
[2025-07-29 12:59] LABS: Hematocrit 44.3 % (39.0-52.0); Hemoglobin 15.1 g/dL (13.0-18.0); Mean Corp Hgb Conc. 34.1 g/dL (33.0-37.0); Mean Corpuscular Volume 91.0 fL (80.0-94.0); Nucleated Red Blood Cells % 0 % (-); Platelet Count 216 10^3/uL (130-400); Red Cell Dist. Width 12.7 % (11.5-14.5)
[2025-07-29 13:00] VITALS: BP 129/98
[2025-07-29 13:20] LABS: ALT (SGPT) 20 U/L (0-50); AST (SGOT) 19 U/L (17-59); Albumin 5.0 g/dl (3.5-5.0); Alkaline Phosphatase 60 U/L (38-126); Blood Urea Nitrogen 20 mg/dl (9-20); Calcium 9.9 mg/dl (8.4-10.2); Carbon Dioxide 21 mmol/L (22-30); Chloride 100 mmol/L (98-107); Glucose 128 mg/dl (70-99); Lipase 73 U/L (23-300); Potassium 4.1 mmol/L (3.5-5.1); Sodium 133 mmol/L (135-145); Total Protein 8.0 g/dl (6.3-8.2); eGFR > 60.00
[2025-07-29 13:22] LABS: Troponin I < 0.012 ng/ml
--- NOTE | 2025-07-29 13:49 | ED.GENMED ---
History of Present Illness
General
Chief Complaint: Chest Pain
Source: patient
Exam Limitations: none
Time Seen by Provider: 07/29/25 12:50
Nursing documentation reviewed up to this point in time: agreed with
History of Present Illness
History of Present Illness:
59-year-old male with history as noted presents to the ER for evaluation of chest pain. Of note patient was seen in this ER 07/26/2025 for chest pain after a day of heavy drinking and had negative workup at that time. He says that since then he
has continued to have pain in his chest�he describes left-sided sharp pain worse with breathing, worse with lying flat. He describes some associated shortness of breath. He has had some mild left upper quadrant abdominal pain as well. No nausea
or vomiting. No swelling or pain in the legs. No cough or fever recently. He did drink heavily prior to onset of symptoms on Saturday he says because of the football games. He denies history of alcohol abuse but has multiple visits for alcohol use
issues including withdrawal.
Past History
Past History
ED Past Medical History: GERD, Hypothyroidism, Psychiatric (anxiety, Depression), Other ( Left eye melanoma, head injury, Migraines, Gout, back pain, Hemorrhoids, ) and Other (COVID-18 May 2021); Negative Asthma, HTN, Hypercholesterolemia or NIDDM
ED Past Surgical History: Orthopedic (Right elbow surgery), Tonsilectomy and Other (Left inguinal hernia repair, prior head injury requiring craniotomy, Left eye tumor removed)
Patient has exhibited threatening behavior?: No
PSI?: No
Social History
Tobacco: Former smoker (Quit March 2020)
Alcohol: Chronic alcoholic (12 pack Beer and shots previously, On Vivitrol inj monthly starting Jun; relapsed 01/07/23)
Drug: None
Personal:
Living: alone
Employment: Employed (at a bar)
Family History
Family History: Other (Sister with thyroid disease); Negative Diabetes, Hypertension, Early CAD or CAD
Review of Systems
Review of Systems
All Other Systems: ROS reviewed and negative except as documented in HPI and ROS
Constitutional: Denies fever or chills
Respiratory: Reports trouble breathing; Denies cough
Cardiac: Reports chest pain; Denies palpitations
ABD/GI: Reports abdominal pain; Denies nausea or vomiting
: Denies flank pain
Musculoskeletal: Denies neck pain
Neurological: Denies headache
Phy Exam
Physical Exam
Physical Exam:
General: Awake, alert, oriented x3; anxious appearing but in no acute distress
Head: Normocephalic, atraumatic
Eyes: Conjunctiva normal, sclera anicteric
Throat: Airway intact, handling secretions
Neck: Trachea midline, supple without meningismus
Lungs: Clear to auscultation bilaterally, no wheezing, rales, rhonchi
Heart: Regular rate and rhythm, no murmurs, gallops, or rubs appreciated
Abd: Soft, non distended, nontender
Neuro: Grossly intact
Skin: No rash in the area of concern
Extremities: No edema in extremities, no calf tenderness, equal pulses in all extremities
Scores
Heart Failure Risk
Heart Failure Risk Score: Not Applicable
Heart Score for Chest Pain Patients
STEMI patient?: No
History: Slightly or Non-Suspicious
ECG: Normal
Age: >45 - <65 years
Risk Factors: 1 or 2 Risk Factors
Troponin: </= Normal Limit
Heart Score for Chest Pain Patients: 2
Heart Score Risk: 2.5% MACE over next 6 weeks
Withdrawal Assessment of Alcohol
Withdrawal Assessment Completed?: Not applicable
Course
Orders/Labs/Results
Orders:
Orders
07/29/25 12:15
ECG [Electrocardiogram (*1)] Urgent
Reason for Study: Chest Pain
EKG- Treatment ONCE
07/29/25 12:31
Complete Blood Count/With Diff Urgent
Comprehensive Metabolic Panel Urgent
Lipase Urgent
Troponin I Urgent
07/29/25 13:15
CT Chest PE Study Urgent
Comment:
Reason For Exam: sharp chest pain, SOB, dizziness
07/29/25 13:49
Mag Hydrox/Al Hydrox/Simeth [Maalox] 30 ml Phenobarb/Hyoscy/Atropine/Scop [] 10 ml Viscous Lidocaine 2% [Xylocaine Viscous Cup] 10 ml PO NOW
07/29/25 13:54
Mag Hydrox/Al Hydrox/Simeth [Maalox] 30 ml .ROUTE .STK-MED ONE
Phenobarb/Hyoscy/Atropine/Scop [] 10 ml .ROUTE .STK-MED ONE
Viscous Lidocaine 2% [Xylocaine Viscous Cup] 15 ml .ROUTE .STK-MED ONE
07/29/25 15:30
Troponin I Urgent
Abnormal Lab Results
07/29/25
12:31
Sodium 133 L mmol/L
(135-145)
Carbon Dioxide 21 L mmol/L
(22-30)
Glucose 128 H mg/dl
(70-99)
07/29/25 12:31
07/29/25 12:31
Vital Signs
Initial and Last Documented VS:
Initial Vital Signs
Temp Pulse Resp BP Pulse Ox
36.4 C 101 22 140/91 95
07/29/25 12:16 07/29/25 12:16 07/29/25 12:16 07/29/25 12:16 07/29/25 12:16
Last Documented Vital Signs
Temp Pulse Resp BP Pulse Ox
36.4 C 80 11 134/93 95
07/29/25 12:16 07/29/25 14:00 07/29/25 14:00 07/29/25 14:00 07/29/25 14:00
MDM/Problems Addressed
Differential Diagnosis Includes:
GERD/gastritis, pancreatitis, ACS, PE, pneumothorax, pneumonia, rib fracture, costochondritis
MDM/Problems Addressed:
59-year-old male presents to the ER for the second time complaining of sharp left-sided chest pain started after a day of heavy drinking. He does report some associated shortness of breath. He was hypertensive and tachycardic in triage but vital
signs have normalized by my assessment. Physical exam is as above. EKG unchanged from prior. Plan to check labs including a CBC and a CMP, lipase. Check troponin. Check CT chest to rule out PE or other acute abnormalities. Monitor on
telemetry. Overall suspect this is more likely GERD related pain�will treat with a green grabber.
Initial labs reviewed: CBC and CMP no clinically significant abnormalities. Notably normal LFTs. Lipase is normal. Initial troponin undetectable. Will trend for completeness. Await CT chest. Clinical status stable.
CT chest shows no PE or other acute abnormalities. Awaiting results of repeat troponin. Currently stable.
Chronic conditions affecting care:
Alcohol use
*Radiology
Radiology exam reviewed: radiology read reviewed
*Pulse Oximetry
SaO2: 95
Oxygen Mode of Delivery: Room air
Patient hypoxic: no (95%)
*EKG
Interpreted by ED Provider?: Yes
Comparison EKG: no changes
Heart Rate: 87
Rate: normal
Rhythm: sinus
[place]: normal axis
Interval: normal interval
QRS Pattern: normal QRS
Ischemia: other (Anterior septal infarct unchanged from prior)
*Critical Care Note
Total Time (30-74mins, 75-104mins- exclusive of procedures): Not Applicable
Data Reviewed
Review of Other/Old Records Reveals: Labs and Records
Source: patient and records
ED Attending Note
-
Portions of this chart may have been created with voice recognition software.� Occasional wrong word or��sound alike� substitutions may have occurred due to the inherent limitations of voice recognition software.
Discharge Plan
Departure
Prescriptions:
No Action
sertraline 50 mg Tablet
50 mg PO DAILY
thiamine HCl (vitamin B1) 100 mg Tablet
100 mg PO DAILY
therapeutic multivitamin Tablet
1 tab PO DAILY
methylprednisolone [Medrol (Raffy)] 4 mg tablets,dose pack
4 mg PO DIRECTED Qty: 21 0RF
omeprazole 40 mg capsule,delayed release(DR/EC)
40 mg PO DAILY Qty: 30 0RF
lorazepam [Ativan] 1 mg tablet
1 mg PO BID PRN (Reason: alcohol withdrawal) Qty: 10 0RF
Interventions
Interventions:
*Risk Screen - Suicide Last Done: 07/29/25 12:16
*General Assessment Last Done: 07/29/25 12:16
*Neglect/Abuse Screening Last Done: 07/29/25 12:16
*ED COVID-19 Vaccine History Last Done: 07/29/25 12:16
*ED Influenza Vaccine History Last Done: 07/29/25 12:16
ED- Cardiac Assessment Last Done: 07/29/25 13:25
Discharge Date and Time
Print Language: TELUGU
[2025-07-29] MEDS: MAALOX 50 PO (13:57)
[2025-07-29 14:00] VITALS: BP 134/93
[2025-07-29 15:55] LABS: Troponin I < 0.012 ng/ml
[2025-07-29 16:00] VITALS: BP 132/77
== END 2025-07-29 16:26 | disposition home or self-care (01) ==
LOC: EMR 12:14
PROVIDERS: Student in an Organized Health Care Education/Training Program; EMERGENCY PHYSICIAN Emergency Medicine; FAMILY PHYSICIAN Internal Medicine
DX: R07.89 Other chest pain (principal); F10.10 Alcohol abuse, uncomplicated; Z87.891 Personal history of nicotine dependence
CPT/HCPCS: 99285; 71275; 80053; 83690; 84484; 85025; 93005; Q9967

== ENCOUNTER 2025-08-09 10:06 | Emergency (ER) | payer OTHER, SELFPAY ==
[2025-08-09 10:22] VITALS: BP 165/110
--- NOTE | 2025-08-09 11:12 | ED.GENMED ---
History of Present Illness
General
Chief Complaint: Musculo-Skeletal Complaint
Time Seen by Provider: 08/09/25 11:07
History of Present Illness
History of Present Illness:
59-year-old male with history of alcohol abuse and hypothyroidism presents to the emergency department for evaluation of right sided head and neck pain ongoing for the past week. States he has had this in the past and it typically resolves within a
few days however symptoms are persisting. Has not taken any medications for pain control. Denies any acute fall or traumatic injury. No upper extremity paresthesias or weakness. No associated chest pain or dyspnea. Went to a chiropractor but
this did not provide any benefit, denies any sudden worsening after chiropractic treatment.
Past History
Past History
ED Past Medical History: GERD, Hypothyroidism, Psychiatric (anxiety, Depression), Other ( Left eye melanoma, head injury, Migraines, Gout, back pain, Hemorrhoids, ) and Other (COVID-18 May 2021); Negative Asthma, HTN, Hypercholesterolemia or NIDDM
ED Past Surgical History: Orthopedic (Right elbow surgery), Tonsilectomy and Other (Left inguinal hernia repair, prior head injury requiring craniotomy, Left eye tumor removed)
Patient has exhibited threatening behavior?: No
PSI?: No
Social History
Tobacco: Former smoker (Quit March 2020)
Alcohol: Chronic alcoholic (12 pack Beer and shots previously, On Vivitrol inj monthly starting Jun; relapsed 01/07/23)
Drug: None
Personal:
Living: alone
Employment: Employed (at a bar)
Family History
Family History: Other (Sister with thyroid disease); Negative Diabetes, Hypertension, Early CAD or CAD
Review of Systems
Review of Systems
Allergies reviewed?: Yes
All Other Systems: ROS reviewed and negative except as documented in HPI and ROS
Phy Exam
Physical Exam
Physical Exam:
GEN: Well appearing, NAD, WDWN
HEENT: Oral mucosa moist, no scleral icterus, no nasal congestion
Cardiac: Regular rate
Lung: No respiratory distress, no tachypnea
MSK: No gross deformity or injuries, no midline cervical spine tenderness. C-spine range of motion limited in all sagastume secondary to pain
Skin: Good color, no pallor or jaundice, no rashes
Neuro: AO x3; CN II-XII grossly intact. BUE strength 5/5 in all sagastume, sensation intact and symmetric. BLE strength 5/5 in all sagastume, sensation intact and symmetric
Psych: Calm, cooperative
Course
Orders/Labs/Results
Orders:
Orders
08/09/25 11:11
Acetaminophen [Tylenol] 1,000 mg PO NOW STA
Cyclobenzaprine HCl [Flexeril] 10 mg PO NOW STA
Ketorolac [Toradol] 30 mg IM NOW STA
Vital Signs
Initial and Last Documented VS:
Initial Vital Signs
Temp Pulse Resp BP Pulse Ox
97.7 F 96 16 165/110 98
08/09/25 10:22 08/09/25 10:22 08/09/25 10:22 08/09/25 10:22 08/09/25 10:22
Last Documented Vital Signs
Temp Pulse Resp BP Pulse Ox
97.7 F 78 19 161/105 97
08/09/25 10:22 08/09/25 12:31 08/09/25 12:31 08/09/25 12:31 08/09/25 12:31
MDM/Problems Addressed
MDM/Problems Addressed:
Suspect musculoskeletal etiology, pt dramatically improved with supportive meds. He has no neurologic deficits in the extremities worrisome for dissection, and no antecedent trauma. Given that symptoms have been gradually progressing x 1 week, doubt
there will be benefit to plain films. Discussed supportive care
*Pulse Oximetry
SaO2: 98
Oxygen Mode of Delivery: Room air
Patient hypoxic: no
*Critical Care Note
Total Time (30-74mins, 75-104mins- exclusive of procedures): Not Applicable
ED Attending Note
-
Portions of this chart may have been created with voice recognition software.� Occasional wrong word or��sound alike� substitutions may have occurred due to the inherent limitations of voice recognition software.
Discharge Plan
Departure
Patient Disposition: Home (Routine Discharge)
Date of Disposition: 08/09/25
Time of Disposition: 12:28
Patient with high blood pressure during this ER visit?: No
Discharge Problem:
Cervical paraspinal muscle spasm
Instructions: Torticollis (DC)
Prescriptions:
New
methylprednisolone [Medrol (Raffy)] 4 mg tablets,dose pack
See Rx Instructions .ROUTE .COMPLEX Qty: 21 0RF
Rx Instructions:
orally per package directions
methocarbamol 750 mg tablet
750 - 1,500 mg PO Q8H PRN (Reason: muscle spasm) Qty: 20 0RF
No Action
sertraline 50 mg Tablet
50 mg PO DAILY
thiamine HCl (vitamin B1) 100 mg Tablet
100 mg PO DAILY
therapeutic multivitamin Tablet
1 tab PO DAILY
methylprednisolone [Medrol (Raffy)] 4 mg tablets,dose pack
4 mg PO DIRECTED Qty: 21 0RF
omeprazole 40 mg capsule,delayed release(DR/EC)
40 mg PO DAILY Qty: 30 0RF
lorazepam [Ativan] 1 mg tablet
1 mg PO BID PRN (Reason: alcohol withdrawal) Qty: 10 0RF
sucralfate [Carafate] 1 gram tablet
1 g PO ACHS Qty: 30 0RF
pantoprazole [Protonix] 40 mg tablet,delayed release (DR/EC)
40 mg PO DAILY Qty: 30 0RF
Referrals:
UNKNOWN - PT NOT,INTERVIEWE [Family Provider]
Interventions
Interventions:
*Risk Screen - Suicide Last Done: 08/09/25 10:22
*General Assessment Last Done: 08/09/25 10:22
*Neglect/Abuse Screening Last Done: 08/09/25 10:22
*Nursing Disposition Last Done: 08/09/25 12:38
ED-Musculoskeletal Assessment Last Done: 08/09/25 11:24
Discharge Date and Time
Discharge Date/Time: 08/09/25 12:38
Print Language: [place]
[2025-08-09] MEDS: FLEXERIL 10 MG PO (11:21)
[2025-08-09] MEDS: TYLENOL 1000 MG PO (11:21)
[2025-08-09] MEDS: TORADOL 30 MG IM (11:21)
[2025-08-09 12:31] VITALS: BP 161/105
== END 2025-08-09 12:38 | disposition home or self-care (01) ==
LOC: EMR 10:06
PROVIDERS: EMERGENCY PHYSICIAN Emergency Medicine
DX: M62.838 Other muscle spasm (principal); F10.10 Alcohol abuse, uncomplicated; K21.9 Gastro-esophageal reflux disease without esophagitis; E03.9 Hypothyroidism, unspecified; E11.9 Type 2 diabetes mellitus without complications; I10 Essential (primary) hypertension; Z82.49 Family history of ischemic heart disease and other diseases of the circulatory system; Z83.49 Family history of other endocrine, nutritional and metabolic diseases; Z85.840 Personal history of malignant neoplasm of eye; Z86.16 Personal history of COVID-19; Z87.19 Personal history of other diseases of the digestive system; Z87.828 Personal history of other (healed) physical injury and trauma; Z87.891 Personal history of nicotine dependence
CPT/HCPCS: 99282; 96372

== ENCOUNTER 2025-09-17 22:01 | Emergency (ER) | payer OTHER, SELFPAY ==
[2025-09-17 22:11] VITALS: BP 163/97
[2025-09-17 22:16] VITALS: BP 163/97
[2025-09-17 22:55] LABS: Hematocrit 43.2 % (39.0-52.0); Hemoglobin 15.4 g/dL (13.0-18.0); Mean Corp Hgb Conc. 35.6 g/dL (33.0-37.0); Mean Corpuscular Volume 86.4 fL (80.0-94.0); Nucleated Red Blood Cells % 0 % (-); Platelet Count 211 10^3/uL (130-400); Red Cell Dist. Width 12.7 % (11.5-14.5)
[2025-09-17 23:08] LABS: ALT (SGPT) 25 U/L (0-50); AST (SGOT) 23 U/L (17-59); Albumin 4.9 g/dl (3.5-5.0); Alkaline Phosphatase 64 U/L (38-126); Blood Urea Nitrogen 19 mg/dl (9-20); Calcium 9.6 mg/dl (8.4-10.2); Carbon Dioxide 21 mmol/L (22-30); Chloride 101 mmol/L (98-107); Glucose 95 mg/dl (70-99); Potassium 4.1 mmol/L (3.5-5.1); Sodium 133 mmol/L (135-145); Total Protein 8.1 g/dl (6.3-8.2); eGFR > 60.00
[2025-09-17 23:21] LABS: Troponin I < 0.012 ng/ml
[2025-09-18 03:04] VITALS: BP 137/97
--- NOTE | 2025-09-18 03:29 | ED.GENMED ---
History of Present Illness
General
Chief Complaint: Allergic Reaction
Source: patient and records
Exam Limitations: none
Time Seen by Provider: 09/18/25 03:19
Nursing documentation reviewed up to this point in time: agreed with
History of Present Illness
History of Present Illness:
60-year-old male with a past medical history as noted who presents to the emergency room for evaluation of chest pain. Patient reports onset of symptoms a few days ago and they have been constant since that time although intensity waxes and wanes.
He reports a vague substernal tightness. No clear triggering or relieving factors noted. He has noted some mild associated shortness of breath. Denies any nausea, vomiting, diaphoresis. He has chronic mild cough no acute change. Denies fever or
chills. Has not noticed any swelling or pain in the legs. His only other recent symptom is generalized pruritus that he says has been ongoing for weeks without any visible rash. He denies any known cardiac history. He does have documented
history of alcohol use but denies current alcohol use and denies any smoking or drug use.
Past History
Past History
ED Past Medical History: GERD, Hypothyroidism, Psychiatric (anxiety, Depression), Other ( Left eye melanoma, head injury, Migraines, Gout, back pain, Hemorrhoids, ) and Other (COVID-18 May 2021); Negative Asthma, HTN, Hypercholesterolemia or NIDDM
ED Past Surgical History: Orthopedic (Right elbow surgery), Tonsilectomy and Other (Left inguinal hernia repair, prior head injury requiring craniotomy, Left eye tumor removed)
Patient has exhibited threatening behavior?: No
PSI?: No
Social History
Tobacco: Former smoker (Quit March 2020)
Alcohol: Chronic alcoholic (12 pack Beer and shots previously, On Vivitrol inj monthly starting Jun; relapsed 01/07/23)
Drug: None
Personal:
Living: alone
Employment: Employed (at a bar)
Family History
Family History: Other (Sister with thyroid disease); Negative Diabetes, Hypertension, Early CAD or CAD
Review of Systems
Review of Systems
All Other Systems: ROS reviewed and negative except as documented in HPI and ROS
Constitutional: Denies fever or chills
Respiratory: Reports trouble breathing
Cardiac: Reports chest pain; Denies diaphoresis, palpitations or syncope
ABD/GI: Denies abdominal pain, nausea or vomiting
: Denies flank pain
Musculoskeletal: Denies edema, neck pain or back pain
Neurological: Denies dizzy or headache
Phy Exam
Physical Exam
Physical Exam:
General: Awake, alert, oriented x3; no acute distress
Head: Normocephalic, atraumatic
Eyes: Conjunctiva normal, sclera anicteric
Throat: Airway intact, handling secretions
Neck: Trachea midline, supple without meningismus
Lungs: Clear to auscultation bilaterally, no wheezing, rales, rhonchi
Heart: Regular rate and rhythm, no murmurs, gallops, or rubs
Abd: Soft, non distended, nontender
Neuro: Grossly intact
Skin: Skin is very dry with some cracked skin on the hands and legs
Extremities: Warm and well-perfused, no edema, no calf tenderness
Scores
Heart Failure Risk
Heart Failure Risk Score: Not Applicable
Heart Score for Chest Pain Patients
STEMI patient?: No
History: Slightly or Non-Suspicious
ECG: Normal
Age: >45 - <65 years
Risk Factors: 1 or 2 Risk Factors
Troponin: </= Normal Limit
Heart Score for Chest Pain Patients: 2
Heart Score Risk: 2.5% MACE over next 6 weeks
Withdrawal Assessment of Alcohol
Withdrawal Assessment Completed?: Not applicable
Course
Orders/Labs/Results
Orders:
Orders
09/17/25 22:01
Electrocardiogram (*1) Urgent
Reason for Study: Chest Pain
EKG- Treatment ONCE
09/17/25 22:26
Complete Blood Count/With Diff Urgent
Comprehensive Metabolic Panel Urgent
Troponin I Urgent
09/18/25 03:28
CR Chest Single View Urgent
Reason For Exam: chest pain, sob
09/18/25 03:48
Lipase Urgent
Troponin I Urgent
Abnormal Lab Results
09/17/25
22:26
Immature Gran % 0.6 H %
(0-0.5)
Sodium 133 L mmol/L
(135-145)
Carbon Dioxide 21 L mmol/L
(22-30)
09/17/25 22:26
09/17/25 22:26
Vital Signs
Initial and Last Documented VS:
Initial Vital Signs
Temp Pulse Resp BP Pulse Ox
36.5 C 84 20 163/97 94
09/17/25 22:11 09/17/25 22:11 09/17/25 22:11 09/17/25 22:11 09/17/25 22:11
Last Documented Vital Signs
Temp Pulse Resp BP Pulse Ox
36.6 C 75 18 137/97 94
09/18/25 03:04 09/18/25 03:04 09/18/25 03:04 09/18/25 03:04 09/18/25 03:39
MDM/Problems Addressed
Differential Diagnosis Includes:
ACS, GERD, pancreatitis, anxiety
MDM/Problems Addressed:
60-year-old male presents for evaluation of vague chest tightness for the past few days waxing waning intensity associated with some mild shortness of breath. No clear exertional component. Hypertensive but otherwise normal vitals here. Physical
exam as noted. Aside from his acute complaints he also reports some generalized pruritus recently�he appears to have dry skin which I think is the etiology of this, advised to use moisturizer. Regarding his chest pain he had EKG in triage which
shows no acute changes from prior. CBC and CMP no clinically significant abnormalities. Initial troponin undetectable. Added lipase. Check repeat troponin. Check chest x-ray. Continue to monitor on telemetry. Reassess after the above.
Repeat troponin undetectable. Chest x-ray reviewed by me shows no acute disease. Vital signs have remained stable. No change on serial EKG. Low suspicion for emergent cause for chest pain. Stable for discharge. He has had multiple visits for
chest pain in the past he says he has never seen a student assistance counselor. At this point will refer to cardiology to be a chest pain hotline for expedited follow-up. Spoke to him about return precautions. All questions answered.
Acute Exacerbation and/or Progression of Chronic Illness:
Acutely hypertensive resolved without intervention continue to monitor but no emergent antihypertensives indicated at this point
Acute Exacerbation and/or Progression of Chronic Illness: HTN
*Radiology
Radiology exam reviewed: preliminary read by ED provider
*Pulse Oximetry
SaO2: 97
Oxygen Mode of Delivery: Room air
Patient hypoxic: no (97%)
*EKG
Interpreted by ED Provider?: Yes
Heart Rate: 76
Rate: normal
Rhythm: sinus
[place]: normal axis
Interval: normal interval
QRS Pattern: normal QRS
Ischemia: other (Anterior septal infarct [id number] from prior EKGs)
*Critical Care Note
Total Time (30-74mins, 75-104mins- exclusive of procedures): Not Applicable
Data Reviewed
Review of Other/Old Records Reveals: Labs and Records
Source: patient and records
ED Attending Note
-
Portions of this chart may have been created with voice recognition software.� Occasional wrong word or��sound alike� substitutions may have occurred due to the inherent limitations of voice recognition software.
Discharge Plan
Departure
Patient Disposition: Home (Routine Discharge)
Date of Disposition: 09/18/25
Time of Disposition: 04:56
Patient with high blood pressure during this ER visit?: Yes
Discharge Problem:
Chest pain, Dry skin
Instructions: Chest Pain DCA Follow Up
Prescriptions:
No Action
sertraline 50 mg Tablet
50 mg PO DAILY
thiamine HCl (vitamin B1) 100 mg Tablet
100 mg PO DAILY
therapeutic multivitamin Tablet
1 tab PO DAILY
methylprednisolone [Medrol (Raffy)] 4 mg tablets,dose pack
4 mg PO DIRECTED Qty: 21 0RF
omeprazole 40 mg capsule,delayed release(DR/EC)
40 mg PO DAILY Qty: 30 0RF
lorazepam [Ativan] 1 mg tablet
1 mg PO BID PRN (Reason: alcohol withdrawal) Qty: 10 0RF
sucralfate [Carafate] 1 gram tablet
1 g PO ACHS Qty: 30 0RF
pantoprazole [Protonix] 40 mg tablet,delayed release (DR/EC)
40 mg PO DAILY Qty: 30 0RF
methylprednisolone [Medrol (Raffy)] 4 mg tablets,dose pack
See Rx Instructions .ROUTE .COMPLEX Qty: 21 0RF
Rx Instructions:
orally per package directions
methocarbamol 750 mg tablet
750 - 1,500 mg PO Q8H PRN (Reason: muscle spasm) Qty: 20 0RF
Referrals:
Jerson Almanza MD [Active, Cardiology] - Call in 1-3 days for appt
Activity Restrictions/Additional Instructions:
Thank you for visiting the Emergency Department at [facility].
1. Please schedule a follow up appointment as directed. Call first thing tomorrow morning to make an appointment.
2. If indicated, please take your medications as instructed and indicated on discharge paperwork.
3. If any of your symptoms do not improve, or persist, or become more severe within 6-12 hours, please return to the emergency department for further care.
4. Please return to the emergency department if you develop a headache, neck pain/stiffness, fever greater than 100.4F, chest pain, shortness of breath, persistent nausea, vomiting, slurred speech, difficulty walking, numbness/tingling, weakness,
signs of infection or any other symptoms that are worrisome to you.
Please call [phone] if you have any questions.
Interventions
Interventions:
*General Assessment Last Done: 09/18/25 03:34
*Neglect/Abuse Screening Last Done: 09/17/25 22:11
*ED COVID-19 Vaccine History Last Done: 09/17/25 22:11
*ED Influenza Vaccine History Last Done: 09/17/25 22:11
[facility] Fall Risk Assessment Tool Last Done: 09/18/25 03:34
ED- Cardiac Assessment Last Done: 09/18/25 03:39
ED- Pulmonary Assessment Last Done: 09/18/25 03:39
ED-Skin Assessment Last Done: 09/18/25 03:39
Discharge Date and Time
Print Language: [place]ONG[place]
[2025-09-18 03:31] VITALS: BP 143/100
[2025-09-18 03:34] VITALS: BMI 28.2
[2025-09-18 04:00] VITALS: BP 150/102
[2025-09-18 04:31] LABS: Lipase 89 U/L (23-300)
[2025-09-18 04:45] LABS: Troponin I < 0.012 ng/ml
[2025-09-18 05:00] VITALS: BP 147/97
== END 2025-09-18 05:12 | disposition home or self-care (01) ==
LOC: EMR 22:01
PROVIDERS: Emergency Medicine; EMERGENCY PHYSICIAN Emergency Medicine; FAMILY PHYSICIAN Internal Medicine
DX: R07.89 Other chest pain (principal); L85.3 Xerosis cutis; K21.9 Gastro-esophageal reflux disease without esophagitis; E03.9 Hypothyroidism, unspecified; F41.8 Other specified anxiety disorders; M10.9 Gout, unspecified; Z82.49 Family history of ischemic heart disease and other diseases of the circulatory system; Z83.49 Family history of other endocrine, nutritional and metabolic diseases; Z85.840 Personal history of malignant neoplasm of eye; Z86.16 Personal history of COVID-19; Z87.19 Personal history of other diseases of the digestive system; Z87.828 Personal history of other (healed) physical injury and trauma; Z87.891 Personal history of nicotine dependence
CPT/HCPCS: 99283; 71045; 80053; 83690; 84484; 85025; 93005